=== PATIENT | female | born 1985 | race Two or more races ===

== ENCOUNTER 2016-10-09 23:13 | Inpatient (IN) | payer BC, MEDICAID, MEDICARE ==
[2016-10-10 00:44] LABS: Hematocrit 34 % (35-47); Hemoglobin 10.6 g/dl (12.0-16.0); Mean Corpuscular HGB Conc 32 g/dl (31-36); Mean Corpuscular Hemoglobin 24 pg (27-31); Mean Corpuscular Volume 76 fL (80-97); Mean Platelet Volume 8 um3 (7.4-10.4); Red Blood Count 4.38 10^6/ul (4.0-5.4); Red Cell Distribution Width 17 % (10.5-15); White Blood Count 7.2 10^3/ul (3.5-10.8)
[2016-10-10 00:56] LABS: ALT 15 U/L (7-52); Albumin 3.4 g/dL (3.2-5.2); Alkaline Phosphatase 67 U/L (34-104); BUN/Creatinine Ratio 15.9 (8-20); Blood Urea Nitrogen 10 mg/dL (6-24); CO2 Carbon Dioxide 26 mmol/L (22-32); Calcium 8.7 mg/dL (8.6-10.3); Chloride 106 mmol/L (101-111); EGFR African American 143.7 (>60); EGFR Non-African American 111.7 (>60); Globulin 3.2 g/dL (2-4); Glucose 110 mg/dL (70-100); Sodium 136 mmol/L (133-145); Total Protein 6.6 g/dL (6.4-8.9)
[2016-10-10 00:57] LABS: Acetaminophen < 15 mcg/mL; Alcohol < 10 mg/dL (<10); Salicylate < 2.50 mg/dL (<30)
[2016-10-10 01:41] LABS: AST 18 U/L (13-39); Anion Gap 4 mmol/L (2-11); Potassium 3.6 mmol/L (3.5-5.0)
--- NOTE | 2016-10-10 02:10 | ED ---
lita Mcgee Timothy, scribed for Mack Fernández MD on 10/09/16 at 2353 . Psychiatric Complaint - HPI Summary HPI Summary: Eve Rendon is a 30 yo female presenting to [facility] for a MHUE claiming "her mind is going crazy". Per triage, she denies any SI, but has thought about self- harm. She denies any drug use tonight. Her MHx includes psychiatric d/o. - History Of Current Complaint Chief Complaint: EDMentalHealth Time Seen by Provider: 10/09/16 23:48 Hx Obtained From: Patient Onset/Duration: Gradual Onset, Lasting Days, Still Present Timing: Constant Severity Initially: Moderate Severity Currently: Moderate Character: Depressed Has Suicidal: Denies: Thoughts - Allergies/Home Medications Allergies/Adverse Reactions: Allergies Allergy/AdvReac Type Severity Reaction Status Date / Time Alprazolam [From Xanax] Allergy Rash Verified 10/09/16 23:23 Aspirin [ASA] Allergy Rash Verified 10/09/16 23:23 Chlorpromazine Allergy Unknown Verified 10/09/16 23:23 [From Thorazine] Reaction Details Diazepam [From Valium] Allergy Rash Verified 10/09/16 23:23 Fentanyl Allergy Shortness Verified 10/09/16 23:23 of Breath [place] Allergy Unknown Verified 10/09/16 23:23 Reaction Details Risperidone [From Risperdal] Allergy Swelling Verified 10/09/16 23:23 Home Medications: Home Medications Benztropine TAB* [Cogentin TAB*] 1 mg PO BID 10/10/16 [History Confirmed ] Fluphenazine Decanoate* [Prolixin Decanoate*] 125 mg IM SEE INSTRUCTIONS [History Confirmed 10/10/16] Gabapentin TAB(NF) [Neurontin 600 mg TAB(NF)] 600 mg PO BID 10/10/16 [History Confirmed 10/10/16] Gabapentin TAB(NF) [Neurontin 600 mg TAB(NF)] 900 mg PO BEDTIME 10/10/16 [ History Confirmed 10/10/16] Hydrochlorothiazide TAB* [Hydrodiuril TAB*] 50 mg PO BID 10/10/16 [History Confirmed 10/10/16] Lorazepam [Ativan 2 MG TAB] 2 mg PO QID 10/10/16 [History Confirmed 10/10/16] Oxycodone TAB(NF) [Oxycodone HCl 10 MG] 10 mg PO Q6H PRN 10/10/16 [History Confirmed 10/10/16] Potassium Chloride LIQUID* [Klor-Con LIQUID*] 20 meq PO DAILY 10/10/16 [History Confirmed 10/10/16] Sertraline* [Zoloft*] 100 mg PO BID 10/10/16 [History Confirmed 10/10/16] buPROPion SR TAB* [Wellbutrin SR TAB*] 150 mg PO BID 10/10/16 [History Confirmed 10/10/16] PMH/Surg Hx/FS Hx/Imm Hx Infectious Disease History: Denies: Traveled Outside the [place] in Last 30 Days - Family History Known Family History: Positive: Cardiac Disease, Hypertension, Diabetes - Social History Hx Substance Use: Yes Hx Tobacco Use: Yes Smoking Status (MU): Heavy Every Day Tobacco Smoker Review of Systems Constitutional: Negative Eyes: Negative ENT: Negative Cardiovascular: Negative Respiratory: Negative Gastrointestinal: Negative Genitourinary: Negative Musculoskeletal: Negative Skin: Negative Neurological: Negative Positive: Depressed All Other Systems Reviewed And Are Negative: Yes Physical Exam Triage Information Reviewed: Yes Vital Signs On Initial Exam: Initial Vitals Temp Pulse Resp BP Pulse Ox 97.1 F 100 20 114/85 100 10/09/16 23:17 10/09/16 23:17 10/09/16 23:17 10/09/16 23:17 10/09/16 23:17 Vital Signs Reviewed: Yes Appearance: Positive: Well-Appearing, No Pain Distress, Well-Nourished Skin: Positive: Warm, Skin Color Reflects Adequate Perfusion, Dry Head/Face: Positive: Normal Head/Face Inspection Eyes: Positive: EOMI, KI ENT: Positive: Normal ENT inspection Neck: Positive: Supple, Nontender Respiratory/Lung Sounds: Positive: Clear to Auscultation, Breath Sounds Present Cardiovascular: Positive: RRR Abdomen Description: Positive: Nontender, Soft Bowel Sounds: Positive: Present Musculoskeletal: Positive: Normal, Strength/ROM Intact Neurological: Positive: Normal, Sensory/Motor Intact, Alert, Oriented to Person Place, Time Psychiatric: Positive: Anxious - pressured speech, Pt appears anxious Diagnostics - Vital Signs Vital Signs Temp Pulse Resp BP Pulse Ox 10/09/16 23:17 97.1 F 100 20 114/85 100 - Laboratory Lab Results: Lab Results 10/09/16 10/09/16 Range/Units 23:52 23:52 WBC 7.2 (3.5-10.8) 10^3/ul RBC 4.38 (4.0-5.4) 10^6/ul Hgb 10.6 L (12.0-16.0) g/dl Hct 34 L (35-47) % MCV 76 L (80-97) fL MCH 24 L (27-31) pg MCHC 32 (31-36) g/dl RDW 17 H (10.5-15) % Plt Count 224 (150-450) 10^3/ul MPV 8 (7.4-10.4) um3 Neut % (Auto) 49.3 (38-83) % Lymph % (Auto) 41.0 (25-47) % [place] % (Auto) 6.0 (1-9) % Eos % (Auto) 2.5 (0-6) % Baso % (Auto) 1.2 (0-2) % Absolute Neuts (auto) 3.5 (1.5-7.7) 10^3/ul Absolute Lymphs (auto) 2.9 (1.0-4.8) 10^3/ul Absolute Monos (auto) 0.4 (0-0.8) 10^3/ul Absolute Eos (auto) 0.2 (0-0.6) 10^3/ul Absolute Basos (auto) 0.1 (0-0.2) 10^3/ul Absolute Nucleated RBC 0.01 10^3/ul Nucleated RBC % 0.2 Sodium 136 (133-145) mmol/L Potassium 3.6 (3.5-5.0) mmol/L Chloride 106 (101-111) mmol/L Carbon Dioxide 26 (22-32) mmol/L Anion Gap 4 (2-11) mmol/L BUN 10 (6-24) mg/dL Creatinine 0.63 (0.51-0.95) mg/dL Est GFR ( Amer) 143.7 (>60) Est GFR (Non-Af Amer) 111.7 (>60) BUN/Creatinine Ratio 15.9 (8-20) Glucose 110 H (70-100) mg/dL Calcium 8.7 (8.6-10.3) mg/dL Total Bilirubin 0.30 (0.2-1.0) mg/dL AST 18 (13-39) U/L ALT 15 (7-52) U/L Alkaline Phosphatase 67 (34-104) U/L Total Protein 6.6 (6.4-8.9) g/dL Albumin 3.4 (3.2-5.2) g/dL Globulin 3.2 (2-4) g/dL Albumin/Globulin Ratio 1.1 (1-3) TSH 1.20 (0.34-5.60) mcIU/mL Beta HCG, Quant < 0.60 mIU/mL Salicylates < 2.50 (<30) mg/dL Acetaminophen < 15 mcg/mL Serum Alcohol < 10 (<10) mg/dL Result Diagrams: 10/09/16 23:52 10/09/16 23:52 Lab Statement: Any lab studies that have been ordered have been reviewed, and results considered in the medical decision making process. Course/Dx - Course Assessment/Plan: Eve Rendon is a 30 yo female presenting to [facility] for a MHUE. Her medication list is reviewed this visit. She is medically clear for MHUE at 0130. Per her MHUE recommendation, she will be admitted to [facility]. NO CRITICAL CARE TIME. ADMIT MHU STABLE. - Differential Dx/Clinical Impression Provider Diagnosis: Mental health problem Discharge - Discharge Plan Condition: Stable Disposition: ADMITTED TO [facility] Referrals: Non Staff,Doctor [Primary Care Provider] - The documentation as recorded by the lita brady Timothy accurately reflects the service I personally performed and the decisions made by me, Mack Fernández MD.
[2016-10-10] MEDS ORDERED: Al Hydrox/Mg Hydrox/Simet LIQ* 30 ML UDC PO PRN (04:26)
[2016-10-10] MEDS ORDERED: Mouth Piece, Nicotine* 1 EACH CARTRIDGE INH ONE (05:00)
[2016-10-10] MEDS ORDERED: Sertraline* 100 MG TAB PO SCH (09:00)
[2016-10-10] MEDS: Gabapentin CAP(*) 300 MG PO SCH ×2 (09:32→20:46)
[2016-10-10] MEDS: Vitamin THERAPEUTIC TAB PO SCH (09:32)
[2016-10-10] MEDS: Acetaminophen TAB* 325 MG PO PRN ×2 (09:32→16:13)
[2016-10-10] MEDS: Benztropine TAB* 1 MG PO SCH ×2 (09:33→20:46)
[2016-10-10] MEDS: Hydrochlorothiazide TAB* 50 MG PO SCH ×2 (09:33→20:46)
[2016-10-10] MEDS: buPROPion SR TAB.SR* 150 MG PO SCH ×2 (09:33→20:46)
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
[2016-10-10] MEDS: Sertraline* 100 MG TAB PO SCH (12:40)
[2016-10-10] MEDS: hydrOXYzine HCL TAB* 25 MG PO PRN ×2 (14:49→19:40)
[2016-10-10] MEDS ORDERED: Albuterol HFA INHALER* 8 gm MDI INH PRN (14:50)
[2016-10-10] MEDS: BENZOCAINE 20% TOPICAL PRN (15:15)
[2016-10-11] MEDS: Acetaminophen TAB* 325 MG PO PRN ×4 (02:10→18:16)
[2016-10-11] MEDS: BENZOCAINE 20% TOPICAL PRN ×2 (02:11→06:44)
[2016-10-11] MEDS: Benztropine TAB* 1 MG PO SCH ×2 (08:26→20:25)
[2016-10-11] MEDS: Sertraline* 100 MG TAB PO SCH ×2 (08:26→11:57)
[2016-10-11] MEDS: Gabapentin CAP(*) 300 MG PO SCH ×2 (08:26→20:25)
[2016-10-11] MEDS: buPROPion SR TAB.SR* 150 MG PO SCH ×2 (08:26→20:25)
[2016-10-11] MEDS: Hydrochlorothiazide TAB* 50 MG PO SCH ×2 (08:27→20:26)
[2016-10-11] MEDS: Vitamin THERAPEUTIC TAB PO SCH (08:27)
[2016-10-11] MEDS: hydrOXYzine HCL TAB* 25 MG PO PRN ×3 (08:28→18:16)
--- NOTE | 2016-10-11 11:14 | PN ---
MHU: Group Therapy Note - Service Type Service Type: 11501 Group Psychotherapy - Cognitive Behavioral Group Therapy ( CBT):Patient was attentive and participatory in CBT programming this morning, and remained in good behavioral control. Patient expressed positive insights regarding relevant treatment interventions and goals.
[2016-10-11] MEDS: Nicotine GUM* 2 MG PO PRN ×3 (11:57→18:16)
--- NOTE | 2016-10-11 13:11 | PN ---
Subjective - Subjective Service Type: 36575 Hosp care 25 min moderate complexity Subjective: Jessica reports feeling much better. She said she thinks Cocaine use caused her crisis, and was open to the idea of avoiding it and getting support for that. She affirmed she feels good about being alive, and denied urges to harm herself. She noted feeling "a little shakey" attributing it to nicotine withdrawl (we started replacement treatment). She apologized for what she framed as her manner with me yesterday. She was interested in discussing length of stay and release planning, and also asked for a medication addition. After review of options and prior experiences , she elected to try Pin[place]ney again. I reviewed it's profile, monitoring requirements, and risks, and she capably consented. We met with her , who sees her much improved today. He agreed there was a problem with her Cocaine use and supported her overall treatment here. Objective - Appearance Appearance: Obese Hygiene: Normal Grooming: Well Kept - Behavior Psychomotor Activities: Normal - Attitude and Relatedness Attitude and Relatedness: Appropriate Eye Contact: Good - Speech Quality: Unpressured Latencies: Normal Quantity: Appropriate - Mood Patient's Decription of Mood: "Okay" - Affect Observed Affect: Non-labile Affect Consistent with: Dysphoria - mild - Thought Process Patient's Thought Process: Coherent, Goal Directed Thought Content: No Passive Wish, No Suicidal Planning, No Homicidal Ideation, No Paranoid Ideation - Sensorium Experiencing Hallucinations: No, Sensorium is Clear - Level of Consciousness Level of Consciousness: Alert - Impulse Control Impulse Control: Intact - Insight and Judgement Insight and Judgement: Fair Assessment - Assessment Merits Inpatient Hospitalization: For Stabilization, To Initiate Treatment, For Ongoing Evaluation, Consolidate Improvements, For Discharge Planning Inpatient DSM-IV Dx: Schizoaffective disorder. Cocaine use disorder with induced mood symptoms. Cannabis use disorder. Borderline personality traits Clinical Impression: 30-year-old female with a history of schizoaffective disorder diagnosis, multiple prior psychiatric hospitalizations, suicide attempts, violence, self- injury, eating disorder, pseudoseizures, substance abuse, and concerns for borderline personality traits. She was admitted to the psychiatric unit coming to the hospital seeking help due to concerns over urges to cut herself with suicidal features. She apparently recently made a suicide attempt and was hospitalized in [place]. Biological factors include her report of using cocaine and cannabis currently, and her regimen with unopposed antidepressants without mood stabilizer or antipsychotic. Stabilizing here. Has an evolving clinical picture with mood improvement, better engagement. Course supports her claim that she is in a cocaine related crisis. She had apparent non-epileptic seizure-like activity 10/10, consistent with prior reported events. Medication management will involve continuing the outpatient regimen without Ativan (based on high abuse potential) and starting a retrial of Pinckney ( starting only 600mg/day given her HCTZ use). Plan - Plan Treatment Plan: Name: JESSICA BARRAGAN Birthdate: 1985 [id number] Continued Medication Management: Start Medication Medications: Current Medications Acetaminophen (Tylenol Tab*) 650 mg PO Q4H PRN PRN Reason: PAIN or TEMP > 101 F Last Admin: 10/11/16 06:44 Dose: 650 mg Al Hydrox/Mg Hydrox/Simethicone (Maalox Plus*) 30 ml PO Q4H PRN PRN Reason: INDIGESTION Albuterol (Ventolin Hfa Inhaler*) 2 puff INH Q4H PRN PRN Reason: WHEEZING/SOB Last Admin: 10/10/16 14:57 Dose: 2 puff Benztropine Mesylate (Cogentin Tab*) 1 mg PO BID [facility] Last Admin: 10/11/16 08:26 Dose: 1 mg Bupropion HCl (Wellbutrin Sr Tab*) 150 mg PO BID [facility] Last Admin: 10/11/16 08:26 Dose: 150 mg Gabapentin (Neurontin Cap(*)) 600 mg PO BID [facility] Last Admin: 10/11/16 08:26 Dose: 600 mg Hydrochlorothiazide (Hydrodiuril Tab*) 50 mg PO BID [facility] Last Admin: 10/11/16 08:27 Dose: 50 mg Hydroxyzine HCl (Atarax Tab*) 25 mg PO Q4H PRN PRN Reason: ANXIETY Last Admin: 10/11/16 08:28 Dose: 25 mg Multivitamins (Theragran Tab*) 1 tab PO DAILY [facility] Last Admin: 10/11/16 08:27 Dose: 1 tab Nicotine (Nicotine Inhaler*) 10 mg INH Q2H PRN PRN Reason: CRAVING Nicotine Polacrilex (Nicotine Gum*) 2 mg PO Q2H PRN PRN Reason: CRAVING Last Admin: 10/11/16 11:57 Dose: 2 mg Pto: Benzocaine 20% 1 dose TOPICAL QID PRN PRN Reason: TOOTHPAIN Last Admin: 10/11/16 06:44 Dose: 1 dose Sertraline HCl (Zoloft*) 100 mg PO 0800,1200 [facility] Last Admin: 10/11/16 11:57 Dose: 100 mg - Discharge Plan Discharge Plan: Outpatient Follow Up
[2016-10-11] MEDS ORDERED: Mouth Piece, Nicotine* 1 EACH CARTRIDGE ONE (18:15)
[2016-10-11] MEDS: Nicotine Inhaler* 10 MG AMP INH PRN (18:16)
[2016-10-11] MEDS: Lithium Carbonate TAB* 300 MG PO SCH (20:26)
[2016-10-12] MEDS: hydrOXYzine HCL TAB* 25 MG PO PRN ×4 (01:10→18:33)
[2016-10-12] MEDS: Acetaminophen TAB* 325 MG PO PRN ×4 (01:10→18:34)
[2016-10-12] MEDS: BENZOCAINE 20% TOPICAL PRN (01:37)
[2016-10-12] MEDS: Vitamin THERAPEUTIC TAB PO SCH (08:23)
[2016-10-12] MEDS: Lithium Carbonate TAB* 300 MG PO SCH ×2 (08:24→20:04)
[2016-10-12] MEDS: Gabapentin CAP(*) 300 MG PO SCH ×2 (08:24→20:04)
[2016-10-12] MEDS: Benztropine TAB* 1 MG PO SCH ×2 (08:24→20:04)
[2016-10-12] MEDS: Sertraline* 100 MG TAB PO SCH ×2 (08:24→11:52)
[2016-10-12] MEDS: buPROPion SR TAB.SR* 150 MG PO SCH ×2 (08:24→20:03)
[2016-10-12] MEDS: Hydrochlorothiazide TAB* 50 MG PO SCH ×2 (08:24→20:03)
[2016-10-12] MEDS: Nicotine GUM* 2 MG PO PRN ×2 (08:25→16:00)
[2016-10-12] MEDS: Nicotine PATCH 21 MG/24 HR* PATCH TRANSDERM SCH (08:50)
--- NOTE | 2016-10-12 13:34 | PN ---
Subjective - Subjective Service Type: 80363 Hosp care 15 min low complexity Subjective: Jessica reports progress - denies self harm urges, mood and outlook are "good" and she notes feeling more stable. Still feels "shaky" and thinks its due to stopping smoking, (and possibly Ativan ) - it's easily tolerable. She is eager to plan release for Saturday, agrees with medication and treatment plan, and denies side effect with Marvell. Objective - Appearance Appearance: Obese Hygiene: Normal Grooming: Well Kept - Behavior Psychomotor Activities: Normal - Attitude and Relatedness Attitude and Relatedness: Cooperative Eye Contact: Good - Speech Quality: Unpressured Latencies: Normal Quantity: Appropriate - Mood Patient's Decription of Mood: "Good" - Affect Observed Affect: Tense Affect Consistent with: Euthymia - Thought Process Patient's Thought Process: Coherent, Goal Directed Thought Content: No Passive Wish, No Suicidal Planning, No Homicidal Ideation, No Paranoid Ideation - Sensorium Experiencing Hallucinations: No, Sensorium is Clear - Level of Consciousness Level of Consciousness: Alert - Impulse Control Impulse Control: Intact - Insight and Judgement Insight and Judgement: Fair Assessment - Assessment Merits Inpatient Hospitalization: For Stabilization, To Initiate Treatment, For Ongoing Evaluation, Consolidate Improvements, For Discharge Planning Inpatient DSM-IV Dx: Schizoaffective disorder. Cocaine use disorder with induced mood symptoms. Cannabis use disorder. Borderline personality traits Clinical Impression: 30-year-old female with a history of schizoaffective disorder diagnosis, multiple prior psychiatric hospitalizations, suicide attempts, violence, self- injury, eating disorder, pseudoseizures, substance abuse, and concerns for borderline personality traits. She was admitted to the psychiatric unit coming to the hospital seeking help due to concerns over urges to cut herself with suicidal features. She apparently recently made a suicide attempt and was hospitalized in [place]. Biological factors include her report of using cocaine and cannabis currently, and her regimen with unopposed antidepressants without mood stabilizer or antipsychotic. Stabilizing here. Improving substantially on clinical basis. Has progressive mood improvement and stabilization, better engagement, lower distress. Course supports her claim that she is in a cocaine related crisis. She had apparent non-epileptic seizure-like activity 10/10, consistent with prior reported events. She is safe on checks, adherent with routines, and free of ongoing suicidal ideation. Medication management will involve continuing the outpatient regimen without Ativan (based on high abuse potential) and starting a retrial of Marvell ( started only 600mg/day given her HCTZ use). Plan - Plan Treatment Plan: Name: JESSICA BARRAGAN Birthdate: 1985 [id number] Continued Medication Management: Start Medication Medications: Current Medications Acetaminophen (Tylenol Tab*) 650 mg PO Q4H PRN PRN Reason: PAIN or TEMP > 101 F Last Admin: 10/12/16 12:54 Dose: 650 mg Al Hydrox/Mg Hydrox/Simethicone (Maalox Plus*) 30 ml PO Q4H PRN PRN Reason: INDIGESTION Last Admin: 10/11/16 20:26 Dose: 30 ml Albuterol (Ventolin Hfa Inhaler*) 2 puff INH Q4H PRN PRN Reason: WHEEZING/SOB Last Admin: 10/10/16 14:57 Dose: 2 puff Benztropine Mesylate (Cogentin Tab*) 1 mg PO BID [facility] Last Admin: 10/12/16 08:24 Dose: 1 mg Bupropion HCl (Wellbutrin Sr Tab*) 150 mg PO BID [facility] Last Admin: 10/12/16 08:24 Dose: 150 mg Gabapentin (Neurontin Cap(*)) 600 mg PO BID [facility] Last Admin: 10/12/16 08:24 Dose: 600 mg Hydrochlorothiazide (Hydrodiuril Tab*) 50 mg PO BID [facility] Last Admin: 10/12/16 08:24 Dose: 50 mg Hydroxyzine HCl (Atarax Tab*) 25 mg PO Q4H PRN PRN Reason: ANXIETY Last Admin: 10/12/16 12:54 Dose: 25 mg Marvell Carbonate (Marvell Carbonate Tab*) 300 mg PO BID [facility] Last Admin: 10/12/16 08:24 Dose: 300 mg Multivitamins (Theragran Tab*) 1 tab PO DAILY [facility] Last Admin: 10/12/16 08:23 Dose: 1 tab Nicotine (Nicotine Inhaler*) 10 mg INH Q2H PRN PRN Reason: CRAVING Last Admin: 10/11/16 18:16 Dose: 10 mg Nicotine (Nicotine Patch 21 Mg/24 Hr*) 1 patch TRANSDERM DAILY [facility] Last Admin: 10/12/16 08:50 Dose: 1 patch Nicotine Polacrilex (Nicotine Gum*) 2 mg PO Q2H PRN PRN Reason: CRAVING Last Admin: 10/12/16 08:25 Dose: 2 mg Pto: Benzocaine 20% 1 dose TOPICAL QID PRN PRN Reason: TOOTHPAIN Last Admin: 10/12/16 01:37 Dose: 1 dose Pharmacy Profile Note (Nicotine Patch Removal Note*) 1 note PATCH OFF 2100 [facility] Sertraline HCl (Zoloft*) 100 mg PO 0800,1200 [facility] Last Admin: 10/12/16 11:52 Dose: 100 mg - Discharge Plan Discharge Plan: Outpatient Follow Up
[2016-10-12] MEDS: Nicotine Inhaler* 10 MG AMP INH PRN (16:00)
[2016-10-12] MEDS: Nicotine Patch Removal NOTE PATCH OFF SCH (20:05)
[2016-10-13] MEDS: Acetaminophen TAB* 325 MG PO PRN ×2 (00:29→08:40)
[2016-10-13] MEDS: hydrOXYzine HCL TAB* 25 MG PO PRN ×4 (00:29→21:06)
[2016-10-13] MEDS: Sertraline* 100 MG TAB PO SCH ×2 (08:35→13:38)
[2016-10-13] MEDS: Benztropine TAB* 1 MG PO SCH ×2 (08:36→21:02)
[2016-10-13] MEDS: buPROPion SR TAB.SR* 150 MG PO SCH ×2 (08:36→21:01)
[2016-10-13] MEDS: Gabapentin CAP(*) 300 MG PO SCH ×2 (08:36→21:01)
[2016-10-13] MEDS: Lithium Carbonate TAB* 300 MG PO SCH ×2 (08:37→21:01)
[2016-10-13] MEDS: Vitamin THERAPEUTIC TAB PO SCH (08:38)
[2016-10-13] MEDS: Nicotine PATCH 21 MG/24 HR* PATCH TRANSDERM SCH (08:38)
[2016-10-13] MEDS: Nicotine GUM* 2 MG PO PRN (08:40)
[2016-10-13] MEDS: Hydrochlorothiazide TAB* 50 MG PO SCH ×2 (08:41→21:01)
--- NOTE | 2016-10-13 14:19 | PN ---
Subjective - Subjective Service Type: 61477 Hosp care 15 min low complexity Subjective: I reviewed Dr Aparicio's sign-out and staff notes since Saturday afternoon. We briefly reviewed events leading to hospitalization (which she attributes to cocaine use). Mood is "really good" and rates depression as 1/10 and anxiety as 4/10 (10 being the worst). Some anxiety that she won't be discharged on Saturday. Slept well, but did take Tylenol in the middle of the night due to headache. Daytime energy is stable. Appetite is stable. Notes mild headache but denies other physical complaints. Denies medication side effects (other than headache) . Pleased that her mother came to visit today (it went well). She is future oriented and is excited to see her son after discharge. She denies SI or thoughts of self-harm. Denies thoughts to harm others. Denies hallucinations, paranoia. Objective - Appearance Appearance: Obese, Other - found in milieu, socializing with other pts Dysmorphic Features: No Grooming: Fairly Well Kept - Behavior Psychomotor Activities: Normal Exhibits Abnormal Movement: No - Attitude and Relatedness Attitude and Relatedness: Cooperative Eye Contact: Good - Speech Quality: Unpressured Latencies: Normal Quantity: Terse - simple language - Mood Patient's Decription of Mood: "Good" - Affect Observed Affect: Non-labile Affect Consistent with: Euthymia - Thought Process Patient's Thought Process: Coherent - concrete Thought Content: No Passive Wish, No Suicidal Planning, No Homicidal Ideation, No Paranoid Ideation - Sensorium Experiencing Hallucinations: No, Sensorium is Clear - Level of Consciousness Level of Consciousness: Alert Orientation: Yes Intact, Yes Orientated to Time, Yes Orientated to Place, Yes Orientated to Person - Impulse Control Impulse Control: Intact - Insight and Judgement Insight and Judgement: Fair Assessment - Assessment Merits Inpatient Hospitalization: For Ongoing Evaluation, Consolidate Improvements, For Discharge Planning, Pending Safe DC Plan Inpatient DSM-IV Dx: Schizoaffective disorder. Cocaine use disorder with induced mood symptoms. Cannabis use disorder. Borderline personality traits Clinical Impression: 30yo female with a hx of schizoaffective d/o, eating disorder, pseudoseizures, substance misuse, cluster b traits and past suicide attempts and psychiatric hospitalizations admitted for urges to self-harm. Doing well and tolerating recent med change. Plan - Plan Treatment Plan: Name: JESSICA BARRAGAN Birthdate: 1985 [id number] -to continue current meds Medications: Current Medications Acetaminophen (Tylenol Tab*) 650 mg PO Q4H PRN PRN Reason: PAIN or TEMP > 101 F Last Admin: 10/13/16 08:40 Dose: 650 mg Al Hydrox/Mg Hydrox/Simethicone (Maalox Plus*) 30 ml PO Q4H PRN PRN Reason: INDIGESTION Last Admin: 10/11/16 20:26 Dose: 30 ml Albuterol (Ventolin Hfa Inhaler*) 2 puff INH Q4H PRN PRN Reason: WHEEZING/SOB Last Admin: 10/10/16 14:57 Dose: 2 puff Benztropine Mesylate (Cogentin Tab*) 1 mg PO BID [facility] Last Admin: 10/13/16 08:36 Dose: 1 mg Bupropion HCl (Wellbutrin Sr Tab*) 150 mg PO BID [facility] Last Admin: 10/13/16 08:36 Dose: 150 mg Gabapentin (Neurontin Cap(*)) 600 mg PO BID [facility] Last Admin: 10/13/16 08:36 Dose: 600 mg Hydrochlorothiazide (Hydrodiuril Tab*) 50 mg PO BID [facility] Last Admin: 10/13/16 08:41 Dose: 50 mg Hydroxyzine HCl (Atarax Tab*) 25 mg PO Q4H PRN PRN Reason: ANXIETY Last Admin: 10/13/16 08:40 Dose: 25 mg Russell Carbonate (Russell Carbonate Tab*) 300 mg PO BID [facility] Last Admin: 10/13/16 08:37 Dose: 300 mg Multivitamins (Theragran Tab*) 1 tab PO DAILY [facility] Last Admin: 10/13/16 08:38 Dose: Not Given Nicotine (Nicotine Inhaler*) 10 mg INH Q2H PRN PRN Reason: CRAVING Last Admin: 10/12/16 16:00 Dose: 10 mg Nicotine (Nicotine Patch 21 Mg/24 Hr*) 1 patch TRANSDERM DAILY [facility] Last Admin: 10/13/16 08:38 Dose: 1 patch Nicotine Polacrilex (Nicotine Gum*) 2 mg PO Q2H PRN PRN Reason: CRAVING Last Admin: 10/13/16 08:40 Dose: 2 mg Pto: Benzocaine 20% 1 dose TOPICAL QID PRN PRN Reason: TOOTHPAIN Last Admin: 10/12/16 01:37 Dose: 1 dose Pharmacy Profile Note (Nicotine Patch Removal Note*) 1 note PATCH OFF 2099 [facility] Last Admin: 10/12/16 20:05 Dose: 1 note Sertraline HCl (Zoloft*) 100 mg PO 0800,1200 [facility] Last Admin: 10/13/16 13:38 Dose: 100 mg
[2016-10-13] MEDS: BENZOCAINE 20% TOPICAL PRN (21:06)
[2016-10-13] MEDS: Nicotine Patch Removal NOTE PATCH OFF SCH (21:07)
[2016-10-14] MEDS: Acetaminophen TAB* 325 MG PO PRN ×3 (05:55→20:09)
[2016-10-14] MEDS: Nicotine PATCH 21 MG/24 HR* PATCH TRANSDERM SCH (08:50)
[2016-10-14] MEDS: Gabapentin CAP(*) 300 MG PO SCH ×2 (08:53→20:08)
[2016-10-14] MEDS: Sertraline* 100 MG TAB PO SCH ×2 (08:53→12:31)
[2016-10-14] MEDS: Vitamin THERAPEUTIC TAB PO SCH (08:53)
[2016-10-14] MEDS: Lithium Carbonate TAB* 300 MG PO SCH ×2 (08:53→20:09)
[2016-10-14] MEDS: Benztropine TAB* 1 MG PO SCH ×2 (08:54→20:10)
[2016-10-14] MEDS: buPROPion SR TAB.SR* 150 MG PO SCH ×2 (08:54→20:09)
[2016-10-14] MEDS: Hydrochlorothiazide TAB* 50 MG PO SCH ×2 (08:55→20:08)
[2016-10-14] MEDS: hydrOXYzine HCL TAB* 25 MG PO PRN ×2 (08:56→20:09)
[2016-10-14] MEDS: Nicotine GUM* 2 MG PO PRN (08:57)
[2016-10-14] MEDS: Nicotine Patch Removal NOTE PATCH OFF SCH (20:10)
[2016-10-15] MEDS: hydrOXYzine HCL TAB* 25 MG PO PRN (06:23)
[2016-10-15] MEDS: Acetaminophen TAB* 325 MG PO PRN (06:23)
[2016-10-15 07:17] VITALS: BP 141/98
[2016-10-15] MEDS: Lithium Carbonate TAB* 300 MG PO SCH (08:29)
[2016-10-15] MEDS: Benztropine TAB* 1 MG PO SCH (08:29)
[2016-10-15] MEDS: Gabapentin CAP(*) 300 MG PO SCH (08:29)
[2016-10-15] MEDS: Vitamin THERAPEUTIC TAB PO SCH (08:29)
[2016-10-15] MEDS: Nicotine PATCH 21 MG/24 HR* PATCH TRANSDERM SCH (08:30)
[2016-10-15] MEDS: Sertraline* 100 MG TAB PO SCH ×2 (08:30→12:48)
[2016-10-15] MEDS: Hydrochlorothiazide TAB* 50 MG PO SCH (08:33)
[2016-10-15] MEDS: buPROPion SR TAB.SR* 150 MG PO SCH (08:34)
--- NOTE | 2016-10-15 10:02 | DS ---
Subjective - Subjective Service Types: 07381 [facility] Day Mgmt simple under 30 min Discharge Date: 10/15/16 Subjective: Eve remained interested in discharge today. She denied subjective setbacks, though she acknowledged getting very upset this weekend - she cited a peer cutting herself and bleeding on the floor. She notes feeling calm and in control now, denies unmanageable symptoms, emotional pain, challenging anxiety. She affirms she and others are safe - denies self harm urges, suicidal or homicidal ideation. We reviewed medications and aftercare plan. We specifically reconciled her Rx. for, and use of, Prolixin decanoate. Pharmacy ([facility]) indicated no use since May due to her concern for cost. Eve said she is interested in, and willing, to take it and asks for 25 mg dose of Decanoate (prior dose was apparently 75mg). This I think was reasonable. She affirms she sees no barriers to routine support and care, or emergency help if needed again. We discussed Cocaine - she affirms sobriety is a priority and that she has the resources to attain it - and she agrees to make it a focus of treatment. Objective - Appearance Appearance: Obese Hygiene: Normal Grooming: Well Kept - Behavior Psychomotor Activities: Normal - Attitude and Relatedness Attitude and Relatedness: Cooperative Eye Contact: Good - Speech Quality: Unpressured Latencies: Normal Quantity: Appropriate - Mood Patient's Decription of Mood: "Anxious" - Affect Observed Affect: Non-labile Affect Consistent with: Dysphoria - mild - Thought Process Patient's Thought Process: Coherent, Goal Directed Thought Content: No Passive Wish, No Suicidal Planning, No Homicidal Ideation, No Paranoid Ideation - Sensorium Experiencing Hallucinations: No, Sensorium is Clear - Level of Consciousness Level of Consciousness: Alert - Impulse Control Impulse Control: Intact - Insight and Judgement Insight and Judgement: Fair Treatment Course & Assessment Clinical Course & Impression: 30-year-old female with a history of schizoaffective disorder diagnosis, multiple prior psychiatric hospitalizations, suicide attempts, violence, self- injury, eating disorder, pseudoseizures, substance abuse, and concerns for borderline personality traits. She was admitted to the psychiatric unit coming to the hospital seeking help due to concerns over urges to cut herself with suicidal features. She apparently recently made a suicide attempt and was hospitalized in [place]. Biological factors include her report of using cocaine and cannabis currently, and her regimen with unopposed antidepressants without mood stabilizer (initially my understanding was that she was not on an antipsychotic , but in planning release found that she was at least intended to be getting Prolixin injections, but had none since May). 10/15/16 Clear for release. Eve stabilized here, and she attained substantial improvement on clinical basis. She quickly demonstrated progressive mood improvement - with reduced dysphoria and mood lability, better engagement, and lower distress. She had a setback 10/13 with some agitation and threatening stances - with clear precipitant of a peer cutting herself with a razor and bleeding on the floor. She settled down after that and at this time has very low symptom burden. She had apparent non-epileptic seizure-like activity 10/10, consistent with prior reported events. She was basically safe on checks, adherent with routines, and free of ongoing suicidal ideation or self harm urges. Her course, with rapid progress, supports her claim that she was in a cocaine related crisis. She appears more motivated for sobriety and accepts that her use be a focus of ongoing treatment. Medication management involved continuing the outpatient regimen without Ativan (based on high abuse potential) and starting a retrial of Pisek (started only 600mg/day given her HCTZ use - initial level 10/15 was 0.41). Additionally, we restarted Prolixin Decanoate at a reduced dose of 25mg per injection ([id number]). Given her improvements, she is appropriate again for outpatient care. Based on her history and conditions, Eve is at high chronic risk for suicide and violence. At this time acute risk is assessed as reduced and acceptable for outpatient status based on her benign current thinking and behavior, her lower symptom burden, and the absence of acute impairing factors. Clear for Discharge: Adequate Clinical Respons, Acceptable Safety Profile, Low Utility of Inpt Care Inpatient DSM-IV Dx: Schizoaffective disorder. Cocaine use disorder with induced mood symptoms. Cannabis use disorder. Borderline personality traits Discharge Planning - Discharge Planning Discharge Plan: Outpatient Follow Up Outpatient Program: Private Clinician(s) Recommendations for Continuing Care: Medication Management, Psychotherapy, Substance Abuse Counseling, Routine Metabolic Monitoring, Therapeutic Drug Levels, Primary Care Followup Medications: Current Medications Albuterol (Ventolin Hfa Inhaler*) 2 puff INH Q4H PRN PRN Reason: WHEEZING/SOB Last Admin: 10/10/16 14:57 Dose: 2 puff Benztropine Mesylate (Cogentin Tab*) 1 mg PO BID [facility] Last Admin: 10/15/16 08:29 Dose: 1 mg Bupropion HCl (Wellbutrin Sr Tab*) 150 mg PO BID [facility] Last Admin: 10/15/16 08:34 Dose: 150 mg Gabapentin (Neurontin Cap(*)) 600 mg PO BID [facility] Last Admin: 10/15/16 08:29 Dose: 600 mg Hydrochlorothiazide (Hydrodiuril Tab*) 50 mg PO BID [facility] Last Admin: 10/15/16 08:33 Dose: 50 mg Pisek Carbonate (Pisek Carbonate Tab*) 300 mg PO BID [facility] Last Admin: 10/15/16 08:29 Dose: 300 mg Nicotine (Nicotine Inhaler*) 10 mg INH Q2H PRN PRN Reason: CRAVING Last Admin: 10/12/16 16:00 Dose: 10 mg Sertraline HCl (Zoloft*) 100 mg PO 0800,1200 [facility] Last Admin: 10/15/16 08:30 Dose: 100 mg Prolixin Decanoate 25mg IM [id number] - given 10/15/16 Discharge Planning: Prescriptions provided for discharge [x] Yes Pisek Follow up care details as per social work arrangements. Patient response to discharge plan: [x] eager for discharge [] agreeable with discharge plan [] ambivalent about discharge [] disagrees with discharge today
[2016-10-15 10:06] LABS: BUN/Creatinine Ratio 16.7 (8-20); Calcium 9.8 mg/dL (8.6-10.3); EGFR African American 123.2 (>60); EGFR Non-African American 95.8 (>60); Potassium 3.3 mmol/L (3.5-5.0)
[2016-10-15 10:34] LABS: Lithium 0.41 mmol/L (0.6-1.2)
[2016-10-15] MEDS ORDERED: Benztropine TAB* 1 MG PO SCH (11:00)
[2016-10-15] MEDS ORDERED: Fluphenazine Decanoate* 25 MG/ML 5 ML VIAL IM SCH (13:00)
== END 2016-10-15 12:50 | disposition home or self-care (01) | DRG 885 ==
LOC: ED 23:13 → BSU 10-10 03:49
PROVIDERS: ADMIT Psychiatry & Neurology Psychiatry; ATTEND Psychiatry & Neurology Psychiatry
DX: F25.9 Schizoaffective disorder, unspecified (principal); R45.851 Suicidal ideations; Z68.42 Body mass index [BMI] 45.0-49.9, adult; F14.14 Cocaine abuse with cocaine-induced mood disorder; F12.10 Cannabis abuse, uncomplicated; E66.01 Morbid (severe) obesity due to excess calories; I10 Essential (primary) hypertension; Z88.6 Allergy status to analgesic agent; Z88.8 Allergy status to other drugs, medicaments and biological substances; Z81.8 Family history of other mental and behavioral disorders
CPT/HCPCS: 36415; 80048; 80053; 80178; 80320; 80329; 84443; 84702; 85025; 90853; 99222; 99231; 99232; 99238; A9270-GY; G0480; J2680

== ENCOUNTER 2017-10-07 22:28 | Emergency (ER) | payer MEDICARE ==
[2017-10-07 23:48] LABS: Hematocrit 25 % (35-47); Hemoglobin 7.9 g/dl (12.0-16.0); Mean Corpuscular HGB Conc 32 g/dl (31-36); Mean Corpuscular Hemoglobin 19 pg (27-31); Mean Corpuscular Volume 62 fL (80-97); Mean Platelet Volume 8.3 um3 (7.4-10.4); Platelet Count 276 10^3/ul (150-450); Red Blood Count 4.06 10^6/ul (4.00-5.40); Red Cell Distribution Width 26 % (10.5-15); White Blood Count 6.7 10^3/ul (3.5-10.8)
[2017-10-07 23:57] LABS: EGFR Non-African American 105.2 (>60)
[2017-10-08 00:34] VITALS: BP 0/0
--- NOTE | 2017-10-08 00:34 | ED ---
Stewart Mcgee Tariq, scribed for Moreno Otoole MD on 10/08/17 at 0021 . Complex/Multi-Sys Presentation - HPI Summary HPI Summary: A 31 y/o female presents to ED c/o abdominal and tooth pain. Pt stated that her tooth hurts for the pass couple days. Additionally, she states that she has ulcers which is why her abdomen hurts. She also feels depressed and "really sick in bedside way". She has been feeling anxious for the past 8 months and thinks she has PTSD. Pt denies CP and SOB.Pt asks for MHE. No SIs. - History Of Current Complaint Chief Complaint: EDMentalHealth Time Seen by Provider: 10/07/17 23:22 Hx Obtained From: Patient Onset/Duration: Gradual Onset Timing: Weeks Severity Currently: Mild Aggravating Factor(s): Nothing Alleviating Factor(s): Nothing Associated Signs And Symptoms: Positive: Abdominal Pain, Other - Tooth pain. Negative: Chest Pain - Allergies/Home Medications Allergies/Adverse Reactions: Allergies Allergy/AdvReac Type Severity Reaction Status Date / Time alprazolam [From Xanax] Allergy Rash Verified 10/07/17 23:21 aspirin Allergy Rash Verified 10/07/17 23:21 chlorpromazine Allergy Unknown Verified 10/07/17 23:21 [From Thorazine] Reaction Details diazepam [From Valium] Allergy Rash Verified 10/07/17 23:21 fentanyl Allergy Shortness Verified 10/07/17 23:21 of Breath haloperidol [From Haldol] Allergy Unknown Verified 10/07/17 23:21 Reaction Details risperidone [From Risperdal] Allergy Swelling Verified 10/07/17 23:21 PMH/Surg Hx/FS Hx/Imm Hx Cardiovascular History: Reports: Hx Hypertension Sensory History: Denies: Hx Contacts or Glasses, Hx Hearing Aid Opthamlomology History: Denies: Hx Contacts or Glasses Psychiatric History: Reports: Hx Anxiety, Hx Eating Disorder - Anorexia & Bulimia, Hx Depression, Hx Inpatient Treatment, Hx Community Mental Health Tx, Hx Substance Abuse Infectious Disease History: No Infectious Disease History: Denies: Traveled Outside the [place] in Last 30 Days - Family History Known Family History: Positive: Cardiac Disease, Hypertension, Diabetes - Social History Alcohol Use: Rare Hx Substance Use: Yes Substance Use Type: Reports: Cocaine, Marijuana Hx Tobacco Use: Yes Smoking Status (MU): Heavy Every Day Tobacco Smoker Type: Cigarettes Review of Systems Positive: Other - tooth pain. Negative: Fever Negative: Chest Pain Positive: Abdominal Pain All Other Systems Reviewed And Are Negative: Yes Physical Exam - Summary Physical Exam Summary: Appearance: Well appearing, no pain distress Skin: warm, dry, reflects adequate perfusion Head/face: normal Eyes: EOMI, KI ENT: normal Neck: supple, non-tender Respiratory: CTA, breath sounds present Cardiovascular: RRR, pulses symmetrical Abdomen: non-tender, soft Bowel Sounds: present Musculoskeletal: normal, strength/ROM intact Neuro: normal, sensory motor intact, A&Ox3 As per Dr. Otoole, pt refused Abx Triage Information Reviewed: Yes Vital Signs On Initial Exam: Initial Vitals Temp Pulse Resp BP Pulse Ox 98.6 F 113 20 140/89 99 10/07/17 22:34 10/07/17 22:34 10/07/17 22:34 10/07/17 22:34 10/07/17 22:34 Vital Signs Reviewed: Yes Diagnostics - Vital Signs Vital Signs Temp Pulse Resp BP Pulse Ox 10/07/17 22:34 98.6 F 113 20 140/89 99 - Laboratory Lab Results: Lab Results 10/07/17 10/07/17 Range/Units 23:33 23:33 WBC 6.7 (3.5-10.8) 10^3/ul RBC 4.06 (4.00-5.40) 10^6/ul Hgb 7.9 L (12.0-16.0) g/dl Hct 25 L (35-47) % MCV 62 L (80-97) fL MCH 19 L (27-31) pg MCHC 32 (31-36) g/dl RDW 26 H (10.5-15) % Plt Count 276 (150-450) 10^3/ul MPV 8.3 (7.4-10.4) um3 Neut % (Auto) Pending Lymph % (Auto) Pending Hill % (Auto) Pending Eos % (Auto) Pending Baso % (Auto) Pending Absolute Neuts (auto) Pending Absolute Lymphs (auto) Pending Absolute Monos (auto) Pending Absolute Eos (auto) Pending Absolute Basos (auto) Pending Absolute Nucleated RBC Pending Nucleated RBC % Pending Sodium 137 (135-145) mmol/L Potassium 3.5 (3.5-5.0) mmol/L Chloride 106 (101-111) mmol/L Carbon Dioxide 23 (22-32) mmol/L Anion Gap 8 (2-11) mmol/L BUN 11 (6-24) mg/dL Creatinine 0.66 (0.51-0.95) mg/dL Est GFR ( Amer) 135.2 (>60) Est GFR (Non-Af Amer) 105.2 (>60) BUN/Creatinine Ratio 16.7 (8-20) Glucose 87 (70-100) mg/dL Calcium 9.1 (8.6-10.3) mg/dL Total Bilirubin 0.20 (0.2-1.0) mg/dL AST 13 (13-39) U/L ALT 12 (7-52) U/L Alkaline Phosphatase 92 (34-104) U/L Total Protein 7.1 (6.4-8.9) g/dL Albumin 3.6 (3.2-5.2) g/dL Globulin 3.5 (2-4) g/dL Albumin/Globulin Ratio 1.0 (1-3) TSH Pending Beta HCG, Quant < 0.60 mIU/mL Salicylates < 2.50 (<30) mg/dL Acetaminophen < 15 mcg/mL Serum Alcohol < 10 (<10) mg/dL Result Diagrams: 10/07/17 23:33 10/07/17 23:33 Lab Statement: Any lab studies that have been ordered have been reviewed, and results considered in the medical decision making process. Complex Multi-Symp Course/Dx Course Of Treatment: Patient reports that she has been all over the state seeking out mental health care. She had previously had a good experience here so she decided to drive several hours away to come to this facility. She requested pain medication for dental pain. The dentition is showing no evidence for gingival inflammation, erosions. She also cannot take NSAIDs due to her chronic gastritis and anemia. I offered her a dental block and she refused this. She had stated that she wanted to see mental health however after being told she would not receive opiate pain medication she decided she did not want to be seen any longer. She is not actively suicidal and has care in her home town. She has not seen dental for this pain. She does have evidence of chronic anemia likely due to gastritis and her status post gastric bypass. - Diagnoses Provider Diagnoses: Depression, Chronic abdominal pain, Pain, dental, Anemia, Drug-seeking behavior Discharge - Sign-Out/Discharge Documenting (check all that apply): Discharge/Admit/Transfer - Discharge - Discharge Plan Condition: Stable Disposition: HOME Prescriptions: Penicillin VK 500 MG TAB(NF) [Penicillin VK 500 mg Tab] 500 mg PO QID #40 tab Patient Education Materials: Depression (ED), Toothache (ED) Referrals: No Primary Care Phys,NOPCP [Primary Care Provider] - Additional Instructions: See your doctor and dentist on arrival home in [place], [place]. Tylenol can be taken for dental discomfort. An antibiotic has been prescribed for your teeth. See your mental health provider or family doctor for referral to mental health agency or psychiatrist. - Billing Disposition and Condition Condition: STABLE Disposition: Home The documentation as recorded by the Stewart brady Tariq accurately reflects the service I personally performed and the decisions made by me, Moreno Otoole MD.
[2017-10-08 01:29] LABS: ABS Basophils 0.1 10^3/ul (0-0.2); ABS Eosinophils 0.1 10^3/ul (0-0.6); ABS Lymphocytes 1.7 10^3/ul (1.0-4.8); ABS Monocytes 0.5 10^3/ul (0-0.8); ABS Neutrophils 4.3 10^3/ul (1.5-7.7); ABS Nucleated RBC 0 10^3/ul; Eosinophil % 2.1 % (0-6); Lymphocyte % 24.7 % (25-47); Nucleated Red Blood Cells % 0; Tear Drop Cells 1+
== END 2017-10-08 00:15 | disposition home or self-care (01) ==
LOC: ED 22:28
DX: R10.9 Unspecified abdominal pain (principal); G89.29 Other chronic pain; F32.9 Major depressive disorder, single episode, unspecified; D64.9 Anemia, unspecified; K08.89 Other specified disorders of teeth and supporting structures; F17.210 Nicotine dependence, cigarettes, uncomplicated; Z72.89 Other problems related to lifestyle; Z88.6 Allergy status to analgesic agent
CPT/HCPCS: 36415; 80053; 80320; 80329; 84443; 84702; 85025; 85060; 99282; G0480

== ENCOUNTER 2017-10-30 09:15 | Emergency (ER) | payer MEDICARE ==
[2017-10-30] MEDS ORDERED: Ondansetron ODT TAB* 4 MG PO ONE (10:30)
[2017-10-30] MEDS ORDERED: Diazepam TAB(*) 5 MG PO ONE ×2 (10:30→13:04)
--- NOTE | 2017-10-30 10:38 | ED ---
Psychiatric Complaint - HPI Summary HPI Summary: This patient is a 31 year old F presenting to [facility] accompanied by her with a chief complaint of SI with a plan since last night 10/29/17. Denies sleeping at nights, denies drug, alcohol use. States her plan is to overdose on pills. - History Of Current Complaint Chief Complaint: EDMentalHealth Time Seen by Provider: 10/30/17 09:33 Hx Obtained From: Patient Onset/Duration: Sudden Onset, Lasting Hours Timing: Constant Severity Initially: Moderate Severity Currently: Moderate Character: Depressed, Anxious Aggravating Factor(s): Nothing Alleviating Factor(s): Nothing Associated Signs And Symptoms: Positive: Sleep Disturbance, Appetite Change Related History: Positive For: Prior Psychiatric Issues Has Suicidal: Reports: Thoughts, With A Plan, Has Prior Attempt(s) - Allergies/Home Medications Allergies/Adverse Reactions: Allergies Allergy/AdvReac Type Severity Reaction Status Date / Time alprazolam [From Xanax] Allergy Rash Verified 10/30/17 10:01 aripiprazole [From Abilify] Allergy Anaphylatic Verified 10/30/17 10:02 Shock aspirin Allergy Rash Verified 10/30/17 10:01 chlorpromazine Allergy Unknown Verified 10/30/17 10:01 [From Thorazine] Reaction Details diazepam [From Valium] Allergy Rash Verified 10/30/17 10:01 divalproex sodium Allergy Anaphylatic Verified 10/30/17 10:02 [From Depakote] Shock fentanyl Allergy Shortness Verified 10/30/17 10:01 of Breath haloperidol [From Haldol] Allergy Unknown Verified 10/30/17 10:01 Reaction Details quetiapine [From Seroquel] Allergy Anaphylatic Verified 10/30/17 10:02 Shock risperidone [From Risperdal] Allergy Swelling Verified 10/30/17 10:01 tramadol Allergy Anaphylatic Verified 10/30/17 10:02 Shock Home Medications: Home Medications Acetaminophen TAB* [Tylenol TAB*] 650 mg PO Q4H PRN 10/30/17 [History Confirmed 10/30/17] Gabapentin CAP(*) [Neurontin 300 CAP(*)] 300 mg PO BID 10/30/17 [History Confirmed 10/30/17] Gabapentin CAP(*) [Neurontin 300 CAP(*)] 900 mg PO BEDTIME 10/30/17 [History Confirmed 10/30/17] Hydrochlorothiazide TAB* [Hydrodiuril TAB*] 50 mg PO BID 10/30/17 [History Confirmed 10/30/17] Sertraline* [Zoloft*] 200 mg PO QAM 10/30/17 [History Confirmed 10/30/17] clonazePAM TAB(*) [KlonoPIN TAB(*)] 2 mg PO TID PRN 10/30/17 [History Confirmed 10/30/17] PMH/Surg Hx/FS Hx/Imm Hx Cardiovascular History: Reports: Hx Hypertension Sensory History: Denies: Hx Contacts or Glasses, Hx Hearing Aid Opthamlomology History: Denies: Hx Contacts or Glasses EENT History: Denies: Hx Deafness Psychiatric History: Reports: Hx Anxiety, Hx Eating Disorder - Anorexia & Bulimia, Hx Depression, Hx Inpatient Treatment, Hx Community Mental Health Tx, Hx Substance Abuse Infectious Disease History: No Infectious Disease History: Denies: Traveled Outside the [place] in Last 30 Days - Family History Known Family History: Positive: Cardiac Disease, Hypertension, Diabetes - Social History Alcohol Use: Rare Hx Substance Use: Yes Substance Use Type: Reports: Marijuana Hx Tobacco Use: Yes Smoking Status (MU): Heavy Every Day Tobacco Smoker Type: Cigarettes Review of Systems Positive: Fatigue, Other - anorexia. Negative: Fever, Chills Negative: Erythema Negative: Sore Throat Negative: Chest Pain Negative: Shortness Of Breath, Cough Negative: Abdominal Pain, Vomiting, Nausea Negative: dysuria, hematuria Negative: Myalgia, Edema Negative: Rash Neurological: Other - NEGATIVE: dizziness Positive: Anxious, Depressed, Other - SI with plan All Other Systems Reviewed And Are Negative: Yes Physical Exam - Summary Physical Exam Summary: Constitutional: Well-developed, Well-nourished, Alert. (-) Distressed Skin: Warm, Dry HENT: Normocephalic; Atraumatic Eyes: Conjunctiva normal Neck: Musculoskeletal ROM normal neck. (-) JVD, (-) Stridor, (-) Tracheal deviation Cardio: Rhythm regular, rate normal, Heart sounds normal; Intact distal pulses; The pedal pulses are 2+ and symmetric. Radial pulses are 2+ and symmetric. (-) Murmur Pulmonary/Chest wall: Effort normal. (-) Respiratory distress, (-) Wheezes, (-) Rales Abd: Soft, (-), epigastric tenderness, (-) Distension, (-) Guarding, (-) Rebound Musculoskeletal: (-) Edema Lymph: (-) Cervical adenopathy Neuro: Alert, Oriented x3 Psych: Mood and affect Normal Triage Information Reviewed: Yes Vital Signs On Initial Exam: Initial Vitals Temp Pulse Resp BP Pulse Ox 97.8 F 86 17 114/72 99 10/30/17 09:17 10/30/17 09:17 10/30/17 09:17 10/30/17 09:17 10/30/17 09:17 Vital Signs Reviewed: Yes Diagnostics - Vital Signs Vital Signs Temp Pulse Resp BP Pulse Ox 10/30/17 09:17 97.8 F 86 17 114/72 99 - Laboratory Result Diagrams: 10/30/17 10:51 10/30/17 10:51 Lab Statement: Any lab studies that have been ordered have been reviewed, and results considered in the medical decision making process. Re-Evaluation - Re-Evaluation First Eval Re-Evaluation Time: 11:40 Change: Unchanged Comment: PT endorses oral intake low due to depression, diarrhea. Second Eval Re-Evaluation Time: 12:31 Change: Unchanged Comment: Pt goes between SI, no SI. she "wants to ". Pt told psych party plan sales consultant John that she has no SI, wants a prescription to valium. Will not prescribe it as she has prior history of OD suicide attempt. Course/Dx - Course Course Of Treatment: Pt given valium, zofran, and klor-con liquid. - Differential Dx/Clinical Impression Provider Diagnosis: Anxiety Discharge - Sign-Out/Discharge Documenting (check all that apply): Patient Departure - DISCHARGE - Discharge Plan Condition: Stable Disposition: HOME Referrals: No Primary Care Phys,NOPCP [Primary Care Provider] - Additional Instructions: RETURN TO EMERGENCY DEPARTMENT FOR ANY CHANGING OR WORSENING SYMPTOMS. - Billing Disposition and Condition Condition: STABLE Disposition: Home
[2017-10-30 11:10] LABS: ABS Basophils 0.1 10^3/ul (0-0.2); ABS Eosinophils 0.2 10^3/ul (0-0.6); ABS Lymphocytes 1.6 10^3/ul (1.0-4.8); ABS Monocytes 0.4 10^3/ul (0-0.8); ABS Neutrophils 5.1 10^3/ul (1.5-7.7); ABS Nucleated RBC 0 10^3/ul; Eosinophil % 2.2 % (0-6); Hematocrit 27 % (35-47); Hemoglobin 8.5 g/dl (12.0-16.0); Lymphocyte % 21.5 % (25-47); Mean Corpuscular HGB Conc 31 g/dl (31-36); Mean Corpuscular Hemoglobin 19 pg (27-31); Mean Corpuscular Volume 61 fL (80-97); Mean Platelet Volume 8.4 um3 (7.4-10.4); Nucleated Red Blood Cells % 0; Platelet Count 203 10^3/ul (150-450); Red Cell Distribution Width 21 % (10.5-15); White Blood Count 7.4 10^3/ul (3.5-10.8)
[2017-10-30 11:25] LABS: EGFR Non-African American 85.5 (>60)
[2017-10-30] MEDS ORDERED: Potassium Chloride LIQUID* 20 MEQ PACKET PO ONE (11:37)
[2017-10-30] MEDS ORDERED: diPHENhydraMINE IV* 50 MG/ML 1 ml VIAL (BENADRYL) IM ONE (13:51)
[2017-10-30] MEDS ORDERED: Haloperidol INJ IV/IM* 5 MG/ML AMP IM ONE (13:51)
[2017-10-30 14:11] LABS: Urine Appearance Cloudy; Urine Blood Negative (Negative); Urine Color Yellow; Urine Ketones Negative (Negative); Urine Protein Negative (Negative); Urine Specific Gravity 1.017 (1.010-1.030); Urine Urobilinogen Negative (Negative)
[2017-10-30 14:26] VITALS: BP 0/0
== END 2017-10-30 14:23 | disposition home or self-care (01) ==
LOC: ED 09:15
DX: F32.9 Major depressive disorder, single episode, unspecified (principal); R53.83 Other fatigue; F17.210 Nicotine dependence, cigarettes, uncomplicated
CPT/HCPCS: 36415; 80053; 80307; 80320; 80329; 81003; 84443; 85025; 99285; A9270-GY; G0480; J1200; J1630

== ENCOUNTER 2017-11-13 18:14 | Emergency (ER) | payer MEDICARE ==
--- NOTE | 2017-11-13 18:48 | ED ---
Altered Mental Status - HPI Summary HPI Summary: This is scribe Chuy Langley documenting for attending Everette Willett M.D. Patient is a 31 y/o F w/ c/o hallucinations, visions, flashbacks, and voices onsetting a week ago and have been reported to be constant since. She reports she lost her psychiatrist 10 months ago and has not been able to secure treatment since because she, "has been blocked" by her former psychiatrist. She notes the presence of SI and HI, stating she would "kill everyone with a gun" and then herself. PMHx of PTSD, anxiety, bipolar disorder, and depression is reported by patient. On triage, pain is denied and nothing is noted to aggravate /alleviate Sx. Home medications and allergies noted. - History Of Current Complaint Chief Complaint: EDMentalHealth Stated Complaint: MHE/SUICIDAL Time Seen by Provider: 11/13/17 18:36 Hx Obtained From: Patient Onset/Duration: Still Present Timing: Lasting Weeks - onset reported to be a week ago Severity Currently: None - pain is denied on triage Aggravating Factor(s): Nothing Alleviating Factor(s): Nothing Has Suicidal: Thoughts, With A Plan - patient states she plans to, "kill everyone with a gun" and then herself Has Homicidal: Thoughts, With A Plan - patient states she plans to, "kill everyone with a gun" and then herself - Allergies/Home Medications Allergies/Adverse Reactions: Allergies Allergy/AdvReac Type Severity Reaction Status Date / Time aspirin Allergy Rash Verified 11/13/17 19:50 chlorpromazine Allergy Unknown Verified 11/13/17 19:50 [From Thorazine] Reaction Details divalproex sodium Allergy Anaphylatic Verified 11/13/17 19:50 [From Depakote] Shock fentanyl Allergy Shortness Verified 11/13/17 19:50 of Breath quetiapine [From Seroquel] Allergy Anaphylatic Verified 11/13/17 19:50 Shock risperidone [From Risperdal] Allergy Swelling Verified 11/13/17 19:50 tramadol Allergy Anaphylatic Verified 11/13/17 19:50 Shock PMH/Surg Hx/FS Hx/Imm Hx Cardiovascular History: Reports: Hx Hypertension Sensory History: Denies: Hx Contacts or Glasses, Hx Deafness, Hx Hearing Aid Opthamlomology History: Denies: Hx Contacts or Glasses Psychiatric History: Reports: Hx Anxiety, Hx Eating Disorder - Anorexia & Bulimia, Hx Depression, Hx Inpatient Treatment, Hx Community Mental Health Tx, Hx of Violent Episodes Against Others, Hx Substance Abuse Infectious Disease History: No Infectious Disease History: Denies: Traveled Outside the [place] in Last 30 Days - Family History Known Family History: Positive: Cardiac Disease, Hypertension, Diabetes - Social History Alcohol Use: Rare Hx Substance Use: Yes Substance Use Type: Reports: Marijuana Hx Tobacco Use: Yes Smoking Status (MU): Heavy Every Day Tobacco Smoker Type: Cigarettes Review of Systems Negative: Fever Positive: Other - altered mental status, visual and auditory hallucinations, flashblacks All Other Systems Reviewed And Are Negative: Yes Physical Exam - Summary Physical Exam Summary: VITAL SIGNS: Reviewed. GENERAL: Patient is a well-developed and nourished female who is lying comfortable in the stretcher. Patient is not in any acute respiratory distress. HEAD AND FACE: No signs of trauma. No ecchymosis, hematomas or skull depressions. No sinus tenderness. EYES: PERRLA, EOMI x 2, No injected conjunctiva, no nystagmus. EARS: Hearing grossly intact. Ear canals and tympanic membranes are within normal limits. MOUTH: Oropharynx within normal limits. NECK: Supple, trachea is midline, no adenopathy, no JVD, no carotid bruit, no c- spine tenderness, neck with full ROM. CHEST: Symmetric, no tenderness at palpation LUNGS: Clear to auscultation bilaterally. No wheezing or crackles. CVS: Regular rate and rhythm, S1 and S2 present, no murmurs or gallops appreciated. ABDOMEN: Soft, non-tender. No signs of distention. No rebound no guarding, and no masses palpated. Bowel sounds are normal. EXTREMITIES: FROM in all major joints, no edema, no cyanosis or clubbing. NEURO: Alert and oriented x 3. No acute neurological deficits. Speech is normal and follows commands. SKIN: Dry and warm PSYCH: Patient has HI and SI thoughts and a plan. She is hyper-verbal, tangential, and seems anxious. Triage Information Reviewed: Yes Vital Signs On Initial Exam: Initial Vitals Temp Pulse Resp BP Pulse Ox 98.0 F 90 17 130/100 99 11/13/17 18:23 11/13/17 18:23 11/13/17 18:23 11/13/17 18:23 11/13/17 18:23 Vital Signs Reviewed: Yes Diagnostics - Vital Signs Vital Signs Temp Pulse Resp BP Pulse Ox 11/13/17 18:23 98.0 F 90 17 130/100 99 - Laboratory Result Diagrams: 11/13/17 19:11 11/13/17 19:11 Lab Statement: Any lab studies that have been ordered have been reviewed, and results considered in the medical decision making process. Altered Mental Statu Course/Dx - Course Assessment/Plan: This patient is a 31-year-old female who presents to the emergency room with family members with a chief complaint of having anxiety, visual hallucinations, suicidal or homicidal ideations. Patient has past medical history significant for cocaine does not disorder, schizoaffective disorder, depression PTSD and anxiety as well as bipolar disorder. She reports that she has been without any medications for the last 8 months. Patient reports that her psychiatrist in [place] would not see her any longer. She also reports that she has been banned from the [facility] and she is unable to get care there. This results without any significant abnormality except for the chronic anemia. The patient is medically cleared. The patient is awaiting for mental health ablation. Patient was signed out to Dr. Ireland at shift change. - Diagnoses Provider Diagnoses: Psychosis - Provider Notifications Instructed by Provider To: Other - 1941 -- MHE Tere Perera discussed care of patient with Dr. Willett. Patient is asking for valium. 1957 -- Tere Perera discussed care of patient again. Patient claims she is having a mental breakdown. Patient will be sent to [facility] for MHE. Discharge - Sign-Out/Discharge Documenting (check all that apply): Sign-Out Patient Signing out patient TO: Malcolm Ireland Receiving patient FROM: Everette Willett - Discharge Plan Referrals: No Primary Care Phys,NOPCP [Primary Care Provider] -
[2017-11-13 19:24] LABS: Hematocrit 28 % (35-47); Hemoglobin 8.8 g/dl (12.0-16.0); Mean Corpuscular HGB Conc 31 g/dl (31-36); Mean Corpuscular Hemoglobin 19 pg (27-31); Mean Corpuscular Volume 62 fL (80-97); Mean Platelet Volume 8.2 um3 (7.4-10.4); Platelet Count 332 10^3/ul (150-450); Red Blood Count 4.56 10^6/ul (4.00-5.40); Red Cell Distribution Width 22 % (10.5-15); White Blood Count 8.6 10^3/ul (3.5-10.8)
[2017-11-13 19:43] LABS: EGFR Non-African American 124.5 (>60)
[2017-11-13 19:50] LABS: ABS Basophils 0.1 10^3/ul (0-0.2); ABS Eosinophils 0.1 10^3/ul (0-0.6); ABS Lymphocytes 1.9 10^3/ul (1.0-4.8); ABS Monocytes 0.4 10^3/ul (0-0.8); ABS Neutrophils 6.1 10^3/ul (1.5-7.7); ABS Nucleated RBC 0 10^3/ul
[2017-11-13 19:57] LABS: ABS Basophils 0 10^3/ul (0-0.2); ABS Neutrophils 5.7 10^3/ul (1.5-7.7); Monocytes % 1 % (0-7); Tear Drop Cells 1+
[2017-11-13] MEDS ORDERED: Haloperidol TAB* 5 MG PO ONE (19:59)
[2017-11-13] MEDS ORDERED: diPHENhydraMINE PO* 50 MG PO ONE (19:59)
[2017-11-13 21:29] LABS: Urine Appearance Cloudy; Urine Blood Negative (Negative); Urine Color Yellow; Urine Ketones Negative (Negative); Urine Protein Negative (Negative); Urine Specific Gravity 1.017 (1.010-1.030); Urine Urobilinogen Negative (Negative)
--- NOTE | 2017-11-13 22:17 | ED ---
Progress - Consult/PCP Time Called: 20:30 Course/Dx - Diagnoses Provider Diagnoses: Psychosis - Provider Notifications Instructed by Provider To: Other - 1941 -- MHE Tere Perera discussed care of patient with Dr. Willett. Patient is asking for valium. 1957 -- Tere Perera discussed care of patient again. Patient claims she is having a mental breakdown. Patient will be sent to [facility] for MHE. Discharge - Sign-Out/Discharge Documenting (check all that apply): Sign-Out Patient Signing out patient TO: Mukesh Keita - mhe, dispo - Discharge Plan Referrals: No Primary Care Phys,NOPCP [Primary Care Provider] -
[2017-11-13] MEDS ORDERED: LORazepam TAB(*) 1 MG PO ONE (23:29)
[2017-11-14] MEDS ORDERED: Mouth Piece, Nicotine* 1 EACH CARTRIDGE INH PRN (01:37)
[2017-11-14] MEDS: Nicotine Inhaler* 10 MG AMP INH ONE ×2 (01:40→06:53)
[2017-11-14] MEDS ORDERED: Mouth Piece, Nicotine* 1 EACH CARTRIDGE ONE (01:41)
--- NOTE | 2017-11-14 07:20 | ED ---
Progress - Progress Note Progress Note: Pt signed out from Dr. MCCARTHY pending MHE. This is scribe Ed Aissatou documenting for attending Mukesh Keita MD. - Consult/PCP Time Called: 20:30 Course/Dx - Diagnoses Provider Diagnoses: Psychosis - Provider Notifications Instructed by Provider To: Other - 1941 -- M[facility] Tere Perera discussed care of patient with Dr. Willett. Patient is asking for valium. 1957 -- Tere Perera discussed care of patient again. Patient claims she is having a mental breakdown. Patient will be sent to [facility] for MHE. Discharge - Discharge Plan Referrals: No Primary Care Phys,NOPCP [Primary Care Provider] -
--- NOTE | 2017-11-14 07:56 | PN ---
ED Flex Patient Progress Note Date of Service: 11/13/17 Subjective: This is a 31 year-old F who is pending admission to [facility] / transfer to another psychiatric facility / discharge to home / or being observed secondary to SI, HI, and hallucinations. Pt. examined in room F1 around 0730. She is resting comfortably and offers no complaints. Objective: Vitals: Most recent vital signs documented below. General NAD Laboratory: Current laboratory results documented below. Assessment: Pending MHE Plan: Pending psychiatric or medical consultation to observe / transfer / admit / discharge will follow up daily . Vital Signs Temp Pulse Resp BP Pulse Ox 97.3 F 96 18 103/70 100 11/13/17 21:41 11/13/17 21:41 11/13/17 23:34 11/13/17 21:41 11/13/17 21:41 Lab Results - Entire Visit 11/13/17 11/13/17 11/13/17 20:00 20:00 19:11 WBC RBC Hgb Hct MCV MCH MCHC RDW Plt Count MPV Neut % (Auto) Lymph % (Auto) [place] % (Auto) Eos % (Auto) Baso % (Auto) Absolute Neuts (auto) Absolute Lymphs (auto) Absolute Monos (auto) Absolute Eos (auto) Absolute Basos (auto) Absolute Nucleated RBC Neutrophils % Lymphocytes % Monocytes % Eosinophils % Basophils % Nucleated RBC % Abs Neuts (Manual) Abs Lymphs (Manual) Abs Monocytes (Manual) Absolute Eos (Manual) Abs Basophils (Manual) Normal RBC Morphology Polychromasia Hypochromasia Anisocytosis Microcytosis Tear Drop Cells Elliptocytes Sodium 137 Potassium 3.3 L Chloride 103 Carbon Dioxide 26 Anion Gap 8 BUN 8 Creatinine 0.57 Est GFR ( Amer) 150.7 Est GFR (Non-Af Amer) 124.5 BUN/Creatinine Ratio 14.0 Glucose 150 H Calcium 9.0 Total Bilirubin 0.30 AST 15 ALT 14 Alkaline Phosphatase 74 Total Protein 7.2 Albumin 3.8 Globulin 3.4 Albumin/Globulin Ratio 1.1 TSH 1.33 Urine Color Yellow Urine Appearance Cloudy Urine pH 6.0 Ur Specific [place] 1.017 Urine Protein Negative Urine Ketones Negative Urine Blood Negative Urine Nitrate Negative Urine Bilirubin Negative Urine Urobilinogen Negative Ur Leukocyte Esterase Negative Urine Glucose Negative Salicylates < 2.50 Urine Opiates Screen None detected Acetaminophen < 15 Ur Barbiturates Screen Presumptive positive A Ur Phencyclidine Scrn None detected Ur Amphetamines Screen None detected U Benzodiazepines Scrn Presumptive positive A Urine Cocaine Screen None detected U Cannabinoids Screen Presumptive positive A Serum Alcohol < 10 11/13/17 19:11 WBC 8.6 RBC 4.56 Hgb 8.8 L Hct 28 L MCV 62 L MCH 19 L MCHC 31 RDW 22 H Plt Count 332 MPV 8.2 Neut % (Auto) Not Reportable Lymph % (Auto) Not Reportable [place] % (Auto) Not Reportable Eos % (Auto) Not Reportable Baso % (Auto) 1.4 Absolute Neuts (auto) 6.1 Absolute Lymphs (auto) 1.9 Absolute Monos (auto) 0.4 Absolute Eos (auto) 0.1 Absolute Basos (auto) 0.1 Absolute Nucleated RBC 0 Neutrophils % 66 Lymphocytes % 29 Monocytes % 1 Eosinophils % 4 Basophils % 0 Nucleated RBC % Not Reportable Abs Neuts (Manual) 5.7 Abs Lymphs (Manual) 2.5 Abs Monocytes (Manual) 0.1 Absolute Eos (Manual) 0.3 Abs Basophils (Manual) 0 Normal RBC Morphology Not Reportable Polychromasia 1+ Hypochromasia 2+ Anisocytosis 3+ Microcytosis 2+ Tear Drop Cells 1+ Elliptocytes 2+ Sodium Potassium Chloride Carbon Dioxide Anion Gap BUN Creatinine Est GFR ( Amer) Est GFR (Non-Af Amer) BUN/Creatinine Ratio Glucose Calcium Total Bilirubin AST ALT Alkaline Phosphatase Total Protein Albumin Globulin Albumin/Globulin Ratio TSH Urine Color Urine Appearance Urine pH Ur Specific [place] Urine Protein Urine Ketones Urine Blood Urine Nitrate Urine Bilirubin Urine Urobilinogen Ur Leukocyte Esterase Urine Glucose Salicylates Urine Opiates Screen Acetaminophen Ur Barbiturates Screen Ur Phencyclidine Scrn Ur Amphetamines Screen U Benzodiazepines Scrn Urine Cocaine Screen U Cannabinoids Screen Serum Alcohol
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
[2017-11-14] MEDS ORDERED: Acetaminophen TAB* 325 MG PO PRN (16:28)
[2017-11-14] MEDS: Hydrochlorothiazide TAB* 25 MG PO SCH ×2 (16:42→21:47)
[2017-11-14] MEDS ORDERED: Sertraline* 100 MG TAB PO SCH (17:00)
[2017-11-14] MEDS ORDERED: clonazePAM TAB(*) 1 MG PO SCH ×2 (17:00→21:00)
[2017-11-14] MEDS ORDERED: Gabapentin CAP(*) 300 MG PO SCH (21:00)
[2017-11-14 22:38] VITALS: BP 139/88
[2017-11-15] MEDS ORDERED: Gabapentin CAP(*) 300 MG PO SCH (09:00)
== END 2017-11-14 23:12 ==
LOC: ED 18:14
DX: F29 Unspecified psychosis not due to a substance or known physiological condition (principal); F25.9 Schizoaffective disorder, unspecified; F43.10 Post-traumatic stress disorder, unspecified; F41.9 Anxiety disorder, unspecified; F31.9 Bipolar disorder, unspecified; Z88.6 Allergy status to analgesic agent; Z88.8 Allergy status to other drugs, medicaments and biological substances
CPT/HCPCS: 36415; 80053; 80307; 80320; 80329; 81003; 84443; 85025; 85060; 93005; 99285; A9270-GY; G0480

== ENCOUNTER 2018-11-22 19:56 | Inpatient (IN) | payer MEDICARE, OTHER ==
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
[2018-11-22 20:48] LABS: Urine Appearance Clear; Urine Bacteria Absent (Absent); Urine Bilirubin Negative (Negative); Urine Blood 2+ (Negative); Urine Color Amber; Urine Glucose Negative (Negative); Urine Ketones Trace (Negative); Urine Nitrite Negative (Negative); Urine Protein 1+(30 mg/dL) (Negative); Urine Red Blood Cell 2+(6-10/hpf) (Absent); Urine Specific Gravity 1.024 (1.010-1.030); Urine Squamous Epithelial Cell Present (Absent); Urine Urobilinogen Negative (Negative); Urine White Blood Cell Trace(0-5/hpf) (Absent)
[2018-11-22 20:57] LABS: Hematocrit 31 % (35-47); Hemoglobin 9.7 g/dL (12.0-16.0); Mean Corpuscular HGB Conc 31 g/dL (31-36); Mean Corpuscular Hemoglobin 21 pg (27-31); Mean Corpuscular Volume 68 fL (80-97); Mean Platelet Volume 8.3 fL (7.4-10.4); Platelet Count 264 10^3/uL (150-450); Red Blood Count 4.56 10^6 /uL (3.70-4.87); Red Cell Distribution Width 24 % (10-15); White Blood Count 6.2 10^3/uL (3.5-10.8)
[2018-11-22 20:57] LABS: Urine Benzodiazepine Screen Presumptive Positive (None Detect); Urine Opiates Screen None Detected (None Detect)
[2018-11-22] MEDS ORDERED: clonazePAM TAB(*) 1 MG PO ONE (21:04)
[2018-11-22 21:08] LABS: ALT 15 U/L (7-52); AST 19 U/L (13-39); Albumin 4.3 g/dL (3.2-5.2); Albumin/Globulin Ratio 1.4 (1-3); Alkaline Phosphatase 62 U/L (34-104); Anion Gap 9 mmol/L (2-11); BUN/Creatinine Ratio 15.5 (8-20); Blood Urea Nitrogen 9 mg/dL (6-24); CO2 Carbon Dioxide 27 mmol/L (22-32); Calcium 9.4 mg/dL (8.6-10.3); Chloride 103 mmol/L (101-111); EGFR African American 146.7 (>60); EGFR Non-African American 121.3 (>60); Glucose 96 mg/dL (70-100); Potassium 2.8 mmol/L (3.5-5.0); Sodium 139 mmol/L (135-145); Total Protein 7.3 g/dL (6.4-8.9)
[2018-11-22 21:15] LABS: Acetaminophen < 15 mcg/mL; Alcohol < 10 mg/dL (<10); HCG Pregnancy < 0.60 mIU/mL; Salicylate < 2.50 mg/dL (<30)
[2018-11-22 21:17] LABS: ABS Basophils 0.1 10^3/ul (0-0.2); ABS Eosinophils 0.2 10^3/ul (0-0.6); ABS Monocytes 0.4 10^3/ul (0-0.8); ABS Neutrophils 3.6 10^3/ul (1.5-7.7); Eosinophil % 3.3 %; Lymphocyte % 31.6 %; Microcytosis 2+
[2018-11-22 21:18] LABS: Tear Drop Cells 1+
[2018-11-22 21:29] LABS: TSH (Thyroid Stimulating Horm) 2.04 mcIU/mL (0.34-5.60)
[2018-11-22] MEDS ORDERED: Potassium Chlor TAB* 20 MEQ TAB.ER PO ONE (21:36)
[2018-11-22] MEDS ORDERED: OLANzapine TAB* 10 MG PO ONE (23:31)
[2018-11-23] MEDS: clonazePAM TAB(*) 1 MG PO SCH ×4 (08:44→22:05)
[2018-11-23] MEDS: Hydrochlorothiazide TAB* 25 MG PO SCH (09:35)
[2018-11-23] MEDS: Sertraline* 100 MG TAB PO SCH (09:57)
[2018-11-23] MEDS: Nystatin CREAM* 15 GM TUBE TOPICAL SCH (09:58)
[2018-11-23] MEDS: Multivitamins/Minerals TAB PO SCH (09:58)
[2018-11-23] MEDS: Pantoprazole TAB * 40 MG TAB PO SCH (09:58)
[2018-11-23] MEDS: Triamcinolone 0.5% OINT * 15 GM TUBE TOPICAL SCH (09:58)
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
[2018-11-23] MEDS: Potassium Chlor TAB* 20 MEQ TAB.ER PO SCH ×2 (19:05→22:05)
[2018-11-24] MEDS ORDERED: ARIPiprazole TAB* 15 MG PO SCH (09:00)
[2018-11-24] MEDS ORDERED: Paliperidone ER TAB* 6 MG TAB.ER ONE (12:25)
[2018-11-24] MEDS: clonazePAM TAB(*) 1 MG PO SCH ×2 (12:27→22:14)
[2018-11-24] MEDS: Potassium Chlor TAB* 20 MEQ TAB.ER PO SCH ×2 (12:27→22:14)
[2018-11-24] MEDS: Sertraline* 100 MG TAB PO SCH (12:27)
[2018-11-24] MEDS: Paliperidone ER TAB* 6 MG TAB.ER PO SCH (12:28)
[2018-11-24] MEDS: Pantoprazole TAB * 40 MG TAB PO SCH (12:28)
[2018-11-24] MEDS: Multivitamins/Minerals TAB PO SCH (12:28)
[2018-11-24] MEDS: Hydrochlorothiazide TAB* 25 MG PO SCH (12:30)
[2018-11-24] MEDS: Triamcinolone 0.5% OINT * 15 GM TUBE TOPICAL SCH (12:36)
[2018-11-24] MEDS: Nystatin CREAM* 15 GM TUBE TOPICAL SCH (12:36)
--- NOTE | 2018-11-24 12:40 | PN ---
Subjective - Subjective Date of Service: 11/24/18 Service Type: 43397 Hosp care 25 min moderate complexity Subjective: Patient is lying in bed awake upon approach. She is guarded with evasive eye contact. She states "I'm stuck" in regards to mood and asks for any medication for AH she is experiencing. She is seclusive to room, despite staff attempts to engage her. She laughs incongruently and is tangential during conversation. I inquire about medication that is historically effective and she states "Do I stick to the plan, ever?!" Objective - General Observations Appearance: Malodorous Stature: Overweight Posture: Slumped Eye Contact: Intermittent Behavior/Activity: Peculiar - Interaction Observations Attitude Towards Examiner: Evasive, Mistrustful Stated Mood: Elevated, Irritable Affect: Incongruent Speech Pattern/Tone: Pressured, Loud Volume Thought Process: Filght of Ideas, Racing Perception: WNL Thought Content: Paranoid Thought Process: Lethality: Paranoid Ideation Hallucination Type: Auditory Delusion Type: Persecution - Cognitive Function Orientation: A&O x 4 Level of Consciousness: Alert Cognition: Impaired Attention/Concentration Estimated Intelligence: Normal Insight: Difficulty Acknowledging Presence of Psyciatric Problems Judgment Within Normal Limits: No Ability to Make Reasonable Decisions: Serverely Impaired - Medication Compliance Cooperative with Inpatient Medication Regimen: No - Group Participation Participates in Group Activities: No Assessment - Assessment Merits Inpatient Hospitalization: For Immediate Safety, For Stabilization Inpatient DSM-V Dx: F25.0 Clinical Impression: 32yo female with history of schizoaffective d/o and polysubstance use who presented to ED with c/o AH and suicidal ideation of burning herself in her home. She merits hospitalization for immediate safety and stabilization. Plan - Plan Treatment Plan: Name: JESSICA BARRAGAN Birthdate: 1985 [id number] continue acute intensive psychiatric treatment. change aripiprazole to paliperidone. consider Invega Sustenna per patient consent. add Bactrim for UTI. Continued Medication Management: Start Medication Medications: Current Medications Acetaminophen (Tylenol Tab*) 650 mg PO Q4H PRN PRN Reason: PAIN; OR TEMP >101 Al Hydrox/Mg Hydrox/Simethicone (Maalox Plus*) 30 ml PO Q4H PRN PRN Reason: INDIGESTION Clonazepam (Klonopin Tab(*)) 1 mg PO BID [facility] Last Admin: 11/24/18 12:27 Dose: 1 mg Hydrochlorothiazide (Hydrodiuril Tab*) 50 mg PO DAILY [facility] Last Admin: 11/24/18 12:30 Dose: Not Given Hydroxyzine HCl (Atarax Tab*) 50 mg PO DAILY PRN PRN Reason: ANXIETY Multivitamins/Minerals (Theragran/Minerals Tab*) 1 tab PO DAILY [facility] Last Admin: 11/24/18 12:28 Dose: 1 tab Nystatin (Nystatin Cream*) 1 applic TOPICAL DAILY [facility] Last Admin: 11/24/18 12:36 Dose: Not Given Paliperidone (Invega Er Tab*) 6 mg PO DAILY [facility] Last Admin: 11/24/18 12:28 Dose: 6 mg Pantoprazole Sodium (Protonix Tab*) 40 mg PO DAILY WITH MEAL [facility] Last Admin: 11/24/18 12:28 Dose: 40 mg Potassium Chloride (Klor Con Er Tab*) 20 meq PO BID [facility] Last Admin: 11/24/18 12:27 Dose: 20 meq Sertraline HCl (Zoloft*) 200 mg PO DAILY [facility] Last Admin: 11/24/18 12:27 Dose: 200 mg Triamcinolone Acetonide (Triamcinolone 0.5% Oint *) 1 applic TOPICAL DAILY [facility] Last Admin: 11/24/18 12:36 Dose: Not Given Trimethoprim/Sulfamethoxazole (Bactrim Ds 800/160 Tab*) 1 tab PO BID [facility] - Discharge Plan Discharge Plan: Inpatient Hospitalization
[2018-11-24] MEDS: Sulfamethox/Trimethoprim DS 800/160* TAB PO SCH ×2 (15:44→22:14)
[2018-11-25 07:36] LABS: BUN/Creatinine Ratio 10.2 (8-20); Calcium 8.9 mg/dL (8.6-10.3); EGFR African American 178.2 (>60); EGFR Non-African American 147.3 (>60); Potassium 3.3 mmol/L (3.5-5.0)
[2018-11-25 07:37] LABS: HDL Cholesterol 33.6 mg/dL
[2018-11-25] MEDS: Sertraline* 100 MG TAB PO SCH (10:03)
[2018-11-25] MEDS: Multivitamins/Minerals TAB PO SCH (10:04)
[2018-11-25] MEDS: Potassium Chlor TAB* 20 MEQ TAB.ER PO SCH ×2 (10:04→21:28)
[2018-11-25] MEDS: Pantoprazole TAB * 40 MG TAB PO SCH (10:04)
[2018-11-25] MEDS: Hydrochlorothiazide TAB* 25 MG PO SCH (10:04)
[2018-11-25] MEDS: Sulfamethox/Trimethoprim DS 800/160* TAB PO SCH ×2 (10:05→21:29)
[2018-11-25] MEDS: clonazePAM TAB(*) 1 MG PO SCH ×2 (10:05→21:28)
[2018-11-25] MEDS: Nystatin CREAM* 15 GM TUBE TOPICAL SCH (10:06)
[2018-11-25] MEDS: Paliperidone ER TAB* 6 MG TAB.ER PO SCH (10:06)
[2018-11-25] MEDS: Triamcinolone 0.5% OINT * 15 GM TUBE TOPICAL SCH (10:06)
--- NOTE | 2018-11-25 14:36 | PN ---
Subjective - Subjective Date of Service: 11/25/18 Service Type: [id number] Hosp care 25 min moderate complexity Subjective: Patient is sitting in milieu with a bizarre pose at a table. She is disheveled and wearing a blanket tucked into her pants at times. Patient is more conversational than yesterday, but continues to laugh incongruently and attend to internal stimuli. She reports being at "a crossroads of my life." He states that her patients from [facility] "dropped her." She states that she wants to live on [facility] in an assisted living facility. She reports that her grandmother does not feel safe because "I have too many emotions that she can't handle." Objective - General Observations Appearance: Malodorous Stature: Overweight Posture: Tense, Atypical Eye Contact: Avoidant Behavior/Activity: Peculiar - Interaction Observations Attitude Towards Examiner: Cooperative Stated Mood: Elevated, Expansive Affect: Full Speech Pattern/Tone: Normal Volume, Rambling, Excessive Thought Process: Filght of Ideas Perception: WNL Thought Content: Paranoid Hallucination Type: Auditory, Visual Delusion Type: None - Cognitive Function Orientation: Person, Time, Situation Level of Consciousness: Alert Cognition: Impaired Attention/Concentration Estimated Intelligence: Normal Insight: Difficulty Acknowledging Presence of Psyciatric Problems Judgment Within Normal Limits: No Ability to Make Reasonable Decisions: Serverely Impaired - Medication Compliance Cooperative with Inpatient Medication Regimen: Yes - Group Participation Participates in Group Activities: No Assessment - Assessment Merits Inpatient Hospitalization: For Immediate Safety, For Stabilization Inpatient DSM-V Dx: F25.0 Clinical Impression: 32yo female with history of schizoaffective d/o and polysubstance use who presented to ED with c/o AH and suicidal ideation of burning herself in her home. She merits hospitalization for immediate safety and stabilization. Plan - Plan Treatment Plan: Name: JESSICA BARRAGAN Birthdate: 1985 [id number] continue acute intensive psychiatric treatment. increase paliperidone. consider Invega Sustenna per patient consent. add olanzapine 5mg daily prn agitation. continue other medications, as ordered. Identify current providers and obtain collateral. Continued Medication Management: Start Medication Medications: Current Medications Acetaminophen (Tylenol Tab*) 650 mg PO Q4H PRN PRN Reason: PAIN; OR TEMP >101 Al Hydrox/Mg Hydrox/Simethicone (Maalox Plus*) 30 ml PO Q4H PRN PRN Reason: INDIGESTION Clonazepam (Klonopin Tab(*)) 1 mg PO BID [facility] Last Admin: 11/25/18 10:05 Dose: 1 mg Hydrochlorothiazide (Hydrodiuril Tab*) 50 mg PO DAILY [facility] Last Admin: 11/25/18 10:04 Dose: 50 mg Hydroxyzine HCl (Atarax Tab*) 50 mg PO DAILY PRN PRN Reason: ANXIETY Multivitamins/Minerals (Theragran/Minerals Tab*) 1 tab PO DAILY [facility] Last Admin: 11/25/18 10:04 Dose: 1 tab Nystatin (Nystatin Cream*) 1 applic TOPICAL DAILY [facility] Last Admin: 11/25/18 10:06 Dose: Not Given Olanzapine (Zyprexa * Tab Odt) 5 mg PO DAILY PRN PRN Reason: AGITATION Paliperidone (Invega Er Tab*) 9 mg PO DAILY [facility] Pantoprazole Sodium (Protonix Tab*) 40 mg PO DAILY WITH MEAL [facility] Last Admin: 11/25/18 10:04 Dose: 40 mg Potassium Chloride (Klor Con Er Tab*) 20 meq PO BID [facility] Last Admin: 11/25/18 10:04 Dose: 20 meq Sertraline HCl (Zoloft*) 200 mg PO DAILY [facility] Last Admin: 11/25/18 10:03 Dose: 200 mg Triamcinolone Acetonide (Triamcinolone 0.5% Oint *) 1 applic TOPICAL DAILY [facility] Last Admin: 11/25/18 10:06 Dose: Not Given Trimethoprim/Sulfamethoxazole (Bactrim Ds 800/160 Tab*) 1 tab PO BID [facility] Last Admin: 11/25/18 10:05 Dose: 1 tab - Discharge Plan Discharge Plan: Inpatient Hospitalization
[2018-11-25] MEDS: OLANzapine TAB*ODT* 5 MG PO PRN (16:36)
[2018-11-25] MEDS: hydrOXYzine HCL TAB* 50 MG PO PRN (16:36)
[2018-11-25] MEDS ORDERED: LORazepam TAB(*) 1 MG ONE (16:47)
[2018-11-25] MEDS ORDERED: LORazepam TAB(*) 1 MG PO ONE (18:00)
[2018-11-26] MEDS ORDERED: LORazepam TAB(*) 1 MG PO PRN (09:04)
[2018-11-26] MEDS: clonazePAM TAB(*) 1 MG PO SCH ×3 (10:41→21:33)
[2018-11-26] MEDS: Paliperidone ER TAB* 9 MG TAB.ER PO SCH ×2 (10:43→12:11)
[2018-11-26] MEDS: Nystatin CREAM* 15 GM TUBE TOPICAL SCH (10:50)
[2018-11-26] MEDS: Triamcinolone 0.5% OINT * 15 GM TUBE TOPICAL SCH (10:50)
[2018-11-26] MEDS: Multivitamins/Minerals TAB PO SCH (10:50)
[2018-11-26] MEDS ORDERED: LORazepam INJ* 2 MG/ML 1 ML VIAL IM ONE (11:33)
[2018-11-26] MEDS ORDERED: Lorazepam PYXIS KEY PRN (11:33)
[2018-11-26] MEDS: Sertraline* 100 MG TAB PO SCH (12:11)
[2018-11-26] MEDS: Sulfamethox/Trimethoprim DS 800/160* TAB PO SCH ×2 (12:12→21:33)
[2018-11-26] MEDS: Pantoprazole TAB * 40 MG TAB PO SCH (12:12)
[2018-11-26] MEDS: Hydrochlorothiazide TAB* 25 MG PO SCH (12:12)
[2018-11-26] MEDS: Potassium Chlor TAB* 20 MEQ TAB.ER PO SCH ×2 (12:12→21:33)
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
[2018-11-27] MEDS: clonazePAM TAB(*) 1 MG PO SCH ×2 (08:58→22:21)
[2018-11-27] MEDS: Triamcinolone 0.5% OINT * 15 GM TUBE TOPICAL SCH (09:00)
[2018-11-27] MEDS: Paliperidone ER TAB* 9 MG TAB.ER PO SCH (09:00)
[2018-11-27] MEDS: Nystatin CREAM* 15 GM TUBE TOPICAL SCH (09:01)
[2018-11-27] MEDS: Multivitamins/Minerals TAB PO SCH (09:01)
[2018-11-27] MEDS: OLANzapine TAB*ODT* 5 MG PO PRN (09:10)
[2018-11-27] MEDS: Hydrochlorothiazide TAB* 25 MG PO SCH (09:30)
[2018-11-27] MEDS: Sulfamethox/Trimethoprim DS 800/160* TAB PO SCH ×2 (09:30→22:21)
[2018-11-27] MEDS: Potassium Chlor TAB* 20 MEQ TAB.ER PO SCH ×2 (09:30→22:21)
[2018-11-27] MEDS: Pantoprazole TAB * 40 MG TAB PO SCH (09:30)
[2018-11-27] MEDS: Sertraline* 100 MG TAB PO SCH (09:30)
--- NOTE | 2018-11-27 13:13 | PN ---
Subjective - Subjective Date of Service: 11/27/18 Service Type: [id number] Hosp care 25 min moderate complexity Subjective: Patient lying on floor of her bathroom, responding to verbal stimuli and making delusional statements. She states "I'm smoking crack and killing babies. " She makes self-deprecatory statements and refers to sports writer as her mother. She is tearful at times, otherwise has a blunted affect. Staff has prompted ADLs, which she does while wearing clothing. Patient is compliant with medications with much prompting. Objective - General Observations Appearance: Disheveled, Unkempt Stature: Overweight Posture: Tense Eye Contact: Avoidant Behavior/Activity: Peculiar - Interaction Observations Attitude Towards Examiner: Anxious, Confused, Mistrustful Stated Mood: Expansive Affect: Restricted Speech Pattern/Tone: Rambling, Quiet Volume Thought Process: Disorganized, Filght of Ideas Perception: Derealization Thought Content: Paranoid, Self-Deprecatory Thought Process: Lethality: Paranoid Ideation Hallucination Type: Auditory, Visual Delusion Type: Denies - Cognitive Function Orientation: A&O x 4 Level of Consciousness: Alert Cognition: Impaired Attention/Concentration Estimated Intelligence: Normal Insight: Difficulty Acknowledging Presence of Psyciatric Problems Judgment Within Normal Limits: No Ability to Make Reasonable Decisions: Serverely Impaired - Medication Compliance Cooperative with Inpatient Medication Regimen: Partial - Group Participation Participates in Group Activities: No Assessment - Assessment Merits Inpatient Hospitalization: For Immediate Safety, For Stabilization Inpatient DSM-V Dx: F25.0 Clinical Impression: 32yo female with history of schizoaffective d/o and polysubstance use who presented to ED with c/o AH and suicidal ideation of burning herself in her home. She continues to present as grossly disorganized and unable to care for herself. She merits hospitalization for immediate safety and stabilization. Plan - Plan Treatment Plan: Name: JESSICA BARRAGAN Birthdate: 1985 [id number] continue acute intensive psychiatric treatment. continue paliperidone. consider Invega Sustenna per patient consent. continue other medications, as ordered. obtain CT brain when pt able to tolerate Medications: Current Medications Acetaminophen (Tylenol Tab*) 650 mg PO Q4H PRN PRN Reason: PAIN; OR TEMP >101 Al Hydrox/Mg Hydrox/Simethicone (Maalox Plus*) 30 ml PO Q4H PRN PRN Reason: INDIGESTION Clonazepam (Klonopin Tab(*)) 1 mg PO BID [facility] Last Admin: 11/27/18 08:58 Dose: 1 mg Hydrochlorothiazide (Hydrodiuril Tab*) 50 mg PO DAILY [facility] Last Admin: 11/26/18 12:12 Dose: 50 mg Hydroxyzine HCl (Atarax Tab*) 50 mg PO DAILY PRN PRN Reason: ANXIETY Last Admin: 11/25/18 16:36 Dose: 50 mg Lorazepam (Ativan Tab(*)) 2 mg PO Q6H PRN PRN Reason: agitation/anxiety Miscellaneous (Ativan Pyxis Altamirano) 1 ea N/A .ATIVAN IV ALTAMIRANO PRN PRN Reason: PYXIS ALTAMIRANO Multivitamins/Minerals (Theragran/Minerals Tab*) 1 tab PO DAILY [facility] Last Admin: 11/27/18 09:01 Dose: Not Given Nystatin (Nystatin Cream*) 1 applic TOPICAL DAILY [facility] Last Admin: 11/27/18 09:01 Dose: Not Given Olanzapine (Zyprexa * Tab Odt) 5 mg PO DAILY PRN PRN Reason: AGITATION Last Admin: 11/27/18 09:10 Dose: 5 mg Paliperidone (Invega Er Tab*) 9 mg PO DAILY [facility] Last Admin: 11/27/18 09:00 Dose: 9 mg Pantoprazole Sodium (Protonix Tab*) 40 mg PO DAILY WITH MEAL [facility] Last Admin: 11/26/18 12:12 Dose: 40 mg Potassium Chloride (Klor Con Er Tab*) 20 meq PO BID [facility] Last Admin: 11/26/18 21:33 Dose: 20 meq Sertraline HCl (Zoloft*) 200 mg PO DAILY [facility] Last Admin: 11/26/18 12:11 Dose: 200 mg Triamcinolone Acetonide (Triamcinolone 0.5% Oint *) 1 applic TOPICAL DAILY [facility] Last Admin: 11/27/18 09:00 Dose: Not Given Trimethoprim/Sulfamethoxazole (Bactrim Ds 800/160 Tab*) 1 tab PO BID [facility] Last Admin: 11/26/18 21:33 Dose: 1 tab - Discharge Plan Discharge Plan: Inpatient Hospitalization
[2018-11-28] MEDS: Paliperidone ER TAB* 9 MG TAB.ER PO SCH (10:50)
[2018-11-28] MEDS: clonazePAM TAB(*) 1 MG PO SCH ×2 (10:50→22:18)
[2018-11-28] MEDS: Pantoprazole TAB * 40 MG TAB PO SCH (10:51)
[2018-11-28] MEDS: Sulfamethox/Trimethoprim DS 800/160* TAB PO SCH ×2 (10:51→22:17)
[2018-11-28] MEDS: Sertraline* 100 MG TAB PO SCH (10:51)
[2018-11-28] MEDS: Hydrochlorothiazide TAB* 25 MG PO SCH (11:02)
[2018-11-28] MEDS: Potassium Chlor TAB* 20 MEQ TAB.ER PO SCH ×2 (11:02→22:17)
[2018-11-28] MEDS: Multivitamins/Minerals TAB PO SCH (11:04)
[2018-11-28] MEDS: Nystatin CREAM* 15 GM TUBE TOPICAL SCH (11:05)
[2018-11-28] MEDS: Triamcinolone 0.5% OINT * 15 GM TUBE TOPICAL SCH (11:05)
[2018-11-29] MEDS: clonazePAM TAB(*) 1 MG PO SCH ×2 (09:42→20:27)
[2018-11-29] MEDS: Potassium Chlor TAB* 20 MEQ TAB.ER PO SCH ×2 (09:43→20:27)
[2018-11-29] MEDS: Multivitamins/Minerals TAB PO SCH (09:43)
[2018-11-29] MEDS: Pantoprazole TAB * 40 MG TAB PO SCH (09:43)
[2018-11-29] MEDS: Sulfamethox/Trimethoprim DS 800/160* TAB PO SCH ×2 (09:43→20:27)
[2018-11-29] MEDS: Paliperidone ER TAB* 9 MG TAB.ER PO SCH (09:43)
[2018-11-29] MEDS: Sertraline* 100 MG TAB PO SCH (09:44)
[2018-11-29] MEDS: Hydrochlorothiazide TAB* 25 MG PO SCH (09:44)
[2018-11-29] MEDS: Nystatin CREAM* 15 GM TUBE TOPICAL SCH (09:50)
[2018-11-29] MEDS: Triamcinolone 0.5% OINT * 15 GM TUBE TOPICAL SCH (09:51)
[2018-11-30] MEDS: Hydrochlorothiazide TAB* 25 MG PO SCH (10:12)
[2018-11-30] MEDS: clonazePAM TAB(*) 1 MG PO SCH (10:12)
[2018-11-30] MEDS: Multivitamins/Minerals TAB PO SCH (10:12)
[2018-11-30] MEDS: Paliperidone ER TAB* 9 MG TAB.ER PO SCH (10:13)
[2018-11-30] MEDS: Pantoprazole TAB * 40 MG TAB PO SCH (10:13)
[2018-11-30] MEDS: Sertraline* 100 MG TAB PO SCH (10:13)
[2018-11-30] MEDS: Potassium Chlor TAB* 20 MEQ TAB.ER PO SCH ×2 (10:13→20:44)
[2018-11-30] MEDS: Sulfamethox/Trimethoprim DS 800/160* TAB PO SCH ×2 (10:13→20:44)
[2018-11-30] MEDS: Nystatin CREAM* 15 GM TUBE TOPICAL SCH (10:18)
[2018-11-30] MEDS: Triamcinolone 0.5% OINT * 15 GM TUBE TOPICAL SCH (10:18)
[2018-11-30] MEDS: LORazepam TAB(*) 1 MG PO PRN (20:44)
[2018-12-01] MEDS: OLANzapine TAB*ODT* 5 MG PO PRN (02:23)
[2018-12-01] MEDS: LORazepam TAB(*) 1 MG PO PRN ×3 (04:00→16:21)
[2018-12-01] MEDS ORDERED: clonazePAM TAB(*) 1 MG PO SCH (10:00)
[2018-12-01] MEDS: Paliperidone ER TAB* 9 MG TAB.ER PO SCH (10:02)
[2018-12-01] MEDS: Sertraline* 100 MG TAB PO SCH (10:02)
[2018-12-01] MEDS: Pantoprazole TAB * 40 MG TAB PO SCH (10:03)
[2018-12-01] MEDS: Multivitamins/Minerals TAB PO SCH (10:04)
[2018-12-01] MEDS: Hydrochlorothiazide TAB* 25 MG PO SCH (10:04)
[2018-12-01] MEDS: Potassium Chlor TAB* 20 MEQ TAB.ER PO SCH ×2 (10:05→20:28)
[2018-12-01] MEDS: Sulfamethox/Trimethoprim DS 800/160* TAB PO SCH (10:05)
[2018-12-01] MEDS: Triamcinolone 0.5% OINT * 15 GM TUBE TOPICAL SCH (10:30)
[2018-12-01] MEDS: Nystatin CREAM* 15 GM TUBE TOPICAL SCH (10:30)
[2018-12-01] MEDS ORDERED: Paliperidone SUSTENNA* 234 MG/1.5 ML IM ONE (12:52)
[2018-12-01 14:54] LABS: Hematocrit 32 % (35-47); Hemoglobin 9.9 g/dL (12.0-16.0); Mean Corpuscular HGB Conc 31 g/dL (31-36); Mean Corpuscular Hemoglobin 21 pg (27-31); Mean Corpuscular Volume 69 fL (80-97); Mean Platelet Volume 8.6 fL (7.4-10.4); Platelet Count 226 10^3/uL (150-450); Red Blood Count 4.66 10^6 /uL (3.70-4.87); Red Cell Distribution Width 24 % (10-15); White Blood Count 4.2 10^3/uL (3.5-10.8)
[2018-12-01 14:57] LABS: BUN/Creatinine Ratio 9.4 (8-20); Calcium 9.8 mg/dL (8.6-10.3); EGFR African American 94.4 (>60); Potassium 3.4 mmol/L (3.5-5.0)
--- NOTE | 2018-12-01 15:05 | PN ---
Subjective - Subjective Date of Service: 12/01/18 Service Type: 85036 Hosp care 25 min moderate complexity Subjective: Patient presents as guarded but more interactive than previous encounters. She states she could do her own discharge planning as she has a Bachelor's in Social work. Patient denies knowledge of applicable outpatient referrals and is conflicted about living with her grandmother in [place]. She agrees to long-acting injectable of paliperidone. She reports better efficacy with lorazepam, compared to clonazepam. Repeat CBC equivalent to prior values. K+ increased slightly to 3.4. Objective - General Observations Appearance: Well Groomed Stature: Overweight Posture: Slumped Eye Contact: Intense, Intermittent - Interaction Observations Attitude Towards Examiner: Cooperative, Anxious, Mistrustful Stated Mood: Anxious Affect: Blunted Speech Pattern/Tone: Delayed, Quiet Volume Thought Process: Circumstantial, Impoverished Perception: WNL Thought Content: Paranoid Thought Process: Lethality: Paranoid Ideation Hallucination Type: Denies Delusion Type: Denies - Cognitive Function Orientation: A&O x 4 Level of Consciousness: Alert Cognition: Impaired Attention/Concentration, Impaired Ability to Abstract Estimated Intelligence: Normal Insight: Difficulty Acknowledging Presence of Psyciatric Problems Judgment Within Normal Limits: No Ability to Make Reasonable Decisions: Moderately Impaired - Medication Compliance Cooperative with Inpatient Medication Regimen: Yes - Group Participation Participates in Group Activities: Partial Assessment - Assessment Merits Inpatient Hospitalization: For Immediate Safety, For Stabilization, For Discharge Planning, Pending Safe DC Plan Inpatient DSM-V Dx: F25.0 Clinical Impression: 32yo female with history of schizoaffective d/o and polysubstance use who presented to ED with c/o AH and suicidal ideation of burning herself in her home. She continues to present as disorganized and unable to care for herself. She merits hospitalization for immediate safety and stabilization. Plan - Plan Treatment Plan: Name: JESSICA BARRAGAN Birthdate: 1985 [id number] continue acute intensive psychiatric treatment. may decrease to q30min. give first dose of Invega Sustenna IM, DC oral paliperidone. DC clonazepam, continue prn lorazepam. obtain CT brain when pt able to tolerate discharge planning to include family and outpatient referrals. Continued Medication Management: Start Medication Medications: Current Medications Acetaminophen (Tylenol Tab*) 650 mg PO Q4H PRN PRN Reason: PAIN; OR TEMP >101 Al Hydrox/Mg Hydrox/Simethicone (Maalox Plus*) 30 ml PO Q4H PRN PRN Reason: INDIGESTION Hydrochlorothiazide (Hydrodiuril Tab*) 50 mg PO DAILY [facility] Last Admin: 12/01/18 10:04 Dose: 50 mg Hydroxyzine HCl (Atarax Tab*) 50 mg PO DAILY PRN PRN Reason: ANXIETY Last Admin: 11/25/18 16:36 Dose: 50 mg Lorazepam (Ativan Tab(*)) 1 mg PO Q6H PRN PRN Reason: agitation/anxiety Miscellaneous (Ativan Pyxis Altamirano) 1 ea N/A .ATIVAN IV ALTAMIRANO PRN PRN Reason: PYXIS ALTAMIRANO Multivitamins/Minerals (Theragran/Minerals Tab*) 1 tab PO DAILY [facility] Last Admin: 12/01/18 10:04 Dose: 1 tab Nystatin (Nystatin Cream*) 1 applic TOPICAL DAILY [facility] Last Admin: 12/01/18 10:30 Dose: Not Given Olanzapine (Zyprexa * Tab Odt) 5 mg PO DAILY PRN PRN Reason: AGITATION Last Admin: 12/01/18 02:23 Dose: 5 mg Pantoprazole Sodium (Protonix Tab*) 40 mg PO DAILY WITH MEAL [facility] Last Admin: 12/01/18 10:03 Dose: 40 mg Potassium Chloride (Klor Con Er Tab*) 20 meq PO BID [facility] Last Admin: 12/01/18 10:05 Dose: 20 meq Sertraline HCl (Zoloft*) 200 mg PO DAILY [facility] Last Admin: 12/01/18 10:02 Dose: 200 mg Triamcinolone Acetonide (Triamcinolone 0.5% Oint *) 1 applic TOPICAL DAILY [facility] Last Admin: 12/01/18 10:30 Dose: Not Given - Discharge Plan Discharge Plan: Inpatient Hospitalization
[2018-12-01] MEDS: hydrOXYzine HCL TAB* 50 MG PO PRN (22:00)
[2018-12-02] MEDS: LORazepam TAB(*) 1 MG PO PRN (00:23)
[2018-12-02] MEDS: Multivitamins/Minerals TAB PO SCH (10:04)
[2018-12-02] MEDS: Pantoprazole TAB * 40 MG TAB PO SCH (10:04)
[2018-12-02] MEDS: Hydrochlorothiazide TAB* 25 MG PO SCH (10:04)
[2018-12-02] MEDS: Potassium Chlor TAB* 20 MEQ TAB.ER PO SCH ×2 (10:04→22:19)
[2018-12-02] MEDS: Sertraline* 100 MG TAB PO SCH (10:04)
[2018-12-02] MEDS: Triamcinolone 0.5% OINT * 15 GM TUBE TOPICAL SCH (10:08)
[2018-12-02] MEDS: Nystatin CREAM* 15 GM TUBE TOPICAL SCH (10:08)
[2018-12-02] MEDS: clonazePAM TAB(*) 1 MG PO SCH ×2 (13:57→22:19)
[2018-12-03] MEDS: clonazePAM TAB(*) 1 MG PO SCH ×2 (08:58→20:40)
[2018-12-03] MEDS: Potassium Chlor TAB* 20 MEQ TAB.ER PO SCH ×2 (08:59→20:40)
[2018-12-03] MEDS: Pantoprazole TAB * 40 MG TAB PO SCH (08:59)
[2018-12-03] MEDS: Multivitamins/Minerals TAB PO SCH (08:59)
[2018-12-03] MEDS: Hydrochlorothiazide TAB* 25 MG PO SCH (08:59)
[2018-12-03] MEDS: Sertraline* 100 MG TAB PO SCH (08:59)
--- NOTE | 2018-12-03 10:28 | PN ---
Subjective - Subjective Date of Service: 12/03/18 Service Type: 27810 Hosp care 25 min moderate complexity Subjective: Patient standing in bathroom with bizarre hand gestures upon approach. She presents as guarded and hypervigilant during conversation. Topic of conversation is tangential and disorganized. She denies AH or VH but appears to respond to internal stimuli. She makes statements about her family that are likely delusion. For example, she asked her mother if she is sleeping with her [the patient's] , if her father is and that her grandmother is . Director Of Payroll spoke with patient's PCP, Dr Buckner, who treats her through [facility] [phone]. He reports they have had difficulty referring her to outpatient psychiatric services . He states she has demonstrated decreased stability around the time of from her ; therefore he was seing her weekly. She never presented as frankly psychotic or delusional in his office. He states that she did well on carbamazapine. He reports she often requests higher doses of HCTZ due to edema but that 25mg daily would be sufficient, especially in light of recent hypokalemia. She also has poorly controlled iron deficiency anemia. He states appreciation for collaboration and sends best wishes to Jessica. Objective - General Observations Appearance: Disheveled Appears Stated Age: Yes Stature: Overweight Posture: Slumped Eye Contact: Intermittent Behavior/Activity: Peculiar - Interaction Observations Attitude Towards Examiner: Cooperative, Mistrustful Stated Mood: Anxious Affect: Blunted Speech Pattern/Tone: Delayed, Quiet Volume Thought Process: Disorganized, Filght of Ideas Perception: WNL Thought Content: Paranoid Thought Process: Lethality: Paranoid Ideation Hallucination Type: Denies Delusion Type: Persecution - Cognitive Function Orientation: A&O x 4 Level of Consciousness: Alert Cognition: Impaired Attention/Concentration Estimated Intelligence: Normal Insight: Difficulty Acknowledging Presence of Psyciatric Problems Judgment Within Normal Limits: No Ability to Make Reasonable Decisions: Serverely Impaired - Medication Compliance Cooperative with Inpatient Medication Regimen: Yes - Group Participation Participates in Group Activities: Partial Assessment - Assessment Merits Inpatient Hospitalization: For Immediate Safety, For Stabilization Inpatient DSM-V Dx: F25.0 Clinical Impression: 32yo female with history of schizoaffective d/o and polysubstance use who presented to ED with c/o AH and suicidal ideation of burning herself in her home. She continues to present as grossly disorganized and unable to care for herself. She merits hospitalization for immediate safety and stabilization. Plan - Plan Treatment Plan: Name: JESSICA BARRAGAN Birthdate: 1985 [id number] continue acute intensive psychiatric treatment. may decrease to q30min. given first dose of Invega Sustenna IM on 12/01/18. reinstate scheduled clonazepam, continue prn lorazepam. start titration of carbamazapine. decrease HCTZ to 25mg daily. obtain CT brain when pt able to tolerate discharge planning to include family and outpatient referrals. Continued Medication Management: Start Medication Medications: Current Medications Acetaminophen (Tylenol Tab*) 650 mg PO Q4H PRN PRN Reason: PAIN; OR TEMP >101 Al Hydrox/Mg Hydrox/Simethicone (Maalox Plus*) 30 ml PO Q4H PRN PRN Reason: INDIGESTION Clonazepam (Klonopin Tab(*)) 1 mg PO BID [facility] Last Admin: 12/03/18 08:58 Dose: 1 mg Hydrochlorothiazide (Hydrodiuril Tab*) 50 mg PO DAILY [facility] Last Admin: 12/03/18 08:59 Dose: 50 mg Hydroxyzine HCl (Atarax Tab*) 50 mg PO DAILY PRN PRN Reason: ANXIETY Last Admin: 12/01/18 22:00 Dose: 50 mg Lorazepam (Ativan Tab(*)) 1 mg PO Q6H PRN PRN Reason: agitation/anxiety Last Admin: 12/02/18 00:23 Dose: 1 mg Miscellaneous (Ativan Pyxis Altamirano) 1 ea N/A .ATIVAN IV ALTAMIRANO PRN PRN Reason: PYXIS ALTAMIRANO Multivitamins/Minerals (Theragran/Minerals Tab*) 1 tab PO DAILY [facility] Last Admin: 12/03/18 08:59 Dose: 1 tab Nystatin (Nystatin Cream*) 1 applic TOPICAL DAILY [facility] Last Admin: 12/02/18 10:08 Dose: 1 applic Olanzapine (Zyprexa * Tab Odt) 5 mg PO DAILY PRN PRN Reason: AGITATION Last Admin: 12/01/18 02:23 Dose: 5 mg Pantoprazole Sodium (Protonix Tab*) 40 mg PO DAILY WITH MEAL [facility] Last Admin: 12/03/18 08:59 Dose: 40 mg Potassium Chloride (Klor Con Er Tab*) 20 meq PO BID [facility] Last Admin: 12/03/18 08:59 Dose: 20 meq Sertraline HCl (Zoloft*) 200 mg PO DAILY [facility] Last Admin: 12/03/18 08:59 Dose: 200 mg Triamcinolone Acetonide (Triamcinolone 0.5% Oint *) 1 applic TOPICAL DAILY [facility] Last Admin: 12/02/18 10:08 Dose: 1 applic - Discharge Plan Discharge Plan: Inpatient Hospitalization
[2018-12-03] MEDS: Triamcinolone 0.5% OINT * 15 GM TUBE TOPICAL SCH (13:16)
[2018-12-03] MEDS: Nystatin CREAM* 15 GM TUBE TOPICAL SCH (13:35)
[2018-12-03] MEDS: carBAMazepine TAB(*) 200 MG PO SCH ×2 (14:01→20:41)
[2018-12-04] MEDS: clonazePAM TAB(*) 1 MG PO SCH ×2 (10:03→21:32)
[2018-12-04] MEDS: Sertraline* 100 MG TAB PO SCH (10:04)
[2018-12-04] MEDS: Potassium Chlor TAB* 20 MEQ TAB.ER PO SCH ×2 (10:04→21:30)
[2018-12-04] MEDS: Multivitamins/Minerals TAB PO SCH (10:04)
[2018-12-04] MEDS: carBAMazepine TAB(*) 200 MG PO SCH ×2 (10:04→21:33)
[2018-12-04] MEDS: Hydrochlorothiazide TAB* 25 MG PO SCH (10:04)
[2018-12-04] MEDS: Pantoprazole TAB * 40 MG TAB PO SCH (10:04)
[2018-12-04] MEDS: Triamcinolone 0.5% OINT * 15 GM TUBE TOPICAL SCH (10:06)
[2018-12-04] MEDS: Nystatin CREAM* 15 GM TUBE TOPICAL SCH (10:07)
[2018-12-05] MEDS: Sertraline* 100 MG TAB PO SCH (09:59)
[2018-12-05] MEDS: Potassium Chlor TAB* 20 MEQ TAB.ER PO SCH ×2 (09:59→20:42)
[2018-12-05] MEDS: Multivitamins/Minerals TAB PO SCH (10:00)
[2018-12-05] MEDS: Pantoprazole TAB * 40 MG TAB PO SCH (10:00)
[2018-12-05] MEDS: carBAMazepine TAB(*) 200 MG PO SCH ×2 (10:01→20:43)
--- NOTE | 2018-12-05 11:43 | PN ---
Subjective - Subjective Date of Service: 12/05/18 Service Type: 24169 Hosp care 25 min moderate complexity Subjective: Patient is completing paperwork with hypergraphia and unrelated information. She demonstrates brief periods of lucidity, followed by flight of ideas. She agrees to obtain second dose of Invega sustenna. She presents as guarded and asks many questions of screen writer about my attire and profession. She states "I'm not trying to be disrespectful but I don't trust Nurse Practitioners." She continues to participate in spontaneous conversation. Patient denies AH and states she has "reoccurring thoughts of people I don't like. At least my memories are back. I don't have to hide those." She talks about Lia and Elmer but does not answer my questions about them. She asks if she has to be to James. She continues to speak with loose associations and eventually asks me to leave her room. Objective - General Observations Appearance: Disheveled Appears Stated Age: Yes Stature: Overweight Posture: Slumped Eye Contact: Intense, Intermittent Behavior/Activity: Peculiar - Interaction Observations Attitude Towards Examiner: Anxious, Evasive Stated Mood: Irritable Affect: Restricted Speech Pattern/Tone: Delayed, Quiet Volume Thought Process: Disorganized, Tangential Perception: WNL Thought Content: Paranoid Thought Process: Lethality: Paranoid Ideation Delusion Type: Persecution - Cognitive Function Orientation: Person, Place, Situation Level of Consciousness: Alert Cognition: Impaired Attention/Concentration Estimated Intelligence: Normal Insight: Difficulty Acknowledging Presence of Psyciatric Problems Judgment Within Normal Limits: No Ability to Make Reasonable Decisions: Moderately Impaired - Medication Compliance Cooperative with Inpatient Medication Regimen: Yes - Group Participation Participates in Group Activities: Partial Assessment - Assessment Merits Inpatient Hospitalization: For Immediate Safety, For Stabilization, For Discharge Planning Inpatient DSM-V Dx: F25.0 Clinical Impression: 32yo female with history of schizoaffective d/o and polysubstance use who presented to ED with c/o AH and suicidal ideation of burning herself in her home. She continues to present as disorganized and unable to care for herself. She is medication compliant and starting to show some improvement. She merits hospitalization for immediate safety and stabilization. Plan - Plan Treatment Plan: Name: JESSICA BARRAGAN Birthdate: 1985 [id number] continue acute intensive psychiatric treatment. may decrease to q30min. may allow staff pass and computer use per RN discretion. given first dose of Invega Sustenna (234mg) IM on 12/01/18. Give second booster of Invega Sustenna (156mg) today. Increase carbamazapine to 300mg BID; decrease sertraline to 100mg daily. obtain CT brain when pt able to tolerate discharge planning to include family and outpatient referrals. Continued Medication Management: Start Medication Medications: Current Medications Acetaminophen (Tylenol Tab*) 650 mg PO Q4H PRN PRN Reason: PAIN; OR TEMP >101 Al Hydrox/Mg Hydrox/Simethicone (Maalox Plus*) 30 ml PO Q4H PRN PRN Reason: INDIGESTION Carbamazepine (Tegretol Tab(*)) 300 mg PO BID [facility] Clonazepam (Klonopin Tab(*)) 1 mg PO BID [facility] Last Admin: 12/04/18 21:32 Dose: 1 mg Hydrochlorothiazide (Hydrodiuril Tab*) 25 mg PO DAILY [facility] Last Admin: 12/04/18 10:04 Dose: 25 mg Hydroxyzine HCl (Atarax Tab*) 50 mg PO Q6H PRN PRN Reason: ANXIETY Lorazepam (Ativan Tab(*)) 1 mg PO Q6H PRN PRN Reason: agitation/anxiety Last Admin: 12/02/18 00:23 Dose: 1 mg Melatonin (Melatonin) 3 mg PO BEDTIME [facility] Miscellaneous (Ativan Pyxis Altamirano) 1 ea N/A .ATIVAN IV ALTAMIRANO PRN PRN Reason: PYXIS ALTAMIRANO Multivitamins/Minerals (Theragran/Minerals Tab*) 1 tab PO DAILY [facility] Last Admin: 12/05/18 10:00 Dose: 1 tab Nystatin (Nystatin Cream*) 1 applic TOPICAL DAILY [facility] Last Admin: 12/04/18 10:07 Dose: Not Given Olanzapine (Zyprexa * Tab Odt) 5 mg PO DAILY PRN PRN Reason: AGITATION Last Admin: 12/01/18 02:23 Dose: 5 mg Paliperidone Palmitate (Invega Sustenna*) 156 mg IM ONCE ONE Stop: 12/05/18 12:01 Pantoprazole Sodium (Protonix Tab*) 40 mg PO DAILY WITH MEAL [facility] Last Admin: 12/05/18 10:00 Dose: 40 mg Potassium Chloride (Klor Con Er Tab*) 20 meq PO BID [facility] Last Admin: 12/05/18 09:59 Dose: 20 meq Sertraline HCl (Zoloft*) 100 mg PO DAILY [facility] Triamcinolone Acetonide (Triamcinolone 0.5% Oint *) 1 applic TOPICAL DAILY [facility] Last Admin: 12/04/18 10:06 Dose: Not Given - Discharge Plan Discharge Plan: Inpatient Hospitalization
[2018-12-05] MEDS: clonazePAM TAB(*) 1 MG PO SCH ×2 (11:50→20:43)
[2018-12-05] MEDS: Hydrochlorothiazide TAB* 25 MG PO SCH (11:51)
[2018-12-05] MEDS: Triamcinolone 0.5% OINT * 15 GM TUBE TOPICAL SCH (11:55)
[2018-12-05] MEDS: Nystatin CREAM* 15 GM TUBE TOPICAL SCH (11:55)
[2018-12-05] MEDS ORDERED: Paliperidone SUSTENNA* 156 MG/1 ML IM ONE (12:00)
[2018-12-05] MEDS: Melatonin 3 MG TAB PO SCH (20:44)
[2018-12-06] MEDS: clonazePAM TAB(*) 1 MG PO SCH ×2 (08:30→21:49)
[2018-12-06] MEDS: Hydrochlorothiazide TAB* 25 MG PO SCH (08:30)
[2018-12-06] MEDS: Multivitamins/Minerals TAB PO SCH (08:30)
[2018-12-06] MEDS: Pantoprazole TAB * 40 MG TAB PO SCH (08:30)
[2018-12-06] MEDS: Potassium Chlor TAB* 20 MEQ TAB.ER PO SCH ×2 (08:30→21:48)
[2018-12-06] MEDS: carBAMazepine TAB(*) 200 MG PO SCH ×2 (08:30→21:48)
[2018-12-06] MEDS: Sertraline* 100 MG TAB PO SCH (08:31)
[2018-12-06] MEDS: Nystatin CREAM* 15 GM TUBE TOPICAL SCH (08:48)
[2018-12-06] MEDS: Triamcinolone 0.5% OINT * 15 GM TUBE TOPICAL SCH (08:48)
[2018-12-06] MEDS: LORazepam TAB(*) 1 MG PO PRN (15:11)
[2018-12-06] MEDS: Melatonin 3 MG TAB PO SCH (21:48)
[2018-12-07] MEDS: carBAMazepine TAB(*) 200 MG PO SCH ×2 (09:06→20:37)
[2018-12-07] MEDS: clonazePAM TAB(*) 1 MG PO SCH ×2 (09:06→20:38)
[2018-12-07] MEDS: Pantoprazole TAB * 40 MG TAB PO SCH (09:06)
[2018-12-07] MEDS: Multivitamins/Minerals TAB PO SCH (09:06)
[2018-12-07] MEDS: Sertraline* 100 MG TAB PO SCH (09:07)
[2018-12-07] MEDS: Potassium Chlor TAB* 20 MEQ TAB.ER PO SCH ×2 (09:07→20:38)
[2018-12-07] MEDS: Hydrochlorothiazide TAB* 25 MG PO SCH (09:07)
[2018-12-07] MEDS: Nystatin CREAM* 15 GM TUBE TOPICAL SCH (09:10)
[2018-12-07] MEDS: Triamcinolone 0.5% OINT * 15 GM TUBE TOPICAL SCH (09:10)
[2018-12-07] MEDS: LORazepam TAB(*) 1 MG PO PRN (12:27)
[2018-12-07] MEDS: hydrOXYzine HCL TAB* 50 MG PO PRN (15:17)
[2018-12-07] MEDS: Melatonin 3 MG TAB PO SCH (20:38)
[2018-12-08] MEDS: clonazePAM TAB(*) 1 MG PO SCH ×2 (07:35→20:55)
[2018-12-08] MEDS: Hydrochlorothiazide TAB* 25 MG PO SCH (07:35)
[2018-12-08] MEDS: Sertraline* 100 MG TAB PO SCH (07:36)
[2018-12-08] MEDS: Multivitamins/Minerals TAB PO SCH (07:36)
[2018-12-08] MEDS: Pantoprazole TAB * 40 MG TAB PO SCH (07:36)
[2018-12-08] MEDS: Nystatin CREAM* 15 GM TUBE TOPICAL SCH (07:37)
[2018-12-08] MEDS: Triamcinolone 0.5% OINT * 15 GM TUBE TOPICAL SCH (07:37)
[2018-12-08] MEDS: Potassium Chlor TAB* 20 MEQ TAB.ER PO SCH ×2 (07:37→20:55)
[2018-12-08] MEDS: carBAMazepine TAB(*) 200 MG PO SCH ×2 (07:38→20:56)
[2018-12-08] MEDS: LORazepam TAB(*) 1 MG PO PRN (15:00)
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
[2018-12-08] MEDS: Docusate CAP* 100 MG PO SCH (20:55)
[2018-12-08] MEDS: Melatonin 3 MG TAB PO SCH (20:55)
[2018-12-09] MEDS: Sertraline* 100 MG TAB PO SCH (08:21)
[2018-12-09] MEDS: clonazePAM TAB(*) 1 MG PO SCH ×2 (08:21→21:27)
[2018-12-09] MEDS: Hydrochlorothiazide TAB* 25 MG PO SCH (08:22)
[2018-12-09] MEDS: Ferrous Sulfate TAB* 325 MG PO SCH (08:22)
[2018-12-09] MEDS: Pantoprazole TAB * 40 MG TAB PO SCH (08:22)
[2018-12-09] MEDS: Multivitamins/Minerals TAB PO SCH (08:22)
[2018-12-09] MEDS: Potassium Chlor TAB* 20 MEQ TAB.ER PO SCH ×2 (08:22→21:29)
[2018-12-09] MEDS: Docusate CAP* 100 MG PO SCH ×2 (08:23→21:28)
[2018-12-09] MEDS: carBAMazepine TAB(*) 200 MG PO SCH ×2 (08:23→21:27)
[2018-12-09] MEDS: Nystatin CREAM* 15 GM TUBE TOPICAL SCH (08:26)
[2018-12-09] MEDS: Triamcinolone 0.5% OINT * 15 GM TUBE TOPICAL SCH (08:26)
[2018-12-09] MEDS: Nicotine* 2MG (FRUIT FLAVOR) GUM PO PRN ×2 (11:36→13:39)
[2018-12-09] MEDS: Nicotine PATCH 7 MG/24 HR* PATCH TRANSDERM SCH (11:36)
--- NOTE | 2018-12-09 11:42 | PN ---
BSU: Group Therapy Note - Service Type Service Type: [id number] Group Psychotherapy - CBT group note: Eve initially presented as irritable in group this morning, but began to spontaneously engage in conversation, elaborating on her life experiences in at times an insightful fashion, while being rather meandering on other occasions. Some of the content she introduced was inappropriate for group discussion, but she responded to redirection and was willing to engage in a dynamic conversation with staff and peers.
[2018-12-09] MEDS: LORazepam TAB(*) 1 MG PO PRN (15:38)
[2018-12-09] MEDS: Melatonin 3 MG TAB PO SCH (21:29)
[2018-12-09] MEDS: Nicotine Patch Removal NOTE FOLLOW UP SCH (21:30)
[2018-12-10] MEDS: Potassium Chlor TAB* 20 MEQ TAB.ER PO SCH ×2 (08:56→20:26)
[2018-12-10] MEDS: Docusate CAP* 100 MG PO SCH ×2 (08:56→20:26)
[2018-12-10] MEDS: Multivitamins/Minerals TAB PO SCH (08:56)
[2018-12-10] MEDS: Sertraline* 100 MG TAB PO SCH (08:56)
[2018-12-10] MEDS: Ferrous Sulfate TAB* 325 MG PO SCH (08:56)
[2018-12-10] MEDS: Pantoprazole TAB * 40 MG TAB PO SCH (08:57)
[2018-12-10] MEDS: Hydrochlorothiazide TAB* 25 MG PO SCH (08:57)
[2018-12-10] MEDS: carBAMazepine TAB(*) 200 MG PO SCH ×2 (08:57→20:26)
[2018-12-10] MEDS: clonazePAM TAB(*) 1 MG PO SCH ×2 (08:57→20:26)
[2018-12-10] MEDS: Nystatin CREAM* 15 GM TUBE TOPICAL SCH (09:00)
[2018-12-10] MEDS: Triamcinolone 0.5% OINT * 15 GM TUBE TOPICAL SCH (09:00)
[2018-12-10] MEDS: Nicotine PATCH 7 MG/24 HR* PATCH TRANSDERM SCH (09:00)
[2018-12-10] MEDS ORDERED: fluPHENAZine HCL TAB* 1 MG PO PRN (10:28)
[2018-12-10] MEDS: Nicotine* 2MG (FRUIT FLAVOR) GUM PO PRN ×3 (10:32→18:40)
--- NOTE | 2018-12-10 11:08 | PN ---
Subjective - Subjective Date of Service: 12/10/18 Service Type: 43309 Hosp care 15 min low complexity Subjective: Patient is pleasant and talkative upon approach. She appears to attend to internal stimuli. As conversation continues, she makes bizarre statements about family members. She is tangential from there. According to staff, patient has been participating moreso in programming. She is easily agitated and does not attend to topics. Objective - General Observations Appearance: Disheveled Stature: Overweight Posture: Slumped, Tense Eye Contact: Intermittent Behavior/Activity: Peculiar, Agitated - Interaction Observations Attitude Towards Examiner: Anxious, Mistrustful Stated Mood: Expansive Affect: Labile Speech Pattern/Tone: Delayed, Quiet Volume Thought Process: Tangential Perception: WNL Thought Content: Depressive, Paranoid, Self-Deprecatory Thought Process: Lethality: Paranoid Ideation Hallucination Type: Auditory Delusion Type: Persecution - Cognitive Function Orientation: A&O x 4 Level of Consciousness: Alert Cognition: Impaired Attention/Concentration Estimated Intelligence: Normal Insight: Difficulty Acknowledging Presence of Psyciatric Problems Judgment Within Normal Limits: No Ability to Make Reasonable Decisions: Serverely Impaired - Medication Compliance Cooperative with Inpatient Medication Regimen: Yes - Group Participation Participates in Group Activities: Partial Assessment - Assessment Merits Inpatient Hospitalization: For Immediate Safety, For Stabilization Inpatient DSM-V Dx: F25.0 Clinical Impression: 32yo female with history of schizoaffective d/o who presented to ED with c/o AH and suicidal ideation of burning herself in her home. She continues to present as disorganized and unable to care for herself. She is medication compliant and starting to show some improvement but remains psychotically related. She merits hospitalization for immediate safety and stabilization. Plan - Plan Treatment Plan: Name: JESSICA BARRAGAN Birthdate: 1985 [id number] continue acute intensive psychiatric treatment. may decrease to q30min. may allow staff pass and computer use per RN discretion. given first dose of Invega Sustenna (234mg) IM on 12/01/18. Given second booster of Invega Sustenna on 12/05/18. DC olanzapine; add fluphenazine 5mg BID prn agitation/anxiety. continue other medications, as ordered. obtain CT brain when pt able to tolerate refer to [facility] Medications: Current Medications Acetaminophen (Tylenol Tab*) 650 mg PO Q4H PRN PRN Reason: PAIN; OR TEMP >101 Al Hydrox/Mg Hydrox/Simethicone (Maalox Plus*) 30 ml PO Q4H PRN PRN Reason: INDIGESTION Carbamazepine (Tegretol Tab(*)) 300 mg PO BID [facility] Last Admin: 12/10/18 08:57 Dose: 300 mg Clonazepam (Klonopin Tab(*)) 1 mg PO BID [facility] Last Admin: 12/10/18 08:57 Dose: 1 mg Docusate Sodium (Colace Cap*) 100 mg PO BID [facility] Last Admin: 12/10/18 08:56 Dose: 100 mg Ferrous Sulfate (Ferrous Sulfate Tab*) 325 mg PO DAILY [facility] Last Admin: 12/10/18 08:56 Dose: 325 mg Fluphenazine HCl (Prolixin Tab*) 5 mg PO BID PRN PRN Reason: AGITATION/ANXIETY Hydrochlorothiazide (Hydrodiuril Tab*) 25 mg PO DAILY [facility] Last Admin: 12/10/18 08:57 Dose: 25 mg Hydroxyzine HCl (Atarax Tab*) 50 mg PO Q6H PRN PRN Reason: ANXIETY Last Admin: 12/07/18 15:17 Dose: 50 mg Lorazepam (Ativan Tab(*)) 1 mg PO Q6H PRN PRN Reason: agitation/anxiety Last Admin: 12/09/18 15:38 Dose: 1 mg Melatonin (Melatonin) 3 mg PO BEDTIME [facility] Last Admin: 12/09/18 21:29 Dose: 3 mg Miscellaneous (Ativan Pyxis Altamirano) 1 ea N/A .ATIVAN IV ALTAMIRANO PRN PRN Reason: PYXIS ALTAMIRANO Multivitamins/Minerals (Theragran/Minerals Tab*) 1 tab PO DAILY [facility] Last Admin: 12/10/18 08:56 Dose: 1 tab Nicotine (Nicotine Patch 7 Mg/24 Hr*) 1 patch TRANSDERM DAILY [facility] Last Admin: 12/10/18 09:00 Dose: Not Given Nicotine Polacrilex (Nicotine Gum*) 2 mg PO Q2H PRN PRN Reason: CRAVING Last Admin: 12/10/18 10:32 Dose: 2 mg Nystatin (Nystatin Cream*) 1 applic TOPICAL DAILY [facility] Last Admin: 12/10/18 09:00 Dose: Not Given Pantoprazole Sodium (Protonix Tab*) 40 mg PO DAILY WITH MEAL [facility] Last Admin: 12/10/18 08:57 Dose: 40 mg Pharmacy Profile Note (Nicotine Patch Removal Note*) 1 note FOLLOW UP 2100 [facility] Last Admin: 12/09/18 21:30 Dose: Not Given Potassium Chloride (Klor Con Er Tab*) 20 meq PO BID [facility] Last Admin: 12/10/18 08:56 Dose: 20 meq Sertraline HCl (Zoloft*) 100 mg PO DAILY [facility] Last Admin: 12/10/18 08:56 Dose: 100 mg Triamcinolone Acetonide (Triamcinolone 0.5% Oint *) 1 applic TOPICAL DAILY [facility] Last Admin: 12/10/18 09:00 Dose: Not Given - Discharge Plan Discharge Plan: Consider Longer Term Tx
[2018-12-10] MEDS: LORazepam TAB(*) 1 MG PO PRN (14:04)
--- NOTE | 2018-12-10 16:22 | PN ---
BSU: Group Therapy Note - Service Type Service Type: [id number] Group Psychotherapy - Medication Education Group: Patient attended group and presented with flat affect that did not vary with discussion. Although responsive to direct prompts to respond to questions, patient did not engage in spontaneous conversation.
[2018-12-10] MEDS: fluPHENAZine HCL TAB* 5 MG PO PRN (18:38)
[2018-12-10] MEDS: Melatonin 3 MG TAB PO SCH (20:26)
[2018-12-10] MEDS: Nicotine Patch Removal NOTE FOLLOW UP SCH (20:32)
[2018-12-11] MEDS: clonazePAM TAB(*) 1 MG PO SCH ×2 (07:43→22:45)
[2018-12-11] MEDS: Potassium Chlor TAB* 20 MEQ TAB.ER PO SCH ×2 (07:43→22:46)
[2018-12-11] MEDS: Ferrous Sulfate TAB* 325 MG PO SCH (07:44)
[2018-12-11] MEDS: Multivitamins/Minerals TAB PO SCH (07:44)
[2018-12-11] MEDS: Sertraline* 100 MG TAB PO SCH (07:45)
[2018-12-11] MEDS: Hydrochlorothiazide TAB* 25 MG PO SCH (07:45)
[2018-12-11] MEDS: carBAMazepine TAB(*) 200 MG PO SCH ×2 (07:45→22:45)
[2018-12-11] MEDS: Docusate CAP* 100 MG PO SCH ×2 (07:46→22:46)
[2018-12-11] MEDS: Pantoprazole TAB * 40 MG TAB PO SCH (07:47)
[2018-12-11] MEDS: Triamcinolone 0.5% OINT * 15 GM TUBE TOPICAL SCH (07:50)
[2018-12-11] MEDS: Nicotine PATCH 7 MG/24 HR* PATCH TRANSDERM SCH (07:50)
[2018-12-11] MEDS: Nystatin CREAM* 15 GM TUBE TOPICAL SCH (07:50)
[2018-12-11 08:38] LABS: ABS Eosinophils 0.2 10^3/ul (0-0.6); ABS Lymphocytes 1.6 10^3/ul (1.0-4.8); ABS Monocytes 0.3 10^3/ul (0-0.8); ABS Neutrophils 2.4 10^3/ul (1.5-7.7); BUN/Creatinine Ratio 13.6 (8-20); Calcium 9.5 mg/dL (8.6-10.3); EGFR African American 143.9 (>60); EGFR Non-African American 118.9 (>60); Eosinophil % 3.4 %; Hematocrit 31 % (35-47); Hemoglobin 9.4 g/dL (12.0-16.0); Lymphocyte % 35.5 %; Mean Corpuscular HGB Conc 31 g/dL (31-36); Mean Corpuscular Hemoglobin 22 pg (27-31); Mean Corpuscular Volume 70 fL (80-97); Mean Platelet Volume 7.9 fL (7.4-10.4); Platelet Count 227 10^3/uL (150-450); Potassium 3.8 mmol/L (3.5-5.0); Red Blood Count 4.39 10^6 /uL (3.70-4.87); Red Cell Distribution Width 23 % (10-15); White Blood Count 4.5 10^3/uL (3.5-10.8)
[2018-12-11] MEDS: Nicotine* 2MG (FRUIT FLAVOR) GUM PO PRN (10:59)
[2018-12-11] MEDS: fluPHENAZine HCL TAB* 5 MG PO PRN ×2 (11:42→16:45)
[2018-12-11] MEDS: LORazepam TAB(*) 1 MG PO PRN (16:45)
[2018-12-11] MEDS: Melatonin 3 MG TAB PO SCH (22:46)
[2018-12-11] MEDS: Nicotine Patch Removal NOTE FOLLOW UP SCH (23:29)
[2018-12-12] MEDS: LORazepam TAB(*) 1 MG PO PRN ×2 (06:32→13:48)
[2018-12-12] MEDS: Docusate CAP* 100 MG PO SCH ×2 (09:15→20:22)
[2018-12-12] MEDS: Sertraline* 100 MG TAB PO SCH (09:15)
[2018-12-12] MEDS: Multivitamins/Minerals TAB PO SCH (09:15)
[2018-12-12] MEDS: Potassium Chlor TAB* 20 MEQ TAB.ER PO SCH ×2 (09:15→20:23)
[2018-12-12] MEDS: Pantoprazole TAB * 40 MG TAB PO SCH (09:15)
[2018-12-12] MEDS: Ferrous Sulfate TAB* 325 MG PO SCH (09:15)
[2018-12-12] MEDS: Hydrochlorothiazide TAB* 25 MG PO SCH (09:15)
[2018-12-12] MEDS: Triamcinolone 0.5% OINT * 15 GM TUBE TOPICAL SCH (09:18)
[2018-12-12] MEDS: Nystatin CREAM* 15 GM TUBE TOPICAL SCH (09:18)
[2018-12-12] MEDS: Nicotine PATCH 7 MG/24 HR* PATCH TRANSDERM SCH (09:18)
[2018-12-12] MEDS: clonazePAM TAB(*) 1 MG PO SCH ×2 (10:13→20:22)
[2018-12-12] MEDS: carBAMazepine TAB(*) 200 MG PO SCH ×2 (10:14→20:21)
[2018-12-12] MEDS: Al Hydrox/Mg Hydrox/Simet LIQ* 30 ML UDC PO PRN (12:50)
[2018-12-12] MEDS: hydrOXYzine HCL TAB* 50 MG PO PRN (13:48)
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
[2018-12-12] MEDS: Melatonin 3 MG TAB PO SCH (20:22)
[2018-12-12] MEDS: Nicotine Patch Removal NOTE FOLLOW UP SCH (22:22)
[2018-12-13] MEDS: clonazePAM TAB(*) 1 MG PO SCH ×2 (09:14→20:32)
[2018-12-13] MEDS: Hydrochlorothiazide TAB* 25 MG PO SCH (09:14)
[2018-12-13] MEDS: Pantoprazole TAB * 40 MG TAB PO SCH (09:14)
[2018-12-13] MEDS: Potassium Chlor TAB* 20 MEQ TAB.ER PO SCH ×2 (09:14→20:33)
[2018-12-13] MEDS: Sertraline* 100 MG TAB PO SCH (09:15)
[2018-12-13] MEDS: Multivitamins/Minerals TAB PO SCH (09:15)
[2018-12-13] MEDS: Docusate CAP* 100 MG PO SCH ×2 (09:15→20:33)
[2018-12-13] MEDS: Ferrous Sulfate TAB* 325 MG PO SCH (09:15)
[2018-12-13] MEDS: carBAMazepine TAB(*) 200 MG PO SCH ×2 (09:16→20:34)
[2018-12-13] MEDS: Triamcinolone 0.5% OINT * 15 GM TUBE TOPICAL SCH (09:18)
[2018-12-13] MEDS: Nystatin CREAM* 15 GM TUBE TOPICAL SCH (09:18)
[2018-12-13] MEDS: Nicotine PATCH 7 MG/24 HR* PATCH TRANSDERM SCH (09:18)
[2018-12-13] MEDS: LORazepam TAB(*) 1 MG PO PRN (17:14)
[2018-12-13] MEDS: Melatonin 3 MG TAB PO SCH (20:33)
[2018-12-13] MEDS: Nicotine Patch Removal NOTE FOLLOW UP SCH (20:37)
[2018-12-14] MEDS: Acetaminophen TAB* 325 MG PO PRN (00:36)
[2018-12-14] MEDS: hydrOXYzine HCL TAB* 50 MG PO PRN (00:50)
[2018-12-14] MEDS: LORazepam TAB(*) 1 MG PO PRN ×2 (06:40→15:18)
[2018-12-14] MEDS: Pantoprazole TAB * 40 MG TAB PO SCH (07:54)
[2018-12-14] MEDS: Nicotine PATCH 7 MG/24 HR* PATCH TRANSDERM SCH (07:54)
[2018-12-14] MEDS: Ferrous Sulfate TAB* 325 MG PO SCH (07:54)
[2018-12-14] MEDS: Docusate CAP* 100 MG PO SCH ×2 (07:54→22:08)
[2018-12-14] MEDS: Hydrochlorothiazide TAB* 25 MG PO SCH (07:54)
[2018-12-14] MEDS: Sertraline* 100 MG TAB PO SCH (07:54)
[2018-12-14] MEDS: Potassium Chlor TAB* 20 MEQ TAB.ER PO SCH ×2 (07:54→22:08)
[2018-12-14] MEDS: Multivitamins/Minerals TAB PO SCH (07:54)
[2018-12-14] MEDS: carBAMazepine TAB(*) 200 MG PO SCH ×3 (07:55→22:08)
[2018-12-14] MEDS: Triamcinolone 0.5% OINT * 15 GM TUBE TOPICAL SCH (07:57)
[2018-12-14] MEDS: Nystatin CREAM* 15 GM TUBE TOPICAL SCH (07:57)
[2018-12-14] MEDS: clonazePAM TAB(*) 1 MG PO SCH ×2 (09:22→22:07)
[2018-12-14] MEDS: Melatonin 3 MG TAB PO SCH (22:08)
[2018-12-14] MEDS: Nicotine Patch Removal NOTE FOLLOW UP SCH (23:31)
[2018-12-15] MEDS: Acetaminophen TAB* 325 MG PO PRN ×2 (05:18→19:02)
[2018-12-15] MEDS: clonazePAM TAB(*) 1 MG PO SCH ×2 (08:24→22:28)
[2018-12-15] MEDS: Multivitamins/Minerals TAB PO SCH (08:24)
[2018-12-15] MEDS: Hydrochlorothiazide TAB* 25 MG PO SCH (08:24)
[2018-12-15] MEDS: carBAMazepine TAB(*) 200 MG PO SCH ×2 (08:25→22:25)
[2018-12-15] MEDS: Ferrous Sulfate TAB* 325 MG PO SCH (08:27)
[2018-12-15] MEDS: Potassium Chlor TAB* 20 MEQ TAB.ER PO SCH ×2 (08:27→22:29)
[2018-12-15] MEDS: Pantoprazole TAB * 40 MG TAB PO SCH (08:27)
[2018-12-15] MEDS: Docusate CAP* 100 MG PO SCH ×2 (08:27→22:28)
[2018-12-15] MEDS: Sertraline* 100 MG TAB PO SCH (08:28)
[2018-12-15] MEDS: Triamcinolone 0.5% OINT * 15 GM TUBE TOPICAL SCH (08:29)
[2018-12-15] MEDS: Nystatin CREAM* 15 GM TUBE TOPICAL SCH (08:29)
[2018-12-15] MEDS: Nicotine PATCH 7 MG/24 HR* PATCH TRANSDERM SCH (08:29)
--- NOTE | 2018-12-15 11:38 | PN ---
BSU: Group Therapy Note - Service Type Service Type: [id number] Group Psychotherapy - CBT Group Note: Eve was attentive and participatory in group this morning, remaining in good behavioral control. Difficulties with disorganized thinking become apparent with extended conversation. Eve discussed what she describes as life long difficulties with eating disordered symptoms and negative body image.
--- NOTE | 2018-12-15 14:47 | PN ---
Subjective - Subjective Date of Service: 12/15/18 Service Type: 66075 Hosp care 35 min high complexity Subjective: patient is showing some improvement but continues to have periods of disorganized and bizarre behavior. Her topic of conversation with justowriter operator is circumstantial about discharge and she often inquires about my demographics. She reports feeling like she is different from her appearance and that her skin color does not match who she is. She states the way she talks is not typical for her and that her voice is more than usual. Lumber Salvager spoke with patient's mother, Annabel, to give update on treatment planning. She reports she is impressed with Jessica's progress thus far. Annabel states Jessica was more conversational this weekend, as well as less confused and paranoid. She states concern that Jessica is not at baseline and agrees with plan to refer to [facility]. Received and reviewed records from [facility] admission 11/20-11/22/18. Records to be scanned into patient chart. Objective - General Observations Appearance: Well Groomed Stature: Overweight Posture: WNL Eye Contact: Intermittent Behavior/Activity: Peculiar - Interaction Observations Attitude Towards Examiner: Cooperative Stated Mood: Anxious, Silly Speech Pattern/Tone: Clear, Appropriate, Normal Volume Thought Process: Loose Associations, Tangential Perception: WNL Thought Content: Paranoid Thought Process: Lethality: Paranoid Ideation Hallucination Type: None Delusion Type: None - Cognitive Function Orientation: A&O x 4 Level of Consciousness: Alert Cognition: Impaired Attention/Concentration Estimated Intelligence: Normal Insight: Difficulty Acknowledging Presence of Psyciatric Problems Judgment Within Normal Limits: No Ability to Make Reasonable Decisions: Serverely Impaired - Medication Compliance Cooperative with Inpatient Medication Regimen: Yes - Group Participation Participates in Group Activities: Partial Assessment - Assessment Merits Inpatient Hospitalization: For Immediate Safety, For Stabilization Inpatient DSM-V Dx: F25.0 Clinical Impression: 32yo female with history of schizoaffective d/o who presented to ED with c/o AH and suicidal ideation of burning herself in her home. She continues to present as disorganized and unable to care for herself. She is medication compliant and starting to show some improvement but remains psychotically related. She merits hospitalization for immediate safety and stabilization. Plan - Plan Treatment Plan: Name: JESSICA BARRAGAN Birthdate: 1985 [id number] continue acute intensive psychiatric treatment. may decrease to q30min. may allow staff pass and computer use per RN discretion. given first dose of Invega Sustenna (234mg) IM on 12/01/18. Given second booster of Invega Sustenna on 12/05/18. continue other medications, as ordered. obtain CT brain when pt able to tolerate refer to [facility] Medications: Current Medications Acetaminophen (Tylenol Tab*) 650 mg PO Q4H PRN PRN Reason: PAIN; OR TEMP >101 Last Admin: 12/15/18 05:18 Dose: 650 mg Al Hydrox/Mg Hydrox/Simethicone (Maalox Plus*) 30 ml PO Q4H PRN PRN Reason: INDIGESTION Last Admin: 12/12/18 12:50 Dose: 30 ml Carbamazepine (Tegretol Tab(*)) 300 mg PO BID [facility] Last Admin: 12/15/18 08:25 Dose: 300 mg Clonazepam (Klonopin Tab(*)) 1 mg PO BID [facility] Last Admin: 12/15/18 08:24 Dose: 1 mg Docusate Sodium (Colace Cap*) 100 mg PO BID [facility] Last Admin: 12/15/18 08:27 Dose: 100 mg Ferrous Sulfate (Ferrous Sulfate Tab*) 325 mg PO DAILY [facility] Last Admin: 12/15/18 08:27 Dose: 325 mg Fluphenazine HCl (Prolixin Tab*) 5 mg PO BID PRN PRN Reason: AGITATION/ANXIETY Last Admin: 12/11/18 16:45 Dose: 5 mg Hydrochlorothiazide (Hydrodiuril Tab*) 25 mg PO DAILY [facility] Last Admin: 12/15/18 08:24 Dose: 25 mg Hydroxyzine HCl (Atarax Tab*) 50 mg PO Q6H PRN PRN Reason: ANXIETY Last Admin: 12/14/18 00:50 Dose: 50 mg Lorazepam (Ativan Tab(*)) 1 mg PO Q6H PRN PRN Reason: agitation/anxiety Last Admin: 12/14/18 15:18 Dose: 1 mg Melatonin (Melatonin) 3 mg PO BEDTIME [facility] Last Admin: 12/14/18 22:08 Dose: 3 mg Miscellaneous (Ativan Pyxis Altamirano) 1 ea N/A .ATIVAN IV ALTAMIRANO PRN PRN Reason: PYXIS ALTAMIRANO Multivitamins/Minerals (Theragran/Minerals Tab*) 1 tab PO DAILY [facility] Last Admin: 12/15/18 08:24 Dose: 1 tab Nicotine (Nicotine Patch 7 Mg/24 Hr*) 1 patch TRANSDERM DAILY [facility] Last Admin: 12/15/18 08:29 Dose: Not Given Nicotine Polacrilex (Nicotine Gum*) 2 mg PO Q2H PRN PRN Reason: CRAVING Last Admin: 12/11/18 10:59 Dose: 2 mg Nystatin (Nystatin Cream*) 1 applic TOPICAL DAILY [facility] Last Admin: 12/15/18 08:29 Dose: Not Given Pantoprazole Sodium (Protonix Tab*) 40 mg PO DAILY WITH MEAL [facility] Last Admin: 12/15/18 08:27 Dose: 40 mg Pharmacy Profile Note (Nicotine Patch Removal Note*) 1 note FOLLOW UP 2100 [facility] Last Admin: 12/14/18 23:31 Dose: Not Given Potassium Chloride (Klor Con Er Tab*) 20 meq PO BID [facility] Last Admin: 12/15/18 08:27 Dose: 20 meq Sertraline HCl (Zoloft*) 100 mg PO DAILY [facility] Last Admin: 12/15/18 08:28 Dose: 100 mg Triamcinolone Acetonide (Triamcinolone 0.5% Oint *) 1 applic TOPICAL DAILY [facility] Last Admin: 12/15/18 08:29 Dose: Not Given - Discharge Plan Discharge Plan: Consider Longer Term Tx
[2018-12-15] MEDS: LORazepam TAB(*) 1 MG PO PRN (19:28)
[2018-12-15] MEDS: Melatonin 3 MG TAB PO SCH (22:29)
[2018-12-15] MEDS: Nicotine Patch Removal NOTE FOLLOW UP SCH (22:36)
[2018-12-16] MEDS: Hydrochlorothiazide TAB* 25 MG PO SCH (08:44)
[2018-12-16] MEDS: carBAMazepine TAB(*) 200 MG PO SCH ×2 (08:45→21:27)
[2018-12-16] MEDS: Multivitamins/Minerals TAB PO SCH (08:45)
[2018-12-16] MEDS: clonazePAM TAB(*) 1 MG PO SCH ×2 (08:45→21:33)
[2018-12-16] MEDS: Potassium Chlor TAB* 20 MEQ TAB.ER PO SCH ×2 (08:46→21:27)
[2018-12-16] MEDS: Ferrous Sulfate TAB* 325 MG PO SCH (08:46)
[2018-12-16] MEDS: Nicotine PATCH 7 MG/24 HR* PATCH TRANSDERM SCH (08:47)
[2018-12-16] MEDS: Docusate CAP* 100 MG PO SCH ×2 (08:47→21:27)
[2018-12-16] MEDS: Pantoprazole TAB * 40 MG TAB PO SCH (08:47)
[2018-12-16] MEDS: Sertraline* 100 MG TAB PO SCH (08:47)
[2018-12-16] MEDS: Triamcinolone 0.5% OINT * 15 GM TUBE TOPICAL SCH (08:48)
[2018-12-16] MEDS: Nystatin CREAM* 15 GM TUBE TOPICAL SCH (08:49)
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
[2018-12-16] MEDS: Nicotine* 2MG (FRUIT FLAVOR) GUM PO PRN (17:54)
[2018-12-16] MEDS: Melatonin 3 MG TAB PO SCH (21:27)
[2018-12-16] MEDS: Nicotine Patch Removal NOTE FOLLOW UP SCH (21:31)
[2018-12-17] MEDS: Acetaminophen TAB* 325 MG PO PRN ×2 (05:22→18:18)
[2018-12-17] MEDS: Nicotine* 2MG (FRUIT FLAVOR) GUM PO PRN ×3 (07:49→18:19)
[2018-12-17] MEDS: clonazePAM TAB(*) 1 MG PO SCH ×2 (08:46→21:09)
[2018-12-17] MEDS: Ferrous Sulfate TAB* 325 MG PO SCH (08:47)
[2018-12-17] MEDS: Potassium Chlor TAB* 20 MEQ TAB.ER PO SCH ×2 (08:47→21:09)
[2018-12-17] MEDS: Hydrochlorothiazide TAB* 25 MG PO SCH (08:47)
[2018-12-17] MEDS: Sertraline* 100 MG TAB PO SCH (08:47)
[2018-12-17] MEDS: carBAMazepine TAB(*) 200 MG PO SCH ×2 (08:48→21:10)
[2018-12-17] MEDS: Docusate CAP* 100 MG PO SCH ×2 (08:48→21:09)
[2018-12-17] MEDS: Pantoprazole TAB * 40 MG TAB PO SCH (08:48)
[2018-12-17] MEDS: Multivitamins/Minerals TAB PO SCH (08:49)
[2018-12-17] MEDS: Nicotine PATCH 7 MG/24 HR* PATCH TRANSDERM SCH (08:49)
[2018-12-17] MEDS: Triamcinolone 0.5% OINT * 15 GM TUBE TOPICAL SCH (09:31)
[2018-12-17] MEDS: Nystatin CREAM* 15 GM TUBE TOPICAL SCH (09:31)
--- NOTE | 2018-12-17 11:28 | PN ---
BSU: Group Therapy Note - Service Type Service Type: [id number] Group Psychotherapy - CBT Group Note: Eve expressed apprenhension about possible transfer to a [facility], elaborating on how she does not want to miss her son's birthday. She was somewhat perseverative in conversation in regards to wether to tell her son who his father is or not, and was difficult to redirect or in accepting peer or staff support or suggestions.
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
--- NOTE | 2018-12-17 16:17 | PN ---
BSU: Group Therapy Note - Service Type Service Type: [id number] Group Psychotherapy - Medication Education Group: Patient was attentive and participatory in group, and remained in good behavioral control. Patient expressed positive insights regarding relevant treatment interventions. Patient stated understanding of material discussed and had appropriate questions.
[2018-12-17] MEDS: Melatonin 3 MG TAB PO SCH (21:09)
[2018-12-17] MEDS: Nicotine Patch Removal NOTE FOLLOW UP SCH (21:14)
[2018-12-18] MEDS: Acetaminophen TAB* 325 MG PO PRN (06:20)
[2018-12-18] MEDS: Potassium Chlor TAB* 20 MEQ TAB.ER PO SCH ×2 (09:16→21:00)
[2018-12-18] MEDS: Ferrous Sulfate TAB* 325 MG PO SCH (09:17)
[2018-12-18] MEDS: Hydrochlorothiazide TAB* 25 MG PO SCH (09:17)
[2018-12-18] MEDS: Pantoprazole TAB * 40 MG TAB PO SCH (09:18)
[2018-12-18] MEDS: Docusate CAP* 100 MG PO SCH ×2 (09:18→21:00)
[2018-12-18] MEDS: Multivitamins/Minerals TAB PO SCH (09:18)
[2018-12-18] MEDS: clonazePAM TAB(*) 1 MG PO SCH ×2 (09:19→20:59)
[2018-12-18] MEDS: Sertraline* 100 MG TAB PO SCH (09:20)
[2018-12-18] MEDS: carBAMazepine TAB(*) 200 MG PO SCH ×2 (09:20→21:00)
--- NOTE | 2018-12-18 11:37 | PN ---
BSU: Group Therapy Note - Service Type Service Type: [id number] Group Psychotherapy - CBT Group Note: Eve attended programming this morning, and perseverated about peer hygiene, imploring people to shower repeatedlly. She apparently is offended by a person who was not in attendence secondary to poor hygiene. She remained in good behavioral control.
[2018-12-18] MEDS: Nicotine PATCH 7 MG/24 HR* PATCH TRANSDERM SCH (11:44)
[2018-12-18] MEDS: Triamcinolone 0.5% OINT * 15 GM TUBE TOPICAL SCH (11:44)
[2018-12-18] MEDS: Nystatin CREAM* 15 GM TUBE TOPICAL SCH (11:44)
[2018-12-18] MEDS: LORazepam TAB(*) 1 MG PO PRN (14:44)
[2018-12-18] MEDS: Al Hydrox/Mg Hydrox/Simet LIQ* 30 ML UDC PO PRN (17:30)
[2018-12-18] MEDS: Melatonin 3 MG TAB PO SCH (21:00)
[2018-12-18] MEDS: Nicotine Patch Removal NOTE FOLLOW UP SCH (21:02)
[2018-12-19] MEDS: hydrOXYzine HCL TAB* 50 MG PO PRN ×2 (05:10→23:22)
[2018-12-19 08:10] LABS: ABS Eosinophils 0.1 10^3/ul (0-0.6); ABS Lymphocytes 1.2 10^3/ul (1.0-4.8); ABS Monocytes 0.6 10^3/ul (0-0.8); ABS Neutrophils 2.3 10^3/ul (1.5-7.7); Eosinophil % 3.3 %; Hematocrit 30 % (35-47); Hemoglobin 9.5 g/dL (12.0-16.0); Lymphocyte % 28.4 %; Mean Corpuscular HGB Conc 32 g/dL (31-36); Mean Corpuscular Hemoglobin 23 pg (27-31); Mean Corpuscular Volume 71 fL (80-97); Mean Platelet Volume 7.9 fL (7.4-10.4); Platelet Count 245 10^3/uL (150-450); Red Blood Count 4.19 10^6 /uL (3.70-4.87); Red Cell Distribution Width 24 % (10-15); White Blood Count 4.3 10^3/uL (3.5-10.8)
[2018-12-19 08:28] LABS: Calcium 9.4 mg/dL (8.6-10.3); EGFR African American 141.1 (>60); EGFR Non-African American 116.6 (>60); Potassium 4.3 mmol/L (3.5-5.0)
[2018-12-19 08:53] LABS: Carbamazepine 3.5 mcg/mL (4.0-12.0)
[2018-12-19] MEDS: clonazePAM TAB(*) 1 MG PO SCH ×2 (10:59→21:31)
[2018-12-19] MEDS: Hydrochlorothiazide TAB* 25 MG PO SCH (10:59)
[2018-12-19] MEDS: Ferrous Sulfate TAB* 325 MG PO SCH (11:01)
[2018-12-19] MEDS: Sertraline* 100 MG TAB PO SCH (11:01)
[2018-12-19] MEDS: Multivitamins/Minerals TAB PO SCH (11:01)
[2018-12-19] MEDS: Docusate CAP* 100 MG PO SCH ×2 (11:01→21:32)
[2018-12-19] MEDS: Pantoprazole TAB * 40 MG TAB PO SCH (11:01)
[2018-12-19] MEDS: Triamcinolone 0.5% OINT * 15 GM TUBE TOPICAL SCH (11:02)
[2018-12-19] MEDS: Nicotine PATCH 7 MG/24 HR* PATCH TRANSDERM SCH ×2 (11:03→11:04)
[2018-12-19] MEDS: Potassium Chlor TAB* 20 MEQ TAB.ER PO SCH ×2 (11:03→21:31)
[2018-12-19] MEDS: Nystatin CREAM* 15 GM TUBE TOPICAL SCH (11:03)
[2018-12-19] MEDS: carBAMazepine TAB(*) 200 MG PO SCH ×3 (11:16→21:32)
--- NOTE | 2018-12-19 11:36 | PN ---
BSU: Group Therapy Note - Service Type Service Type: [id number] Group Psychotherapy - CBT Group Note: Eve was attentive and participatory, engaging in discussion in a spontaneous fashion. She describes being hopeful of being discharged for her birthday this coming saturday.
--- NOTE | 2018-12-19 13:52 | PN ---
Subjective - Subjective Date of Service: 12/19/18 Service Type: [id number] Hosp care 15 min low complexity Subjective: Jessica inquires about her attitude towards me. She states she is trying very hard to be respectful. She goes on to describe how I remind her of her mother. Hydraulic Plumber Helper assures her that she has not been inappropriate. Patient states "It's counter transference, Tricia! I'm not stupid" and abruptly leaves conversation. Assessment - Assessment Merits Inpatient Hospitalization: For Immediate Safety, For Stabilization, For Ongoing Evaluation, Consolidate Improvements Inpatient DSM-V Dx: F25.0 Clinical Impression: 32yo female with history of schizoaffective d/o who presented to ED with c/o AH and suicidal ideation of burning herself in her home. She continues to present as disorganized and unable to care for herself. She is medication compliant and starting to show some improvement but remains psychotically related. She merits hospitalization for immediate safety and stabilization. Plan - Plan Treatment Plan: Name: JESSICA BARRAGAN Birthdate: 1985 [id number] continue acute intensive psychiatric treatment. may decrease to q30min. may allow staff pass and computer use per RN discretion. given first dose of Invega Sustenna (234mg) IM on 12/01/18. Given second booster of Invega Sustenna on 12/05/18. Carbamazapine level of 3.5, increase carbamazapine to 400mg BID. continue other medications, as ordered. referred to [facility], awaiting correspondence Medications: Current Medications Acetaminophen (Tylenol Tab*) 650 mg PO Q4H PRN PRN Reason: PAIN; OR TEMP >101 Last Admin: 12/18/18 06:20 Dose: 650 mg Al Hydrox/Mg Hydrox/Simethicone (Maalox Plus*) 30 ml PO Q4H PRN PRN Reason: INDIGESTION Last Admin: 12/18/18 17:30 Dose: 30 ml Carbamazepine (Tegretol Tab(*)) 400 mg PO BID [facility] Last Admin: 12/19/18 11:17 Dose: 400 mg Clonazepam (Klonopin Tab(*)) 1 mg PO BID [facility] Last Admin: 12/19/18 10:59 Dose: 1 mg Docusate Sodium (Colace Cap*) 100 mg PO BID [facility] Last Admin: 12/19/18 11:01 Dose: 100 mg Ferrous Sulfate (Ferrous Sulfate Tab*) 325 mg PO DAILY [facility] Last Admin: 12/19/18 11:01 Dose: 325 mg Fluphenazine HCl (Prolixin Tab*) 5 mg PO BID PRN PRN Reason: AGITATION/ANXIETY Last Admin: 12/11/18 16:45 Dose: 5 mg Hydrochlorothiazide (Hydrodiuril Tab*) 25 mg PO DAILY [facility] Last Admin: 12/19/18 10:59 Dose: 25 mg Hydroxyzine HCl (Atarax Tab*) 50 mg PO Q6H PRN PRN Reason: ANXIETY Last Admin: 12/19/18 05:10 Dose: 50 mg Lorazepam (Ativan Tab(*)) 1 mg PO Q6H PRN PRN Reason: agitation/anxiety Last Admin: 12/18/18 14:44 Dose: 1 mg Melatonin (Melatonin) 3 mg PO BEDTIME [facility] Last Admin: 12/18/18 21:00 Dose: 3 mg Miscellaneous (Ativan Pyxis Altamirano) 1 ea N/A .ATIVAN IV ALTAMIRANO PRN PRN Reason: PYXIS ALTAMIRANO Multivitamins/Minerals (Theragran/Minerals Tab*) 1 tab PO DAILY [facility] Last Admin: 12/19/18 11:01 Dose: 1 tab Nicotine (Nicotine Patch 7 Mg/24 Hr*) 1 patch TRANSDERM DAILY [facility] Last Admin: 12/19/18 11:04 Dose: Not Given Nicotine Polacrilex (Nicotine Gum*) 2 mg PO Q2H PRN PRN Reason: CRAVING Last Admin: 12/17/18 18:19 Dose: 2 mg Nystatin (Nystatin Cream*) 1 applic TOPICAL DAILY [facility] Last Admin: 12/19/18 11:03 Dose: Not Given Pantoprazole Sodium (Protonix Tab*) 40 mg PO DAILY WITH MEAL [facility] Last Admin: 12/19/18 11:01 Dose: 40 mg Pharmacy Profile Note (Nicotine Patch Removal Note*) 1 note FOLLOW UP 2100 [facility] Last Admin: 12/18/18 21:02 Dose: Not Given Potassium Chloride (Klor Con Er Tab*) 20 meq PO BID [facility] Last Admin: 12/19/18 11:03 Dose: 20 meq Sertraline HCl (Zoloft*) 100 mg PO DAILY [facility] Last Admin: 12/19/18 11:01 Dose: 100 mg Triamcinolone Acetonide (Triamcinolone 0.5% Oint *) 1 applic TOPICAL DAILY [facility] Last Admin: 12/19/18 11:02 Dose: Not Given - Discharge Plan Discharge Plan: Consider Longer Term Tx
[2018-12-19] MEDS: Nicotine* 2MG (FRUIT FLAVOR) GUM PO PRN (19:17)
[2018-12-19] MEDS ORDERED: carBAMazepine TAB(*) 200 MG PO SCH (21:00)
[2018-12-19] MEDS: Melatonin 3 MG TAB PO SCH (21:31)
[2018-12-19] MEDS: ValACYclovir (*) 1 GM TAB PO SCH (21:36)
[2018-12-19] MEDS: Nicotine Patch Removal NOTE FOLLOW UP SCH (21:37)
[2018-12-20] MEDS: Acetaminophen TAB* 325 MG PO PRN ×2 (00:07→05:06)
[2018-12-20] MEDS: hydrOXYzine HCL TAB* 50 MG PO PRN ×2 (05:07→23:53)
[2018-12-20] MEDS: Potassium Chlor TAB* 20 MEQ TAB.ER PO SCH ×2 (09:38→21:14)
[2018-12-20] MEDS: Hydrochlorothiazide TAB* 25 MG PO SCH (09:38)
[2018-12-20] MEDS: clonazePAM TAB(*) 1 MG PO SCH ×2 (09:39→21:14)
[2018-12-20] MEDS: Docusate CAP* 100 MG PO SCH ×2 (09:39→21:14)
[2018-12-20] MEDS: Pantoprazole TAB * 40 MG TAB PO SCH (09:39)
[2018-12-20] MEDS: Ferrous Sulfate TAB* 325 MG PO SCH (09:40)
[2018-12-20] MEDS: Multivitamins/Minerals TAB PO SCH (09:40)
[2018-12-20] MEDS: Sertraline* 100 MG TAB PO SCH (09:41)
[2018-12-20] MEDS: Nystatin CREAM* 15 GM TUBE TOPICAL SCH (10:23)
[2018-12-20] MEDS: Triamcinolone 0.5% OINT * 15 GM TUBE TOPICAL SCH (10:23)
[2018-12-20] MEDS: Nicotine PATCH 7 MG/24 HR* PATCH TRANSDERM SCH (10:23)
[2018-12-20] MEDS: carBAMazepine TAB(*) 200 MG PO SCH ×2 (10:24→21:14)
[2018-12-20] MEDS: ValACYclovir (*) 1 GM TAB PO SCH ×2 (10:42→21:14)
[2018-12-20] MEDS: Melatonin 3 MG TAB PO SCH (21:14)
[2018-12-20] MEDS: Nicotine Patch Removal NOTE FOLLOW UP SCH (21:15)
[2018-12-20] MEDS: Al Hydrox/Mg Hydrox/Simet LIQ* 30 ML UDC PO PRN (23:54)
[2018-12-21] MEDS: Pantoprazole TAB * 40 MG TAB PO SCH (07:51)
[2018-12-21] MEDS: Nystatin CREAM* 15 GM TUBE TOPICAL SCH (07:53)
[2018-12-21] MEDS: Triamcinolone 0.5% OINT * 15 GM TUBE TOPICAL SCH (07:55)
[2018-12-21] MEDS: Multivitamins/Minerals TAB PO SCH (08:53)
[2018-12-21] MEDS: Docusate CAP* 100 MG PO SCH ×2 (08:53→21:22)
[2018-12-21] MEDS: clonazePAM TAB(*) 1 MG PO SCH ×2 (08:53→21:21)
[2018-12-21] MEDS: Ferrous Sulfate TAB* 325 MG PO SCH (08:53)
[2018-12-21] MEDS: Hydrochlorothiazide TAB* 25 MG PO SCH (08:53)
[2018-12-21] MEDS: Potassium Chlor TAB* 20 MEQ TAB.ER PO SCH ×2 (08:53→21:22)
[2018-12-21] MEDS: Sertraline* 100 MG TAB PO SCH (08:54)
[2018-12-21] MEDS: carBAMazepine TAB(*) 200 MG PO SCH ×2 (08:55→21:22)
[2018-12-21] MEDS: ValACYclovir (*) 1 GM TAB PO SCH ×2 (08:56→21:22)
[2018-12-21] MEDS: Nicotine PATCH 7 MG/24 HR* PATCH TRANSDERM SCH (08:56)
[2018-12-21] MEDS: hydrOXYzine HCL TAB* 50 MG PO PRN ×2 (14:15→23:29)
[2018-12-21] MEDS: Al Hydrox/Mg Hydrox/Simet LIQ* 30 ML UDC PO PRN (17:46)
[2018-12-21] MEDS: Melatonin 3 MG TAB PO SCH (21:22)
[2018-12-21] MEDS: Nicotine Patch Removal NOTE FOLLOW UP SCH (21:25)
[2018-12-22] MEDS: Acetaminophen TAB* 325 MG PO PRN ×3 (05:35→23:31)
[2018-12-22] MEDS: hydrOXYzine HCL TAB* 50 MG PO PRN ×2 (05:35→23:46)
[2018-12-22] MEDS: clonazePAM TAB(*) 1 MG PO SCH ×2 (08:40→21:01)
[2018-12-22] MEDS: Ferrous Sulfate TAB* 325 MG PO SCH (08:40)
[2018-12-22] MEDS: Hydrochlorothiazide TAB* 25 MG PO SCH (08:40)
[2018-12-22] MEDS: Multivitamins/Minerals TAB PO SCH (08:41)
[2018-12-22] MEDS: Docusate CAP* 100 MG PO SCH ×2 (08:41→21:01)
[2018-12-22] MEDS: Pantoprazole TAB * 40 MG TAB PO SCH (08:42)
[2018-12-22] MEDS: Potassium Chlor TAB* 20 MEQ TAB.ER PO SCH ×2 (08:42→21:01)
[2018-12-22] MEDS: Sertraline* 100 MG TAB PO SCH (08:42)
[2018-12-22] MEDS: Nicotine PATCH 7 MG/24 HR* PATCH TRANSDERM SCH (08:42)
[2018-12-22] MEDS: ValACYclovir (*) 1 GM TAB PO SCH ×2 (08:43→21:00)
[2018-12-22] MEDS: carBAMazepine TAB(*) 200 MG PO SCH ×2 (08:44→21:01)
[2018-12-22] MEDS: Nystatin CREAM* 15 GM TUBE TOPICAL SCH (08:45)
[2018-12-22] MEDS: Triamcinolone 0.5% OINT * 15 GM TUBE TOPICAL SCH (08:45)
--- NOTE | 2018-12-22 18:15 | PN ---
Subjective - Subjective Date of Service: 12/22/18 Service Type: [id number] Hosp care 15 min low complexity Subjective: Jessica is found standing by self with her back on the wall. Extremely guarded and suspicious. Doesn't answer questions due to suspiciousness and she does it is inappropriate. " don't like you because you smell like my grand pa " she says and then stops her conversation. Objective - General Observations Appearance: Disheveled, Malodorous, Unkempt Appears Stated Age: Yes Stature: WNL Posture: WNL Eye Contact: Intense Behavior/Activity: Slowed, Stereotyped - Interaction Observations Attitude Towards Examiner: Uncooperative, Evasive, Mistrustful Stated Mood: Dysphoric Affect: Blunted Speech Pattern/Tone: Unclear, Inappropriate, Delayed Thought Process: Coherent, Impoverished, Blocking Thought Content: Preoccupation/Ruminations, Paranoid Thought Process: Lethality: Paranoid Ideation Hallucination Type: Denies Delusion Type: Denies - Cognitive Function Orientation: A&O x 4 Level of Consciousness: Awake, Alert, Appropriate Cognition: Impaired Cognition Estimated Intelligence: Borderline Range Insight: Difficulty Acknowledging Presence of Psyciatric Problems Ability to Make Reasonable Decisions: Serverely Impaired - Medication Compliance Cooperative with Inpatient Medication Regimen: Yes - Group Participation Participates in Group Activities: No Assessment - Assessment Merits Inpatient Hospitalization: For Immediate Safety, For Stabilization, Pending Safe DC Plan Inpatient DSM-V Dx: F25.0 Clinical Impression: 32yo female with history of schizoaffective d/o who presented to ED with c/o AH and suicidal ideation of burning herself in her home. She continues to present as disorganized and unable to care for herself. She is medication compliant and starting to show some improvement but remains psychotically related. She merits hospitalization for immediate safety and stabilization. Plan - Plan Treatment Plan: Name: JESSICA BARRAGAN Birthdate: 1985 [id number] continue acute intensive psychiatric treatment. may decrease to q30min. may allow staff pass and computer use per RN discretion. given first dose of Invega Sustenna (234mg) IM on 12/01/18. Given second booster of Invega Sustenna on 12/05/18. Carbamazapine level of 3.5, increase carbamazapine to 400mg BID. continue other medications, as ordered. referred to [facility], awaiting correspondence Continued Medication Management: Continue Outpt Medication Medications: Current Medications Acetaminophen (Tylenol Tab*) 650 mg PO Q4H PRN PRN Reason: PAIN; OR TEMP >101 Last Admin: 12/22/18 17:46 Dose: 650 mg Al Hydrox/Mg Hydrox/Simethicone (Maalox Plus*) 30 ml PO Q4H PRN PRN Reason: INDIGESTION Last Admin: 12/21/18 17:46 Dose: 30 ml Carbamazepine (Tegretol Tab(*)) 400 mg PO BID [facility] Last Admin: 12/22/18 08:44 Dose: 400 mg Clonazepam (Klonopin Tab(*)) 1 mg PO BID [facility] Last Admin: 12/22/18 08:40 Dose: 1 mg Docusate Sodium (Colace Cap*) 100 mg PO BID [facility] Last Admin: 12/22/18 08:41 Dose: 100 mg Ferrous Sulfate (Ferrous Sulfate Tab*) 325 mg PO DAILY [facility] Last Admin: 12/22/18 08:40 Dose: 325 mg Fluphenazine HCl (Prolixin Tab*) 5 mg PO BID PRN PRN Reason: AGITATION/ANXIETY Last Admin: 12/11/18 16:45 Dose: 5 mg Hydrochlorothiazide (Hydrodiuril Tab*) 25 mg PO DAILY [facility] Last Admin: 12/22/18 08:40 Dose: 25 mg Hydroxyzine HCl (Atarax Tab*) 50 mg PO Q6H PRN PRN Reason: ANXIETY Last Admin: 12/22/18 05:35 Dose: 50 mg Lorazepam (Ativan Tab(*)) 1 mg PO Q6H PRN PRN Reason: agitation/anxiety Last Admin: 12/18/18 14:44 Dose: 1 mg Melatonin (Melatonin) 3 mg PO BEDTIME [facility] Last Admin: 12/21/18 21:22 Dose: 3 mg Miscellaneous (Ativan Pyxis Altamirano) 1 ea N/A .ATIVAN IV ALTAMIRANO PRN PRN Reason: PYXIS ALTAMIRANO Multivitamins/Minerals (Theragran/Minerals Tab*) 1 tab PO DAILY [facility] Last Admin: 12/22/18 08:41 Dose: 1 tab Nicotine (Nicotine Patch 7 Mg/24 Hr*) 1 patch TRANSDERM DAILY [facility] Last Admin: 12/22/18 08:42 Dose: Not Given Nicotine Polacrilex (Nicotine Gum*) 2 mg PO Q2H PRN PRN Reason: CRAVING Last Admin: 12/19/18 19:17 Dose: 2 mg Nystatin (Nystatin Cream*) 1 applic TOPICAL DAILY [facility] Last Admin: 12/22/18 08:45 Dose: 1 applic Pantoprazole Sodium (Protonix Tab*) 40 mg PO DAILY WITH MEAL [facility] Last Admin: 12/22/18 08:42 Dose: 40 mg Pharmacy Profile Note (Nicotine Patch Removal Note*) 1 note FOLLOW UP 2100 [facility] Last Admin: 12/21/18 21:25 Dose: Not Given Potassium Chloride (Klor Con Er Tab*) 20 meq PO BID [facility] Last Admin: 12/22/18 08:42 Dose: 20 meq Sertraline HCl (Zoloft*) 100 mg PO DAILY [facility] Last Admin: 12/22/18 08:42 Dose: 100 mg Triamcinolone Acetonide (Triamcinolone 0.5% Oint *) 1 applic TOPICAL DAILY [facility] Last Admin: 12/22/18 08:45 Dose: 1 applic Valacyclovir HCl (Valtrex 1 Gm(*)) 1 gm PO BID [facility]; Protocol Last Admin: 12/22/18 08:43 Dose: 1 gm - Discharge Plan Discharge Plan: Consider Longer Term Tx
[2018-12-22] MEDS: Melatonin 3 MG TAB PO SCH (21:01)
[2018-12-22] MEDS: Nicotine Patch Removal NOTE FOLLOW UP SCH (21:38)
[2018-12-22] MEDS: fluPHENAZine HCL TAB* 5 MG PO PRN (23:46)
[2018-12-23] MEDS: Potassium Chlor TAB* 20 MEQ TAB.ER PO SCH ×2 (08:35→20:05)
[2018-12-23] MEDS: Hydrochlorothiazide TAB* 25 MG PO SCH (08:35)
[2018-12-23] MEDS: Ferrous Sulfate TAB* 325 MG PO SCH (08:35)
[2018-12-23] MEDS: Multivitamins/Minerals TAB PO SCH (08:35)
[2018-12-23] MEDS: clonazePAM TAB(*) 1 MG PO SCH ×2 (08:35→20:05)
[2018-12-23] MEDS: Pantoprazole TAB * 40 MG TAB PO SCH (08:35)
[2018-12-23] MEDS: Sertraline* 100 MG TAB PO SCH (08:35)
[2018-12-23] MEDS: Docusate CAP* 100 MG PO SCH ×2 (08:35→20:04)
[2018-12-23] MEDS: Nicotine PATCH 7 MG/24 HR* PATCH TRANSDERM SCH (08:37)
[2018-12-23] MEDS: carBAMazepine TAB(*) 200 MG PO SCH ×2 (08:37→20:04)
[2018-12-23] MEDS: ValACYclovir (*) 1 GM TAB PO SCH ×2 (08:37→20:05)
[2018-12-23] MEDS: Nystatin CREAM* 15 GM TUBE TOPICAL SCH (08:38)
[2018-12-23] MEDS: Triamcinolone 0.5% OINT * 15 GM TUBE TOPICAL SCH ×2 (08:38→10:16)
[2018-12-23] MEDS: Acetaminophen TAB* 325 MG PO PRN (08:39)
--- NOTE | 2018-12-23 11:47 | PN ---
BSU: Group Therapy Note - Service Type Service Type: [id number] Group Psychotherapy - CBT Group Note: Eve was attentive and participatory in this morning's group, expressing frustration with her continued hospitalization, but denies still being mad at her provider, describing her initial reaction as negative transference. She engaged in conversation in an organized fashion, and described being psychotic when she was first admitted.
[2018-12-23] MEDS: hydrOXYzine HCL TAB* 50 MG PO PRN (13:54)
[2018-12-23] MEDS: Melatonin 3 MG TAB PO SCH (20:04)
[2018-12-23] MEDS: Nicotine Patch Removal NOTE FOLLOW UP SCH (20:04)
[2018-12-24] MEDS: hydrOXYzine HCL TAB* 50 MG PO PRN (02:20)
[2018-12-24] MEDS: Hydrochlorothiazide TAB* 25 MG PO SCH (08:19)
[2018-12-24] MEDS: Ferrous Sulfate TAB* 325 MG PO SCH (08:19)
[2018-12-24] MEDS: clonazePAM TAB(*) 1 MG PO SCH ×2 (08:19→20:07)
[2018-12-24] MEDS: carBAMazepine TAB(*) 200 MG PO SCH ×2 (08:20→20:05)
[2018-12-24] MEDS: Docusate CAP* 100 MG PO SCH ×2 (08:20→20:05)
[2018-12-24] MEDS: Potassium Chlor TAB* 20 MEQ TAB.ER PO SCH ×2 (08:20→20:05)
[2018-12-24] MEDS: Pantoprazole TAB * 40 MG TAB PO SCH (08:20)
[2018-12-24] MEDS: ValACYclovir (*) 1 GM TAB PO SCH ×2 (08:20→20:05)
[2018-12-24] MEDS: Multivitamins/Minerals TAB PO SCH (08:21)
[2018-12-24] MEDS: Sertraline* 100 MG TAB PO SCH (08:21)
[2018-12-24] MEDS: Nystatin CREAM* 15 GM TUBE TOPICAL SCH (14:27)
[2018-12-24] MEDS: Nicotine PATCH 7 MG/24 HR* PATCH TRANSDERM SCH (14:27)
[2018-12-24] MEDS: Triamcinolone 0.5% OINT * 15 GM TUBE TOPICAL SCH (14:28)
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
[2018-12-24] MEDS: Melatonin 3 MG TAB PO SCH (20:05)
[2018-12-24] MEDS: Nicotine Patch Removal NOTE FOLLOW UP SCH (20:11)
[2018-12-25] MEDS: Acetaminophen TAB* 325 MG PO PRN (06:38)
[2018-12-25] MEDS: ValACYclovir (*) 1 GM TAB PO SCH ×2 (08:27→20:20)
[2018-12-25] MEDS: Potassium Chlor TAB* 20 MEQ TAB.ER PO SCH ×2 (08:27→20:20)
[2018-12-25] MEDS: Ferrous Sulfate TAB* 325 MG PO SCH (08:27)
[2018-12-25] MEDS: Docusate CAP* 100 MG PO SCH ×2 (08:27→20:20)
[2018-12-25] MEDS: Hydrochlorothiazide TAB* 25 MG PO SCH (08:27)
[2018-12-25] MEDS: Sertraline* 100 MG TAB PO SCH (08:27)
[2018-12-25] MEDS: Pantoprazole TAB * 40 MG TAB PO SCH (08:27)
[2018-12-25] MEDS: Multivitamins/Minerals TAB PO SCH (08:27)
[2018-12-25] MEDS: carBAMazepine TAB(*) 200 MG PO SCH ×2 (08:28→20:21)
[2018-12-25] MEDS: Nystatin CREAM* 15 GM TUBE TOPICAL SCH (08:30)
[2018-12-25] MEDS: Triamcinolone 0.5% OINT * 15 GM TUBE TOPICAL SCH (08:30)
[2018-12-25] MEDS: Nicotine PATCH 7 MG/24 HR* PATCH TRANSDERM SCH (08:31)
[2018-12-25] MEDS: clonazePAM TAB(*) 1 MG PO SCH ×2 (08:31→20:21)
[2018-12-25] MEDS: Benztropine TAB* 1 MG PO SCH ×2 (14:07→20:19)
[2018-12-25] MEDS: Melatonin 3 MG TAB PO SCH (20:21)
[2018-12-25] MEDS: Nicotine Patch Removal NOTE FOLLOW UP SCH (20:22)
[2018-12-26] MEDS: Docusate CAP* 100 MG PO SCH ×2 (08:34→21:10)
[2018-12-26] MEDS: clonazePAM TAB(*) 1 MG PO SCH ×2 (08:34→21:11)
[2018-12-26] MEDS: Potassium Chlor TAB* 20 MEQ TAB.ER PO SCH ×2 (08:35→21:10)
[2018-12-26] MEDS: Pantoprazole TAB * 40 MG TAB PO SCH (08:35)
[2018-12-26] MEDS: Benztropine TAB* 1 MG PO SCH ×2 (08:35→21:11)
[2018-12-26] MEDS: Sertraline* 100 MG TAB PO SCH (08:35)
[2018-12-26] MEDS: Ferrous Sulfate TAB* 325 MG PO SCH (08:35)
[2018-12-26] MEDS: Nicotine PATCH 7 MG/24 HR* PATCH TRANSDERM SCH (08:36)
[2018-12-26] MEDS: Hydrochlorothiazide TAB* 25 MG PO SCH (08:36)
[2018-12-26] MEDS: Multivitamins/Minerals TAB PO SCH (08:36)
[2018-12-26] MEDS: ValACYclovir (*) 1 GM TAB PO SCH ×2 (08:37→21:11)
[2018-12-26] MEDS: Nystatin CREAM* 15 GM TUBE TOPICAL SCH (08:37)
[2018-12-26] MEDS: Triamcinolone 0.5% OINT * 15 GM TUBE TOPICAL SCH (08:37)
[2018-12-26 09:09] LABS: BUN/Creatinine Ratio 18.9 (8-20); Calcium 9.2 mg/dL (8.6-10.3); EGFR African American 161.8 (>60); EGFR Non-African American 133.7 (>60); Potassium 3.5 mmol/L (3.5-5.0)
[2018-12-26 09:21] LABS: Carbamazepine 3.6 mcg/mL (4.0-12.0)
[2018-12-26] MEDS: carBAMazepine TAB(*) 200 MG PO SCH ×2 (09:50→21:12)
[2018-12-26] MEDS ORDERED: PPD test dose* 5 TU/0.1 ML TEST (*USE PPD ORDER SET*) INTRADERM ONE (12:00)
[2018-12-26] MEDS: Melatonin 3 MG TAB PO SCH (21:13)
[2018-12-26] MEDS: Nicotine Patch Removal NOTE FOLLOW UP SCH (21:14)
[2018-12-26] MEDS: LORazepam TAB(*) 1 MG PO PRN (23:29)
[2018-12-26] MEDS: Acetaminophen TAB* 325 MG PO PRN (23:29)
[2018-12-27] MEDS: Ferrous Sulfate TAB* 325 MG PO SCH (08:12)
[2018-12-27] MEDS: Multivitamins/Minerals TAB PO SCH (08:12)
[2018-12-27] MEDS: Benztropine TAB* 1 MG PO SCH ×2 (08:12→21:16)
[2018-12-27] MEDS: Hydrochlorothiazide TAB* 25 MG PO SCH (08:12)
[2018-12-27] MEDS: Docusate CAP* 100 MG PO SCH ×2 (08:12→21:16)
[2018-12-27] MEDS: Potassium Chlor TAB* 20 MEQ TAB.ER PO SCH ×2 (08:13→21:16)
[2018-12-27] MEDS: Sertraline* 100 MG TAB PO SCH (08:13)
[2018-12-27] MEDS: Pantoprazole TAB * 40 MG TAB PO SCH (08:13)
[2018-12-27] MEDS: carBAMazepine TAB(*) 200 MG PO SCH ×2 (08:15→21:16)
[2018-12-27] MEDS: ValACYclovir (*) 1 GM TAB PO SCH ×2 (08:15→21:16)
[2018-12-27] MEDS: clonazePAM TAB(*) 1 MG PO SCH ×2 (08:16→21:16)
[2018-12-27] MEDS: Triamcinolone 0.5% OINT * 15 GM TUBE TOPICAL SCH (09:25)
[2018-12-27] MEDS: Nicotine PATCH 7 MG/24 HR* PATCH TRANSDERM SCH (09:25)
[2018-12-27] MEDS: Nystatin CREAM* 15 GM TUBE TOPICAL SCH (09:25)
[2018-12-27] MEDS: LORazepam TAB(*) 1 MG PO PRN (14:17)
[2018-12-27] MEDS: Acetaminophen TAB* 325 MG PO PRN (14:47)
[2018-12-27] MEDS: Nicotine Patch Removal NOTE FOLLOW UP SCH (19:43)
[2018-12-27] MEDS: Melatonin 3 MG TAB PO SCH (21:16)
[2018-12-28] MEDS: LORazepam TAB(*) 1 MG PO PRN ×2 (04:26→13:55)
[2018-12-28] MEDS: Nystatin CREAM* 15 GM TUBE TOPICAL SCH ×2 (06:29→09:07)
[2018-12-28] MEDS: Benztropine TAB* 1 MG PO SCH ×2 (08:28→21:03)
[2018-12-28] MEDS: Hydrochlorothiazide TAB* 25 MG PO SCH (08:28)
[2018-12-28] MEDS: clonazePAM TAB(*) 1 MG PO SCH ×2 (08:29→21:02)
[2018-12-28] MEDS: Docusate CAP* 100 MG PO SCH ×2 (08:29→21:03)
[2018-12-28] MEDS: Potassium Chlor TAB* 20 MEQ TAB.ER PO SCH ×2 (08:30→21:02)
[2018-12-28] MEDS: Pantoprazole TAB * 40 MG TAB PO SCH (08:30)
[2018-12-28] MEDS: ValACYclovir (*) 1 GM TAB PO SCH ×2 (08:30→21:14)
[2018-12-28] MEDS: Multivitamins/Minerals TAB PO SCH (08:31)
[2018-12-28] MEDS: Sertraline* 100 MG TAB PO SCH (08:31)
[2018-12-28] MEDS: Ferrous Sulfate TAB* 325 MG PO SCH (08:31)
[2018-12-28] MEDS: carBAMazepine TAB(*) 200 MG PO SCH ×2 (08:31→21:14)
[2018-12-28] MEDS: Nicotine PATCH 7 MG/24 HR* PATCH TRANSDERM SCH (08:33)
[2018-12-28] MEDS: Triamcinolone 0.5% OINT * 15 GM TUBE TOPICAL SCH (09:07)
[2018-12-28] MEDS ORDERED: PPD Reading NOTE* (*USE PPD ORDER SET*) ONE (12:00)
[2018-12-28] MEDS: Acetaminophen TAB* 325 MG PO PRN (21:01)
[2018-12-28] MEDS: Melatonin 3 MG TAB PO SCH (21:03)
[2018-12-28] MEDS: Nicotine Patch Removal NOTE FOLLOW UP SCH (21:12)
[2018-12-29] MEDS: Acetaminophen TAB* 325 MG PO PRN ×2 (01:31→18:58)
[2018-12-29] MEDS: LORazepam TAB(*) 1 MG PO PRN ×2 (02:01→13:35)
[2018-12-29] MEDS: Benztropine TAB* 1 MG PO SCH ×2 (08:57→20:02)
[2018-12-29] MEDS: Docusate CAP* 100 MG PO SCH ×2 (08:58→20:02)
[2018-12-29] MEDS: carBAMazepine TAB(*) 200 MG PO SCH ×2 (08:58→20:01)
[2018-12-29] MEDS: clonazePAM TAB(*) 1 MG PO SCH ×2 (08:58→20:03)
[2018-12-29] MEDS: Hydrochlorothiazide TAB* 25 MG PO SCH (08:58)
[2018-12-29] MEDS: Pantoprazole TAB * 40 MG TAB PO SCH (08:58)
[2018-12-29] MEDS: Potassium Chlor TAB* 20 MEQ TAB.ER PO SCH ×2 (08:59→20:02)
[2018-12-29] MEDS: Multivitamins/Minerals TAB PO SCH (08:59)
[2018-12-29] MEDS: Ferrous Sulfate TAB* 325 MG PO SCH (08:59)
[2018-12-29] MEDS ORDERED: Influenza VAC *QUAD* 2019-20* 0.5 ML SYRINGE IM ONE (09:00)
[2018-12-29] MEDS: Triamcinolone 0.5% OINT * 15 GM TUBE TOPICAL SCH (09:00)
[2018-12-29] MEDS: ValACYclovir (*) 1 GM TAB PO SCH ×2 (09:00→20:02)
[2018-12-29] MEDS: Sertraline* 100 MG TAB PO SCH (09:00)
[2018-12-29] MEDS: Nystatin CREAM* 15 GM TUBE TOPICAL SCH (09:00)
[2018-12-29] MEDS: Nicotine PATCH 7 MG/24 HR* PATCH TRANSDERM SCH (09:01)
--- NOTE | 2018-12-29 11:42 | PN ---
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 She requests to change provider as she does not want to go to a state hospital. Patient reminded of benefits of transfer and that the entire treatment team is continuing to move forward with the referral. Psychology Professor spoke with patient's mother for update. Annabel states that Jessica and her son visiting yesterday was beneficial for both of them. She reports that albeit a difficult option, longer stabilization is needed. Objective - General Observations Appearance: Well Groomed Stature: Overweight Posture: WNL Eye Contact: Intermittent Behavior/Activity: WNL, Agitated - Interaction Observations Attitude Towards Examiner: Defensive, Mistrustful Stated Mood: Irritable Affect: Restricted Speech Pattern/Tone: Pressured, Loud Volume Thought Process: Filght of Ideas, Circumstantial, Racing Perception: WNL Thought Content: Depressive, Paranoid, Grandiose Thought Process: Lethality: Paranoid Ideation Hallucination Type: None Delusion Type: None - Cognitive Function Orientation: A&O x 4 Level of Consciousness: Alert Cognition: WNL Estimated Intelligence: Normal Insight: Difficulty Acknowledging Presence of Psyciatric Problems Judgment Within Normal Limits: No Ability to Make Reasonable Decisions: Serverely Impaired - Medication Compliance Cooperative with Inpatient Medication Regimen: Yes - Group Participation Participates in Group Activities: Yes Assessment - Assessment Inpatient DSM-V Dx: F25.0 Clinical Impression: 32yo female with history of schizoaffective d/o who presented to ED with c/o AH and suicidal ideation of burning herself in her home. She continues to present as disorganized and unable to care for herself. She is medication compliant and starting to show some improvement but remains psychotically related. She merits hospitalization for immediate safety and stabilization. Plan - Plan Treatment Plan: Name: JESSICA BARRAGAN Birthdate: 1985 [id number] continue acute intensive psychiatric treatment. may decrease to q30min. may allow staff pass and computer use per RN discretion. given first dose of Invega Sustenna (234mg) IM on 12/01/18. Given second booster of Invega Sustenna on 12/05/18. Carbamazapine level of 3.5, increase carbamazapine to 400mg BID. continue other medications, as ordered. referred to [facility], awaiting correspondence Medications: Current Medications Acetaminophen (Tylenol Tab*) 650 mg PO Q4H PRN PRN Reason: PAIN; OR TEMP >101 Last Admin: 12/29/18 01:31 Dose: 650 mg Al Hydrox/Mg Hydrox/Simethicone (Maalox Plus*) 30 ml PO Q4H PRN PRN Reason: INDIGESTION Last Admin: 12/21/18 17:46 Dose: 30 ml Benztropine Mesylate (Cogentin Tab*) 1 mg PO BID [facility] Last Admin: 12/29/18 08:57 Dose: 1 mg Carbamazepine (Tegretol Tab(*)) 400 mg PO BID [facility] Last Admin: 12/29/18 08:58 Dose: 400 mg Clonazepam (Klonopin Tab(*)) 1 mg PO BID [facility] Last Admin: 12/29/18 08:58 Dose: 1 mg Docusate Sodium (Colace Cap*) 100 mg PO BID [facility] Last Admin: 12/29/18 08:58 Dose: 100 mg Ferrous Sulfate (Ferrous Sulfate Tab*) 325 mg PO DAILY [facility] Last Admin: 12/29/18 08:59 Dose: 325 mg Fluphenazine HCl (Prolixin Tab*) 5 mg PO BID PRN PRN Reason: AGITATION/ANXIETY Last Admin: 12/22/18 23:46 Dose: 5 mg Hydrochlorothiazide (Hydrodiuril Tab*) 25 mg PO DAILY [facility] Last Admin: 12/29/18 08:58 Dose: 25 mg Lorazepam (Ativan Tab(*)) 1 mg PO Q6H PRN PRN Reason: agitation/anxiety Last Admin: 12/29/18 02:01 Dose: 1 mg Melatonin (Melatonin) 3 mg PO BEDTIME [facility] Last Admin: 12/28/18 21:03 Dose: 3 mg Miscellaneous (Ativan Pyxis Altamirano) 1 ea N/A .ATIVAN IV ALTAMIRANO PRN PRN Reason: PYXIS ALTAMIRANO Multivitamins/Minerals (Theragran/Minerals Tab*) 1 tab PO DAILY [facility] Last Admin: 12/29/18 08:59 Dose: 1 tab Nicotine (Nicotine Patch 7 Mg/24 Hr*) 1 patch TRANSDERM DAILY [facility] Last Admin: 12/29/18 09:01 Dose: Not Given Nicotine Polacrilex (Nicotine Gum*) 2 mg PO Q2H PRN PRN Reason: CRAVING Last Admin: 12/19/18 19:17 Dose: 2 mg Nystatin (Nystatin Cream*) 1 applic TOPICAL DAILY [facility] Last Admin: 12/29/18 09:00 Dose: Not Given Pantoprazole Sodium (Protonix Tab*) 40 mg PO DAILY WITH MEAL [facility] Last Admin: 12/29/18 08:58 Dose: 40 mg Pharmacy Profile Note (Nicotine Patch Removal Note*) 1 note FOLLOW UP 2100 [facility] Last Admin: 12/28/18 21:12 Dose: Not Given Potassium Chloride (Klor Con Er Tab*) 20 meq PO BID [facility] Last Admin: 12/29/18 08:59 Dose: 20 meq Sertraline HCl (Zoloft*) 100 mg PO DAILY [facility] Last Admin: 12/29/18 09:00 Dose: 100 mg Triamcinolone Acetonide (Triamcinolone 0.5% Oint *) 1 applic TOPICAL DAILY [facility] Last Admin: 12/29/18 09:00 Dose: Not Given Valacyclovir HCl (Valtrex 1 Gm(*)) 1 gm PO BID [facility]; Protocol Last Admin: 12/29/18 09:00 Dose: 1 gm - Discharge Plan Discharge Plan: Consider Longer Term Tx
[2018-12-29] MEDS: Melatonin 3 MG TAB PO SCH (20:02)
[2018-12-29] MEDS: Nicotine Patch Removal NOTE FOLLOW UP SCH (20:03)
[2018-12-30] MEDS: LORazepam TAB(*) 1 MG PO PRN ×2 (03:29→13:13)
[2018-12-30] MEDS: ValACYclovir (*) 1 GM TAB PO SCH ×2 (08:28→20:08)
[2018-12-30] MEDS: Potassium Chlor TAB* 20 MEQ TAB.ER PO SCH ×2 (08:28→20:09)
[2018-12-30] MEDS: Acetaminophen TAB* 325 MG PO PRN ×2 (08:29→13:13)
[2018-12-30] MEDS: Docusate CAP* 100 MG PO SCH ×2 (08:29→20:09)
[2018-12-30] MEDS: Hydrochlorothiazide TAB* 25 MG PO SCH (08:29)
[2018-12-30] MEDS: Benztropine TAB* 1 MG PO SCH ×2 (08:30→20:10)
[2018-12-30] MEDS: Multivitamins/Minerals TAB PO SCH (08:30)
[2018-12-30] MEDS: carBAMazepine TAB(*) 200 MG PO SCH ×2 (08:31→20:10)
[2018-12-30] MEDS: Pantoprazole TAB * 40 MG TAB PO SCH (08:31)
[2018-12-30] MEDS: Ferrous Sulfate TAB* 325 MG PO SCH (08:31)
[2018-12-30] MEDS: Sertraline* 100 MG TAB PO SCH (08:32)
[2018-12-30] MEDS: clonazePAM TAB(*) 1 MG PO SCH ×2 (08:32→20:09)
[2018-12-30] MEDS: Nicotine PATCH 7 MG/24 HR* PATCH TRANSDERM SCH (08:33)
[2018-12-30] MEDS: Nystatin CREAM* 15 GM TUBE TOPICAL SCH (08:33)
[2018-12-30] MEDS: Triamcinolone 0.5% OINT * 15 GM TUBE TOPICAL SCH (08:48)
--- NOTE | 2018-12-30 11:33 | PN ---
BSU: Group Therapy Note - Service Type Service Type: [id number] Group Psychotherapy - Cognitive Behavioral Group Therapy ( CBT):Patient was attentive and participatory in CBT programming this morning, and remained in good behavioral control. Patient expressed positive insights regarding relevant treatment interventions and goals. Eve was very active in group this morning, expressing appreciation for the drawing instructor's influence and presence, as well as being able to relate to a peer. She was able to relate in an organized and empathic fashion with staff and peers.
[2018-12-30] MEDS: Melatonin 3 MG TAB PO SCH (20:09)
[2018-12-30] MEDS: Nicotine Patch Removal NOTE FOLLOW UP SCH (20:41)
[2018-12-31] MEDS: LORazepam TAB(*) 1 MG PO PRN ×2 (01:28→14:36)
[2018-12-31] MEDS: Acetaminophen TAB* 325 MG PO PRN ×2 (01:29→14:37)
[2018-12-31] MEDS: Pantoprazole TAB * 40 MG TAB PO SCH (10:11)
[2018-12-31] MEDS: Benztropine TAB* 1 MG PO SCH ×2 (10:11→21:07)
[2018-12-31] MEDS: carBAMazepine TAB(*) 200 MG PO SCH ×2 (10:13→21:07)
[2018-12-31] MEDS: clonazePAM TAB(*) 1 MG PO SCH ×2 (10:14→21:07)
[2018-12-31] MEDS: Docusate CAP* 100 MG PO SCH ×2 (10:14→21:07)
[2018-12-31] MEDS: Ferrous Sulfate TAB* 325 MG PO SCH (10:15)
[2018-12-31] MEDS: Hydrochlorothiazide TAB* 25 MG PO SCH (10:15)
[2018-12-31] MEDS: Nicotine PATCH 7 MG/24 HR* PATCH TRANSDERM SCH (10:16)
[2018-12-31] MEDS: Multivitamins/Minerals TAB PO SCH (10:16)
[2018-12-31] MEDS: Potassium Chlor TAB* 20 MEQ TAB.ER PO SCH ×2 (10:17→21:07)
[2018-12-31] MEDS: Sertraline* 100 MG TAB PO SCH (10:17)
[2018-12-31] MEDS: Nystatin CREAM* 15 GM TUBE TOPICAL SCH (10:18)
[2018-12-31] MEDS: ValACYclovir (*) 1 GM TAB PO SCH ×2 (10:20→21:07)
[2018-12-31] MEDS: Triamcinolone 0.5% OINT * 15 GM TUBE TOPICAL SCH (10:21)
--- NOTE | 2018-12-31 12:47 | PN ---
BSU: Group Therapy Note - Service Type Service Type: [id number] Group Psychotherapy - Cognitive Behavioral Group Therapy ( CBT):Patient was attentive and participatory in CBT programming this morning, and remained in good behavioral control. Patient expressed positive insights regarding relevant treatment interventions and goals.
--- NOTE | 2018-12-31 16:24 | PN ---
Subjective - Subjective Date of Service: 12/31/18 Service Type: [id number] Hosp care 15 min low complexity Subjective: Patient is pleasant and talkative. She asks questions regarding state referral and is receptive to answers. She reports feeling better and states in a jovial manner, "I don't hate you today!" Per staff, she has been calm and in behavioral control. Objective - General Observations Appearance: Well Groomed Stature: Overweight Posture: WNL Eye Contact: Average Behavior/Activity: WNL - Interaction Observations Attitude Towards Examiner: Cooperative Stated Mood: Euthymic Affect: Full Speech Pattern/Tone: Clear, Appropriate, Normal Volume Thought Process: Coherent, Goal Directed Perception: WNL Thought Content: Grandiose Hallucination Type: None Delusion Type: Grandeur - Cognitive Function Orientation: A&O x 4 Level of Consciousness: Alert Cognition: Impaired Attention/Concentration Estimated Intelligence: Normal Insight: Difficulty Acknowledging Presence of Psyciatric Problems Judgment Within Normal Limits: No Ability to Make Reasonable Decisions: Moderately Impaired - Medication Compliance Cooperative with Inpatient Medication Regimen: Yes - Group Participation Participates in Group Activities: Yes Assessment - Assessment Merits Inpatient Hospitalization: For Immediate Safety, For Stabilization Inpatient DSM-V Dx: F25.0 Clinical Impression: 32yo female with history of schizoaffective d/o who presented to ED with c/o AH and suicidal ideation of burning herself in her home. She continues to present as disorganized and unable to care for herself. She is medication compliant and starting to show some improvement but remains psychotically related. She merits hospitalization for immediate safety and stabilization. Plan - Plan Treatment Plan: Name: JESSICA BARRAGAN Birthdate: 1985 [id number] continue acute intensive psychiatric treatment. may decrease to q30min. may allow staff pass and computer use per RN discretion. given first dose of Invega Sustenna (234mg) IM on 12/01/18. Given second booster of Invega Sustenna on 12/05/18. Carbamazapine level of 3.5, increase carbamazapine to 400mg BID. continue other medications, as ordered. referred to [facility], awaiting correspondence Medications: Current Medications Acetaminophen (Tylenol Tab*) 650 mg PO Q4H PRN PRN Reason: PAIN; OR TEMP >101 Last Admin: 12/31/18 14:37 Dose: 650 mg Al Hydrox/Mg Hydrox/Simethicone (Maalox Plus*) 30 ml PO Q4H PRN PRN Reason: INDIGESTION Last Admin: 12/21/18 17:46 Dose: 30 ml Benztropine Mesylate (Cogentin Tab*) 1 mg PO BID [facility] Last Admin: 12/31/18 10:11 Dose: 1 mg Carbamazepine (Tegretol Tab(*)) 400 mg PO BID [facility] Last Admin: 12/31/18 10:13 Dose: 400 mg Clonazepam (Klonopin Tab(*)) 1 mg PO BID [facility] Last Admin: 12/31/18 10:14 Dose: 1 mg Docusate Sodium (Colace Cap*) 100 mg PO BID [facility] Last Admin: 12/31/18 10:14 Dose: 100 mg Ferrous Sulfate (Ferrous Sulfate Tab*) 325 mg PO DAILY [facility] Last Admin: 12/31/18 10:15 Dose: 325 mg Fluphenazine HCl (Prolixin Tab*) 5 mg PO BID PRN PRN Reason: AGITATION/ANXIETY Last Admin: 12/22/18 23:46 Dose: 5 mg Hydrochlorothiazide (Hydrodiuril Tab*) 25 mg PO DAILY [facility] Last Admin: 12/31/18 10:15 Dose: 25 mg Lorazepam (Ativan Tab(*)) 1 mg PO Q6H PRN PRN Reason: agitation/anxiety Last Admin: 12/31/18 14:36 Dose: 1 mg Melatonin (Melatonin) 3 mg PO BEDTIME [facility] Last Admin: 12/30/18 20:09 Dose: 3 mg Miscellaneous (Ativan Pyxis Altamirano) 1 ea N/A .ATIVAN IV ALTAMIRANO PRN PRN Reason: PYXIS ALTAMIRANO Multivitamins/Minerals (Theragran/Minerals Tab*) 1 tab PO DAILY [facility] Last Admin: 12/31/18 10:16 Dose: 1 tab Nicotine (Nicotine Patch 7 Mg/24 Hr*) 1 patch TRANSDERM DAILY [facility] Last Admin: 12/31/18 10:16 Dose: Not Given Nicotine Polacrilex (Nicotine Gum*) 2 mg PO Q2H PRN PRN Reason: CRAVING Last Admin: 12/19/18 19:17 Dose: 2 mg Nystatin (Nystatin Cream*) 1 applic TOPICAL DAILY [facility] Last Admin: 12/31/18 10:18 Dose: 1 applic Pantoprazole Sodium (Protonix Tab*) 40 mg PO DAILY WITH MEAL [facility] Last Admin: 12/31/18 10:11 Dose: 40 mg Pharmacy Profile Note (Nicotine Patch Removal Note*) 1 note FOLLOW UP 2100 [facility] Last Admin: 12/30/18 20:41 Dose: Not Given Potassium Chloride (Klor Con Er Tab*) 20 meq PO BID [facility] Last Admin: 12/31/18 10:17 Dose: 20 meq Sertraline HCl (Zoloft*) 100 mg PO DAILY [facility] Last Admin: 12/31/18 10:17 Dose: 100 mg Triamcinolone Acetonide (Triamcinolone 0.5% Oint *) 1 applic TOPICAL DAILY [facility] Last Admin: 12/31/18 10:21 Dose: Not Given Valacyclovir HCl (Valtrex 1 Gm(*)) 1 gm PO BID [facility]; Protocol Last Admin: 12/31/18 10:20 Dose: 1 gm - Discharge Plan Discharge Plan: Consider Longer Term Tx
--- NOTE | 2018-12-31 16:33 | PN ---
BSU: Group Therapy Note - Service Type Service Type: [id number] Group Psychotherapy - Medication Education Group: Patient was attentive and participatory in group, and remained in good behavioral control. Patient expressed positive insights regarding relevant treatment interventions. Patient stated understanding of material discussed and had appropriate questions.
[2018-12-31] MEDS: Nicotine Patch Removal NOTE FOLLOW UP SCH (19:21)
[2018-12-31] MEDS: Melatonin 3 MG TAB PO SCH (21:07)
[2019-01-01] MEDS: LORazepam TAB(*) 1 MG PO PRN ×2 (00:14→13:49)
[2019-01-01] MEDS: Acetaminophen TAB* 325 MG PO PRN ×4 (00:14→21:59)
[2019-01-01] MEDS: Benztropine TAB* 1 MG PO SCH ×2 (09:59→20:46)
[2019-01-01] MEDS: Multivitamins/Minerals TAB PO SCH (09:59)
[2019-01-01] MEDS: Hydrochlorothiazide TAB* 25 MG PO SCH (09:59)
[2019-01-01] MEDS: Ferrous Sulfate TAB* 325 MG PO SCH (10:00)
[2019-01-01] MEDS: clonazePAM TAB(*) 1 MG PO SCH ×2 (10:00→20:46)
[2019-01-01] MEDS: Potassium Chlor TAB* 20 MEQ TAB.ER PO SCH ×2 (10:00→20:47)
[2019-01-01] MEDS: Docusate CAP* 100 MG PO SCH ×2 (10:00→20:46)
[2019-01-01] MEDS: Pantoprazole TAB * 40 MG TAB PO SCH (10:00)
[2019-01-01] MEDS: Sertraline* 100 MG TAB PO SCH (10:00)
[2019-01-01] MEDS: Nicotine PATCH 7 MG/24 HR* PATCH TRANSDERM SCH (10:02)
[2019-01-01] MEDS: ValACYclovir (*) 1 GM TAB PO SCH ×2 (10:02→20:49)
[2019-01-01] MEDS: carBAMazepine TAB(*) 200 MG PO SCH ×2 (10:02→20:51)
[2019-01-01] MEDS: Triamcinolone 0.5% OINT * 15 GM TUBE TOPICAL SCH (10:03)
[2019-01-01] MEDS: Nystatin CREAM* 15 GM TUBE TOPICAL SCH (10:03)
--- NOTE | 2019-01-01 11:31 | PN ---
BSU: Group Therapy Note - Service Type Service Type: [id number] Group Psychotherapy - Cognitive Behavioral Group Therapy ( CBT):Patient was attentive and participatory in CBT programming this morning, and remained in good behavioral control. Patient expressed positive insights regarding relevant treatment interventions and goals.
[2019-01-01] MEDS: Magic M W2 Ben/Maal/Nyst/Lido* 240 ML MOUTHWASH (alt formulation) SWISH SPIT PRN ×3 (12:25→21:17)
[2019-01-01] MEDS: Melatonin 3 MG TAB PO SCH (20:48)
[2019-01-01] MEDS: Nicotine Patch Removal NOTE FOLLOW UP SCH (20:48)
[2019-01-02] MEDS: Acetaminophen TAB* 325 MG PO PRN ×2 (01:49→21:59)
[2019-01-02] MEDS: LORazepam TAB(*) 1 MG PO PRN ×2 (01:51→13:05)
[2019-01-02] MEDS: Magic M W2 Ben/Maal/Nyst/Lido* 240 ML MOUTHWASH (alt formulation) SWISH SPIT PRN ×4 (01:52→21:57)
[2019-01-02] MEDS: Nystatin CREAM* 15 GM TUBE TOPICAL SCH (07:40)
[2019-01-02] MEDS: Triamcinolone 0.5% OINT * 15 GM TUBE TOPICAL SCH (07:40)
[2019-01-02] MEDS: ValACYclovir (*) 1 GM TAB PO SCH ×2 (08:26→21:29)
[2019-01-02] MEDS: Multivitamins/Minerals TAB PO SCH (08:27)
[2019-01-02] MEDS: Potassium Chlor TAB* 20 MEQ TAB.ER PO SCH ×2 (08:27→21:28)
[2019-01-02] MEDS: Ferrous Sulfate TAB* 325 MG PO SCH (08:27)
[2019-01-02] MEDS: Sertraline* 100 MG TAB PO SCH (08:28)
[2019-01-02] MEDS: Benztropine TAB* 1 MG PO SCH ×2 (08:28→21:29)
[2019-01-02] MEDS: Pantoprazole TAB * 40 MG TAB PO SCH (08:28)
[2019-01-02] MEDS: Docusate CAP* 100 MG PO SCH ×2 (08:29→21:30)
[2019-01-02] MEDS: carBAMazepine TAB(*) 200 MG PO SCH ×2 (08:29→21:30)
[2019-01-02] MEDS: Hydrochlorothiazide TAB* 25 MG PO SCH (08:29)
[2019-01-02] MEDS: Nicotine PATCH 7 MG/24 HR* PATCH TRANSDERM SCH (08:30)
[2019-01-02] MEDS: clonazePAM TAB(*) 1 MG PO SCH ×2 (08:39→21:29)
--- NOTE | 2019-01-02 11:41 | PN ---
BSU: Group Therapy Note - Service Type Service Type: [id number] Group Psychotherapy - Cognitive Behavioral Group Therapy ( CBT):Patient was attentive and participatory in CBT programming this morning, and remained in good behavioral control. Patient expressed positive insights regarding relevant treatment interventions and goals.
[2019-01-02] MEDS ORDERED: Paliperidone SUSTENNA* 156 MG/1 ML IM ONE (13:00)
--- NOTE | 2019-01-02 13:11 | PN ---
Subjective - Subjective Date of Service: 01/05/19 Service Type: [id number] Hosp care 15 min low complexity Subjective: Patient reported anxiety in regards to being due for long acting injectable. Propulsion Systems Engineer phoned pharmacy to verify Invega Sustenna 156mg availability. 1645: Propulsion Systems Engineer spoke with director of inpatient services at [facility], Aly Youngjohny. He states [facility] is specific about rationale for releasing state referrals and that an extended wait list is not an appropriate rationale. Propulsion Systems Engineer reported that patient is opposed to [facility] due to previous employment. Aly reported this is an acceptable rationale and will check with HR about patient's history, then communicate with insurance underwriter on Saturday. Objective - General Observations Appearance: Well Groomed Appears Stated Age: Yes Stature: Overweight Posture: WNL Eye Contact: Average Behavior/Activity: WNL - Interaction Observations Attitude Towards Examiner: Cooperative Stated Mood: Euthymic Affect: Full Speech Pattern/Tone: Clear, Appropriate, Normal Volume Thought Process: Circumstantial Perception: Reexperiencing Thought Content: Paranoid, Grandiose Thought Process: Lethality: Paranoid Ideation Hallucination Type: Denies Delusion Type: Denies - Cognitive Function Orientation: A&O x 4 Level of Consciousness: Alert Cognition: Impaired Attention/Concentration Estimated Intelligence: Normal Insight: Difficulty Acknowledging Presence of Psyciatric Problems Judgment Within Normal Limits: No Ability to Make Reasonable Decisions: Mildly Impaired - Medication Compliance Cooperative with Inpatient Medication Regimen: Yes - Group Participation Participates in Group Activities: Yes Assessment - Assessment Merits Inpatient Hospitalization: For Immediate Safety, For Stabilization, For Discharge Planning, Pending Safe DC Plan Inpatient DSM-V Dx: F25.0 Clinical Impression: 32yo female with history of schizoaffective d/o who presented to ED with c/o AH and suicidal ideation of burning herself in her home. She continues to present as disorganized and unable to care for herself. She is medication compliant and starting to show some improvement but remains psychotically related. She merits hospitalization for immediate safety and stabilization. Plan - Plan Treatment Plan: Name: JESSICA BARRAGAN Birthdate: 1985 [id number] continue acute intensive psychiatric treatment. may decrease to q30min. may allow staff pass and computer use per RN discretion. continue Invega sustenna IM monthly- received 156mg IM 01/02/19. continue other medications, as ordered. referred to [facility] [place], awaiting correspondence Continued Medication Management: Consider Medication Medications: Current Medications Acetaminophen (Tylenol Tab*) 650 mg PO Q4H PRN PRN Reason: PAIN; OR TEMP >101 Last Admin: 01/02/19 01:49 Dose: 650 mg Al Hydrox/Mg Hydrox/Simethicone (Maalox Plus*) 30 ml PO Q4H PRN PRN Reason: INDIGESTION Last Admin: 12/21/18 17:46 Dose: 30 ml Benztropine Mesylate (Cogentin Tab*) 1 mg PO BID [facility] Last Admin: 01/02/19 08:28 Dose: 1 mg Carbamazepine (Tegretol Tab(*)) 400 mg PO BID [facility] Last Admin: 01/02/19 08:29 Dose: 400 mg Clonazepam (Klonopin Tab(*)) 1 mg PO BID [facility] Last Admin: 01/02/19 08:39 Dose: 1 mg Docusate Sodium (Colace Cap*) 100 mg PO BID [facility] Last Admin: 01/02/19 08:29 Dose: 100 mg Ferrous Sulfate (Ferrous Sulfate Tab*) 325 mg PO DAILY [facility] Last Admin: 01/02/19 08:27 Dose: 325 mg Fluphenazine HCl (Prolixin Tab*) 5 mg PO BID PRN PRN Reason: AGITATION/ANXIETY Last Admin: 12/22/18 23:46 Dose: 5 mg Hydrochlorothiazide (Hydrodiuril Tab*) 25 mg PO DAILY [facility] Last Admin: 01/02/19 08:29 Dose: 25 mg Lorazepam (Ativan Tab(*)) 1 mg PO Q6H PRN PRN Reason: agitation/anxiety Last Admin: 01/02/19 13:05 Dose: 1 mg Melatonin (Melatonin) 3 mg PO BEDTIME [facility] Last Admin: 01/01/19 20:48 Dose: 3 mg Miscellaneous (Ativan Pyxis Altamirano) 1 ea N/A .ATIVAN IV ALTAMIRANO PRN PRN Reason: PYXIS ALTAMIRANO Multi-Ingredient Mouthwash/Gargle (Magic M W2 Adolfo/Maal/Nyst/Lido*) 5 ml SWISH SPIT QID PRN PRN Reason: PAIN - MILD Last Admin: 01/02/19 08:35 Dose: 5 ml Multivitamins/Minerals (Theragran/Minerals Tab*) 1 tab PO DAILY [facility] Last Admin: 01/02/19 08:27 Dose: 1 tab Nicotine (Nicotine Patch 7 Mg/24 Hr*) 1 patch TRANSDERM DAILY [facility] Last Admin: 01/02/19 08:30 Dose: Not Given Nicotine Polacrilex (Nicotine Gum*) 2 mg PO Q2H PRN PRN Reason: CRAVING Last Admin: 12/19/18 19:17 Dose: 2 mg Nystatin (Nystatin Cream*) 1 applic TOPICAL DAILY [facility] Last Admin: 01/02/19 07:40 Dose: 1 applic Pantoprazole Sodium (Protonix Tab*) 40 mg PO DAILY WITH MEAL [facility] Last Admin: 01/02/19 08:28 Dose: 40 mg Pharmacy Profile Note (Nicotine Patch Removal Note*) 1 note FOLLOW UP 2100 [facility] Last Admin: 01/01/19 20:48 Dose: 1 note Potassium Chloride (Klor Con Er Tab*) 20 meq PO BID [facility] Last Admin: 01/02/19 08:27 Dose: 20 meq Sertraline HCl (Zoloft*) 100 mg PO DAILY [facility] Last Admin: 01/02/19 08:28 Dose: 100 mg Triamcinolone Acetonide (Triamcinolone 0.5% Oint *) 1 applic TOPICAL DAILY [facility] Last Admin: 01/02/19 07:40 Dose: 1 applic Valacyclovir HCl (Valtrex 1 Gm(*)) 1 gm PO BID [facility]; Protocol Last Admin: 01/02/19 08:26 Dose: 1 gm - Discharge Plan Discharge Plan: Consider Longer Term Tx
[2019-01-02] MEDS: Melatonin 3 MG TAB PO SCH (21:29)
[2019-01-02] MEDS: Nicotine Patch Removal NOTE FOLLOW UP SCH (21:34)
[2019-01-03] MEDS: Magic M W2 Ben/Maal/Nyst/Lido* 240 ML MOUTHWASH (alt formulation) SWISH SPIT PRN ×4 (04:25→20:23)
[2019-01-03] MEDS: LORazepam TAB(*) 1 MG PO PRN ×2 (04:25→13:56)
[2019-01-03] MEDS: Acetaminophen TAB* 325 MG PO PRN ×2 (04:25→17:56)
[2019-01-03] MEDS: Sertraline* 100 MG TAB PO SCH (09:03)
[2019-01-03] MEDS: Potassium Chlor TAB* 20 MEQ TAB.ER PO SCH ×2 (09:03→21:25)
[2019-01-03] MEDS: ValACYclovir (*) 1 GM TAB PO SCH ×2 (09:03→21:25)
[2019-01-03] MEDS: clonazePAM TAB(*) 1 MG PO SCH ×2 (09:04→21:26)
[2019-01-03] MEDS: Multivitamins/Minerals TAB PO SCH (09:04)
[2019-01-03] MEDS: Ferrous Sulfate TAB* 325 MG PO SCH (09:04)
[2019-01-03] MEDS: Pantoprazole TAB * 40 MG TAB PO SCH (09:04)
[2019-01-03] MEDS: Docusate CAP* 100 MG PO SCH ×2 (09:04→21:25)
[2019-01-03] MEDS: Hydrochlorothiazide TAB* 25 MG PO SCH (09:04)
[2019-01-03] MEDS: Benztropine TAB* 1 MG PO SCH ×2 (09:04→21:25)
[2019-01-03] MEDS: carBAMazepine TAB(*) 200 MG PO SCH ×2 (09:05→21:25)
[2019-01-03] MEDS: Triamcinolone 0.5% OINT * 15 GM TUBE TOPICAL SCH (09:05)
[2019-01-03] MEDS: Nicotine PATCH 7 MG/24 HR* PATCH TRANSDERM SCH (09:05)
[2019-01-03] MEDS: Nystatin CREAM* 15 GM TUBE TOPICAL SCH (09:05)
[2019-01-03] MEDS: Nicotine Patch Removal NOTE FOLLOW UP SCH (21:25)
[2019-01-03] MEDS: Melatonin 3 MG TAB PO SCH (21:25)
[2019-01-04] MEDS: LORazepam TAB(*) 1 MG PO PRN ×2 (06:30→14:14)
[2019-01-04] MEDS: Acetaminophen TAB* 325 MG PO PRN ×3 (06:30→21:18)
[2019-01-04] MEDS: Triamcinolone 0.5% OINT * 15 GM TUBE TOPICAL SCH (07:33)
[2019-01-04] MEDS: Nystatin CREAM* 15 GM TUBE TOPICAL SCH (07:33)
[2019-01-04] MEDS: Benztropine TAB* 1 MG PO SCH ×2 (09:33→21:59)
[2019-01-04] MEDS: clonazePAM TAB(*) 1 MG PO SCH ×2 (09:34→21:59)
[2019-01-04] MEDS: ValACYclovir (*) 1 GM TAB PO SCH ×2 (09:34→21:59)
[2019-01-04] MEDS: Hydrochlorothiazide TAB* 25 MG PO SCH (09:34)
[2019-01-04] MEDS: Potassium Chlor TAB* 20 MEQ TAB.ER PO SCH ×2 (09:35→21:59)
[2019-01-04] MEDS: carBAMazepine TAB(*) 200 MG PO SCH ×2 (09:35→21:59)
[2019-01-04] MEDS: Sertraline* 100 MG TAB PO SCH (09:35)
[2019-01-04] MEDS: Nicotine PATCH 7 MG/24 HR* PATCH TRANSDERM SCH (09:36)
[2019-01-04] MEDS: Ferrous Sulfate TAB* 325 MG PO SCH (09:36)
[2019-01-04] MEDS: Multivitamins/Minerals TAB PO SCH (09:36)
[2019-01-04] MEDS: Docusate CAP* 100 MG PO SCH ×2 (09:36→21:59)
[2019-01-04] MEDS: Pantoprazole TAB * 40 MG TAB PO SCH (09:36)
[2019-01-04] MEDS: Magic M W2 Ben/Maal/Nyst/Lido* 240 ML MOUTHWASH (alt formulation) SWISH SPIT PRN ×2 (12:33→21:12)
[2019-01-04] MEDS: Melatonin 3 MG TAB PO SCH (21:59)
[2019-01-04] MEDS: Nicotine Patch Removal NOTE FOLLOW UP SCH (22:00)
[2019-01-05] MEDS: Acetaminophen TAB* 325 MG PO PRN ×3 (00:05→18:29)
[2019-01-05] MEDS: LORazepam TAB(*) 1 MG PO PRN ×2 (00:05→12:56)
[2019-01-05] MEDS: Nystatin CREAM* 15 GM TUBE TOPICAL SCH (07:42)
[2019-01-05] MEDS: Triamcinolone 0.5% OINT * 15 GM TUBE TOPICAL SCH (07:42)
[2019-01-05] MEDS: Docusate CAP* 100 MG PO SCH ×2 (09:47→20:58)
[2019-01-05] MEDS: Ferrous Sulfate TAB* 325 MG PO SCH (09:47)
[2019-01-05] MEDS: Multivitamins/Minerals TAB PO SCH (09:47)
[2019-01-05] MEDS: Hydrochlorothiazide TAB* 25 MG PO SCH (09:47)
[2019-01-05] MEDS: ValACYclovir (*) 1 GM TAB PO SCH ×2 (09:48→21:00)
[2019-01-05] MEDS: Pantoprazole TAB * 40 MG TAB PO SCH (09:48)
[2019-01-05] MEDS: clonazePAM TAB(*) 1 MG PO SCH ×2 (09:48→20:59)
[2019-01-05] MEDS: Benztropine TAB* 1 MG PO SCH ×2 (09:48→20:58)
[2019-01-05] MEDS: Potassium Chlor TAB* 20 MEQ TAB.ER PO SCH ×2 (09:49→21:00)
[2019-01-05] MEDS: Sertraline* 100 MG TAB PO SCH (09:49)
[2019-01-05] MEDS: carBAMazepine TAB(*) 200 MG PO SCH ×2 (09:49→20:59)
[2019-01-05] MEDS: Nicotine PATCH 7 MG/24 HR* PATCH TRANSDERM SCH (09:50)
[2019-01-05] MEDS: Magic M W2 Ben/Maal/Nyst/Lido* 240 ML MOUTHWASH (alt formulation) SWISH SPIT PRN ×3 (10:02→14:42)
--- NOTE | 2019-01-05 16:12 | PN ---
Subjective - Subjective Date of Service: 01/05/19 Service Type: [id number] Hosp care 35 min high complexity Subjective: Eve presents as well-related and euthymic. Her mother and son visited this weekend. Patient reports desire to return home and return to work. Phone call with patient's mother, Annabel, and Roya Dawson [facility]. Notified of conversations with director of inpatient services at [facility] and [facility] efforts to have referral released to [facility]. Annabel reports feeling torn between wanting her daughter to return home and wanting her to have resources that are available at a [facility]. Providers validated Annabel's stance. Objective - General Observations Appearance: Well Groomed Stature: Overweight Posture: WNL Eye Contact: Average Behavior/Activity: WNL - Interaction Observations Attitude Towards Examiner: Cooperative Stated Mood: Euthymic Affect: Full Speech Pattern/Tone: Clear, Appropriate, Normal Volume Thought Process: Coherent, Goal Directed Perception: WNL Thought Content: WNL Hallucination Type: None Delusion Type: None - Cognitive Function Orientation: A&O x 4 Level of Consciousness: Alert Cognition: WNL Estimated Intelligence: Normal Judgment Within Normal Limits: No Ability to Make Reasonable Decisions: Moderately Impaired - Medication Compliance Cooperative with Inpatient Medication Regimen: Yes - Group Participation Participates in Group Activities: Yes Assessment - Assessment Merits Inpatient Hospitalization: For Immediate Safety, For Stabilization, Consolidate Improvements Inpatient DSM-V Dx: F25.0 Clinical Impression: 32yo female with history of schizoaffective d/o who presented to ED with c/o AH and suicidal ideation of burning herself in her home. She continues to present as disorganized and unable to care for herself. She is medication compliant and starting to show some improvement. She merits hospitalization for immediate safety and stabilization. Plan - Plan Treatment Plan: Name: EVE BARRAGAN Birthdate: 1985 [id number] continue acute intensive psychiatric treatment. may decrease to q30min. may allow staff pass and computer use per RN discretion. continue Invega sustenna IM monthly- received 156mg IM 01/02/19. continue other medications, as ordered. referred to [facility], awaiting correspondence Medications: Current Medications Acetaminophen (Tylenol Tab*) 650 mg PO Q4H PRN PRN Reason: PAIN; OR TEMP >101 Last Admin: 01/05/19 14:40 Dose: 650 mg Al Hydrox/Mg Hydrox/Simethicone (Maalox Plus*) 30 ml PO Q4H PRN PRN Reason: INDIGESTION Last Admin: 12/21/18 17:46 Dose: 30 ml Benztropine Mesylate (Cogentin Tab*) 1 mg PO BID [facility] Last Admin: 01/05/19 09:48 Dose: 1 mg Carbamazepine (Tegretol Tab(*)) 400 mg PO BID [facility] Last Admin: 01/05/19 09:49 Dose: 400 mg Clonazepam (Klonopin Tab(*)) 1 mg PO BID [facility] Last Admin: 01/05/19 09:48 Dose: 1 mg Docusate Sodium (Colace Cap*) 100 mg PO BID [facility] Last Admin: 01/05/19 09:47 Dose: 100 mg Ferrous Sulfate (Ferrous Sulfate Tab*) 325 mg PO DAILY [facility] Last Admin: 01/05/19 09:47 Dose: 325 mg Fluphenazine HCl (Prolixin Tab*) 5 mg PO BID PRN PRN Reason: AGITATION/ANXIETY Last Admin: 12/22/18 23:46 Dose: 5 mg Hydrochlorothiazide (Hydrodiuril Tab*) 25 mg PO DAILY [facility] Last Admin: 01/05/19 09:47 Dose: 25 mg Lorazepam (Ativan Tab(*)) 1 mg PO Q6H PRN PRN Reason: agitation/anxiety Last Admin: 01/05/19 12:56 Dose: 1 mg Melatonin (Melatonin) 3 mg PO BEDTIME [facility] Last Admin: 01/04/19 21:59 Dose: 3 mg Miscellaneous (Ativan Pyxis Altamirano) 1 ea N/A .ATIVAN IV ALTAMIRANO PRN PRN Reason: PYXIS ALTAMIRANO Multi-Ingredient Mouthwash/Gargle (Magic M W2 Adolfo/Maal/Nyst/Lido*) 5 ml SWISH SPIT QID PRN PRN Reason: PAIN - MILD Last Admin: 01/05/19 14:42 Dose: 5 ml Multivitamins/Minerals (Theragran/Minerals Tab*) 1 tab PO DAILY [facility] Last Admin: 01/05/19 09:47 Dose: 1 tab Nicotine (Nicotine Patch 7 Mg/24 Hr*) 1 patch TRANSDERM DAILY [facility] Last Admin: 01/05/19 09:50 Dose: Not Given Nicotine Polacrilex (Nicotine Gum*) 2 mg PO Q2H PRN PRN Reason: CRAVING Last Admin: 12/19/18 19:17 Dose: 2 mg Nystatin (Nystatin Cream*) 1 applic TOPICAL DAILY [facility] Last Admin: 01/05/19 07:42 Dose: 1 applic Pantoprazole Sodium (Protonix Tab*) 40 mg PO DAILY WITH MEAL [facility] Last Admin: 01/05/19 09:48 Dose: 40 mg Pharmacy Profile Note (Nicotine Patch Removal Note*) 1 note FOLLOW UP 2100 [facility] Last Admin: 01/04/19 22:00 Dose: Not Given Potassium Chloride (Klor Con Er Tab*) 20 meq PO BID [facility] Last Admin: 01/05/19 09:49 Dose: 20 meq Sertraline HCl (Zoloft*) 100 mg PO DAILY [facility] Last Admin: 01/05/19 09:49 Dose: 100 mg Triamcinolone Acetonide (Triamcinolone 0.5% Oint *) 1 applic TOPICAL DAILY [facility] Last Admin: 01/05/19 07:42 Dose: 1 applic Valacyclovir HCl (Valtrex 1 Gm(*)) 1 gm PO BID [facility]; Protocol Last Admin: 01/05/19 09:48 Dose: 1 gm - Discharge Plan Discharge Plan: Consider Longer Term Tx
[2019-01-05] MEDS: Melatonin 3 MG TAB PO SCH (21:00)
[2019-01-05] MEDS: Nicotine Patch Removal NOTE FOLLOW UP SCH (21:01)
[2019-01-06] MEDS: LORazepam TAB(*) 1 MG PO PRN ×2 (02:19→12:40)
[2019-01-06] MEDS: Acetaminophen TAB* 325 MG PO PRN ×3 (02:22→20:03)
[2019-01-06] MEDS: Sertraline* 100 MG TAB PO SCH (07:56)
[2019-01-06] MEDS: clonazePAM TAB(*) 1 MG PO SCH ×2 (07:56→20:04)
[2019-01-06] MEDS: Pantoprazole TAB * 40 MG TAB PO SCH (07:56)
[2019-01-06] MEDS: Benztropine TAB* 1 MG PO SCH ×2 (07:56→20:04)
[2019-01-06] MEDS: Potassium Chlor TAB* 20 MEQ TAB.ER PO SCH ×2 (07:56→20:04)
[2019-01-06] MEDS: Ferrous Sulfate TAB* 325 MG PO SCH (07:56)
[2019-01-06] MEDS: Docusate CAP* 100 MG PO SCH ×2 (07:56→20:04)
[2019-01-06] MEDS: Hydrochlorothiazide TAB* 25 MG PO SCH (07:56)
[2019-01-06] MEDS: Multivitamins/Minerals TAB PO SCH (07:56)
[2019-01-06] MEDS: Nicotine PATCH 7 MG/24 HR* PATCH TRANSDERM SCH (07:57)
[2019-01-06] MEDS: Nystatin CREAM* 15 GM TUBE TOPICAL SCH (07:57)
[2019-01-06] MEDS: ValACYclovir (*) 1 GM TAB PO SCH ×2 (07:57→20:04)
[2019-01-06] MEDS: carBAMazepine TAB(*) 200 MG PO SCH ×2 (07:57→20:04)
[2019-01-06] MEDS: Triamcinolone 0.5% OINT * 15 GM TUBE TOPICAL SCH (07:57)
[2019-01-06] MEDS: Magic M W2 Ben/Maal/Nyst/Lido* 240 ML MOUTHWASH (alt formulation) SWISH SPIT PRN ×3 (08:36→23:04)
[2019-01-06 11:29] LABS: Rapid Strep Molecular Negative (Negative)
[2019-01-06] MEDS ORDERED: hydrOXYzine HCL TAB* 50 MG ONE (13:31)
[2019-01-06] MEDS ORDERED: hydrOXYzine HCL TAB* 50 MG PO PRN (13:33)
[2019-01-06] MEDS ORDERED: hydrOXYzine HCL TAB* 50 MG PO ONE (14:00)
[2019-01-06] MEDS: Melatonin 3 MG TAB PO SCH (20:04)
[2019-01-06] MEDS: Nicotine Patch Removal NOTE FOLLOW UP SCH (20:05)
[2019-01-07] MEDS: LORazepam TAB(*) 1 MG PO PRN ×2 (00:16→14:01)
[2019-01-07] MEDS: Acetaminophen TAB* 325 MG PO PRN ×2 (00:16→17:42)
[2019-01-07] MEDS: Nicotine* 2MG (FRUIT FLAVOR) GUM PO PRN ×6 (08:02→21:45)
[2019-01-07] MEDS: Nicotine PATCH 7 MG/24 HR* PATCH TRANSDERM SCH (08:02)
[2019-01-07] MEDS: Potassium Chlor TAB* 20 MEQ TAB.ER PO SCH ×2 (08:05→21:41)
[2019-01-07] MEDS: Multivitamins/Minerals TAB PO SCH (08:06)
[2019-01-07] MEDS: Benztropine TAB* 1 MG PO SCH ×2 (08:07→21:42)
[2019-01-07] MEDS: Docusate CAP* 100 MG PO SCH ×2 (08:07→21:41)
[2019-01-07] MEDS: Ferrous Sulfate TAB* 325 MG PO SCH (08:07)
[2019-01-07] MEDS: Sertraline* 100 MG TAB PO SCH (08:08)
[2019-01-07] MEDS: clonazePAM TAB(*) 1 MG PO SCH ×2 (08:08→21:41)
[2019-01-07] MEDS: Hydrochlorothiazide TAB* 25 MG PO SCH (08:08)
[2019-01-07] MEDS: Pantoprazole TAB * 40 MG TAB PO SCH (08:08)
[2019-01-07] MEDS: carBAMazepine TAB(*) 200 MG PO SCH ×2 (08:09→21:41)
[2019-01-07] MEDS: ValACYclovir (*) 1 GM TAB PO SCH ×2 (08:11→21:42)
[2019-01-07] MEDS: Nystatin CREAM* 15 GM TUBE TOPICAL SCH ×2 (08:12→08:14)
[2019-01-07] MEDS: Triamcinolone 0.5% OINT * 15 GM TUBE TOPICAL SCH ×2 (08:12→08:15)
--- NOTE | 2019-01-07 12:22 | PN ---
Subjective - Subjective Date of Service: 01/07/19 Subjective: Jessica relates that she was upset this morning when thinking that her suicide attempt would have caused her 10-year-old son to grow up without a mother. She expresses frustration about not knowing if she will go to a [facility] or discharge home. She denies SI/HI or A/VH and she contracts for safety. She denies side effects from prescribed medications. Per staff, she has been adherent to unit's routines. Objective - General Observations Appearance: Neat Appears Stated Age: Yes Stature: Overweight Posture: WNL Eye Contact: Avoidant Behavior/Activity: WNL - Interaction Observations Attitude Towards Examiner: Defensive Stated Mood: Dysphoric Affect: Restricted Speech Pattern/Tone: Clear, Appropriate Thought Process: Coherent, Circumstantial Perception: WNL Thought Content: WNL Hallucination Type: None Delusion Type: None - Cognitive Function Orientation: A&O x 4 Level of Consciousness: Awake Cognition: WNL Estimated Intelligence: Normal Judgment Within Normal Limits: Yes - Medication Compliance Cooperative with Inpatient Medication Regimen: Yes - Group Participation Participates in Group Activities: Yes Assessment - Assessment Merits Inpatient Hospitalization: Consolidate Improvements, For Discharge Planning, Pending Safe DC Plan Inpatient DSM-V Dx: F25.0 Clinical Impression: 32yo female with history of schizoaffective d/o who presented to ED with c/o AH and suicidal ideation of burning herself in her home. She continues to present as disorganized and unable to care for herself. She is medication compliant and starting to show some improvement. She merits hospitalization for immediate safety and stabilization. She is stabilizing in this structured setting. Tolerating prescribed medications. Denying suicidality and torres for safety. Plan - Plan Treatment Plan: Name: JESSICA BARRAGAN Birthdate: 1985 [id number] continue acute intensive psychiatric treatment. may decrease to q30min. may allow staff pass and computer use per RN discretion. continue Invega sustenna IM monthly- received 156mg IM 01/02/19. continue other medications, as ordered. referred to [facility], awaiting correspondence Medications: Current Medications Acetaminophen (Tylenol Tab*) 650 mg PO Q4H PRN PRN Reason: PAIN; OR TEMP >101 Last Admin: 01/07/19 00:16 Dose: 650 mg Al Hydrox/Mg Hydrox/Simethicone (Maalox Plus*) 30 ml PO Q4H PRN PRN Reason: INDIGESTION Last Admin: 12/21/18 17:46 Dose: 30 ml Benztropine Mesylate (Cogentin Tab*) 1 mg PO BID [facility] Last Admin: 01/07/19 08:07 Dose: 1 mg Carbamazepine (Tegretol Tab(*)) 400 mg PO BID [facility] Last Admin: 01/07/19 08:09 Dose: 400 mg Clonazepam (Klonopin Tab(*)) 1 mg PO BID [facility] Last Admin: 01/07/19 08:08 Dose: 1 mg Docusate Sodium (Colace Cap*) 100 mg PO BID [facility] Last Admin: 01/07/19 08:07 Dose: 100 mg Ferrous Sulfate (Ferrous Sulfate Tab*) 325 mg PO DAILY [facility] Last Admin: 01/07/19 08:07 Dose: 325 mg Hydrochlorothiazide (Hydrodiuril Tab*) 25 mg PO DAILY [facility] Last Admin: 01/07/19 08:08 Dose: 25 mg Hydroxyzine HCl (Atarax Tab*) 50 mg PO Q6H PRN PRN Reason: anxiety Lorazepam (Ativan Tab(*)) 1 mg PO Q6H PRN PRN Reason: agitation/anxiety Last Admin: 01/07/19 00:16 Dose: 1 mg Melatonin (Melatonin) 3 mg PO BEDTIME [facility] Last Admin: 01/06/19 20:04 Dose: 3 mg Miscellaneous (Ativan Pyxis Altamirano) 1 ea N/A .ATIVAN IV ALTAMIRANO PRN PRN Reason: PYXIS ALTAMIRANO Multi-Ingredient Mouthwash/Gargle (Magic M W2 Adolfo/Maal/Nyst/Lido*) 5 ml SWISH SPIT QID PRN PRN Reason: PAIN - MILD Last Admin: 01/06/19 23:04 Dose: 5 ml Multivitamins/Minerals (Theragran/Minerals Tab*) 1 tab PO DAILY [facility] Last Admin: 01/07/19 08:06 Dose: 1 tab Nicotine (Nicotine Patch 7 Mg/24 Hr*) 1 patch TRANSDERM DAILY [facility] Last Admin: 01/07/19 08:02 Dose: 1 patch Nicotine Polacrilex (Nicotine Gum*) 2 mg PO Q2H PRN PRN Reason: CRAVING Last Admin: 01/07/19 10:11 Dose: 2 mg Nystatin (Nystatin Cream*) 1 applic TOPICAL DAILY [facility] Last Admin: 01/07/19 08:14 Dose: 1 applic Pantoprazole Sodium (Protonix Tab*) 40 mg PO DAILY WITH MEAL [facility] Last Admin: 01/07/19 08:08 Dose: 40 mg Pharmacy Profile Note (Nicotine Patch Removal Note*) 1 note FOLLOW UP 2100 [facility] Last Admin: 01/06/19 20:05 Dose: 1 note Potassium Chloride (Klor Con Er Tab*) 20 meq PO BID [facility] Last Admin: 01/07/19 08:05 Dose: 20 meq Sertraline HCl (Zoloft*) 100 mg PO DAILY [facility] Last Admin: 01/07/19 08:08 Dose: 100 mg Triamcinolone Acetonide (Triamcinolone 0.5% Oint *) 1 applic TOPICAL DAILY [facility] Last Admin: 01/07/19 08:15 Dose: 1 applic Valacyclovir HCl (Valtrex 1 Gm(*)) 1 gm PO BID [facility]; Protocol Last Admin: 01/07/19 08:11 Dose: 1 gm - Discharge Plan Discharge Plan: Consider Longer Term Tx Outpatient Program: TBD
[2019-01-07] MEDS: Melatonin 3 MG TAB PO SCH (21:42)
[2019-01-07] MEDS: Nicotine Patch Removal NOTE FOLLOW UP SCH (21:49)
[2019-01-08] MEDS: Acetaminophen TAB* 325 MG PO PRN ×3 (05:02→18:35)
[2019-01-08] MEDS: LORazepam TAB(*) 1 MG PO PRN ×2 (05:04→13:04)
[2019-01-08] MEDS: Hydrochlorothiazide TAB* 25 MG PO SCH (08:06)
[2019-01-08] MEDS: Pantoprazole TAB * 40 MG TAB PO SCH (08:07)
[2019-01-08] MEDS: clonazePAM TAB(*) 1 MG PO SCH ×2 (08:07→20:55)
[2019-01-08] MEDS: Docusate CAP* 100 MG PO SCH ×2 (08:07→20:55)
[2019-01-08] MEDS: Benztropine TAB* 1 MG PO SCH ×2 (08:07→20:59)
[2019-01-08] MEDS: Ferrous Sulfate TAB* 325 MG PO SCH (08:07)
[2019-01-08] MEDS: Multivitamins/Minerals TAB PO SCH (08:08)
[2019-01-08] MEDS: ValACYclovir (*) 1 GM TAB PO SCH ×2 (08:08→20:54)
[2019-01-08] MEDS: carBAMazepine TAB(*) 200 MG PO SCH ×2 (08:08→20:55)
[2019-01-08] MEDS: Sertraline* 100 MG TAB PO SCH (08:09)
[2019-01-08] MEDS: Potassium Chlor TAB* 20 MEQ TAB.ER PO SCH ×2 (08:09→20:55)
[2019-01-08] MEDS: Nicotine PATCH 7 MG/24 HR* PATCH TRANSDERM SCH (08:11)
[2019-01-08] MEDS: Nicotine* 2MG (FRUIT FLAVOR) GUM PO PRN ×4 (08:27→18:35)
[2019-01-08] MEDS: Magic M W2 Ben/Maal/Nyst/Lido* 240 ML MOUTHWASH (alt formulation) SWISH SPIT PRN ×3 (08:28→18:35)
[2019-01-08] MEDS: Triamcinolone 0.5% OINT * 15 GM TUBE TOPICAL SCH (12:34)
[2019-01-08] MEDS: Nystatin CREAM* 15 GM TUBE TOPICAL SCH (12:34)
[2019-01-08] MEDS: Melatonin 3 MG TAB PO SCH (20:55)
[2019-01-08] MEDS: Nicotine Patch Removal NOTE FOLLOW UP SCH (21:01)
[2019-01-09] MEDS: Acetaminophen TAB* 325 MG PO PRN (04:35)
[2019-01-09] MEDS: LORazepam TAB(*) 1 MG PO PRN ×2 (04:36→13:57)
[2019-01-09] MEDS: Magic M W2 Ben/Maal/Nyst/Lido* 240 ML MOUTHWASH (alt formulation) SWISH SPIT PRN ×3 (04:38→12:19)
[2019-01-09] MEDS: clonazePAM TAB(*) 1 MG PO SCH ×2 (08:28→20:13)
[2019-01-09] MEDS: Nicotine PATCH 7 MG/24 HR* PATCH TRANSDERM SCH (08:29)
[2019-01-09] MEDS: Sertraline* 100 MG TAB PO SCH (08:29)
[2019-01-09] MEDS: Ferrous Sulfate TAB* 325 MG PO SCH (08:29)
[2019-01-09] MEDS: Hydrochlorothiazide TAB* 25 MG PO SCH (08:29)
[2019-01-09] MEDS: Nystatin CREAM* 15 GM TUBE TOPICAL SCH (08:29)
[2019-01-09] MEDS: Benztropine TAB* 1 MG PO SCH (08:29)
[2019-01-09] MEDS: Pantoprazole TAB * 40 MG TAB PO SCH (08:29)
[2019-01-09] MEDS: Multivitamins/Minerals TAB PO SCH (08:29)
[2019-01-09] MEDS: Triamcinolone 0.5% OINT * 15 GM TUBE TOPICAL SCH (08:29)
[2019-01-09] MEDS: Docusate CAP* 100 MG PO SCH ×2 (08:29→20:14)
[2019-01-09] MEDS: Potassium Chlor TAB* 20 MEQ TAB.ER PO SCH (08:29)
[2019-01-09] MEDS: ValACYclovir (*) 1 GM TAB PO SCH (08:30)
[2019-01-09] MEDS: Nicotine* 2MG (FRUIT FLAVOR) GUM PO PRN ×6 (08:34→20:19)
[2019-01-09] MEDS: carBAMazepine TAB(*) 200 MG PO SCH ×2 (09:54→20:13)
--- NOTE | 2019-01-09 10:42 | PN ---
Subjective - Subjective Date of Service: 01/09/19 Service Type: [id number] Hosp care 25 min moderate complexity Subjective: Patient is euthymic and well-related. She has been in behavioral control and actively participating in programming. Patient's referral to [facility] was released by [facility] and sent to [facility]. According to [facility], patient's legal status will be soon and [facility] would need to pursue legal retention. Patient does not meet criteria for continued involuntary status. She wishes to be discharged and has demonstrated capacity to make informed decisions. Server Cashier informed patient's mother, Annabel of above. She is agreeable to patient being discharged to home. Her family is not available for discharge until this weekend. Patient notified of plan to discharge this weekend. She expressed much agreement with this plan. Objective - General Observations Appearance: Well Groomed Stature: Overweight Posture: WNL Eye Contact: Average Behavior/Activity: WNL - Interaction Observations Attitude Towards Examiner: Cooperative Stated Mood: Euthymic Affect: Bright Speech Pattern/Tone: Clear, Appropriate, Normal Volume Thought Process: Coherent, Goal Directed Perception: WNL Thought Content: WNL Hallucination Type: None Delusion Type: None - Cognitive Function Orientation: A&O x 4 Level of Consciousness: Alert Cognition: WNL Estimated Intelligence: Normal Insight: WNL Judgment Within Normal Limits: Yes - Medication Compliance Cooperative with Inpatient Medication Regimen: Yes - Group Participation Participates in Group Activities: Yes Assessment - Assessment Merits Inpatient Hospitalization: For Immediate Safety, For Discharge Planning, Pending Safe DC Plan Inpatient DSM-V Dx: F25.0 Clinical Impression: 32yo female with history of schizoaffective d/o who presented to ED with c/o AH and suicidal ideation of burning herself in her home. She continues to present as disorganized and unable to care for herself. She is medication compliant and starting to show some improvement. She is stabilizing in this structured setting. Tolerating prescribed medications. Denying suicidality and torres for safety. Plan - Plan Treatment Plan: Name: JESSICA BARRAGAN Birthdate: 1985 [id number] continue acute intensive psychiatric treatment. may decrease to q30min. may allow staff pass and computer use per RN discretion. continue Invega sustenna IM monthly- received 156mg IM 01/02/19. next injection due by 02/06/19. continue other medications, as ordered. patient no longer meets criteria for [facility] discharge to home with family on 01/11/19 Medications: Current Medications Acetaminophen (Tylenol Tab*) 650 mg PO Q4H PRN PRN Reason: PAIN; OR TEMP >101 Last Admin: 01/09/19 04:35 Dose: 650 mg Al Hydrox/Mg Hydrox/Simethicone (Maalox Plus*) 30 ml PO Q4H PRN PRN Reason: INDIGESTION Last Admin: 12/21/18 17:46 Dose: 30 ml Benztropine Mesylate (Cogentin Tab*) 1 mg PO BID [facility] Last Admin: 01/09/19 08:29 Dose: 1 mg Carbamazepine (Tegretol Tab(*)) 400 mg PO BID [facility] Last Admin: 01/09/19 09:54 Dose: 400 mg Clonazepam (Klonopin Tab(*)) 1 mg PO BID [facility] Last Admin: 01/09/19 08:28 Dose: 1 mg Docusate Sodium (Colace Cap*) 100 mg PO BID [facility] Last Admin: 01/09/19 08:29 Dose: 100 mg Ferrous Sulfate (Ferrous Sulfate Tab*) 325 mg PO DAILY [facility] Last Admin: 01/09/19 08:29 Dose: 325 mg Hydrochlorothiazide (Hydrodiuril Tab*) 25 mg PO DAILY [facility] Last Admin: 01/09/19 08:29 Dose: 25 mg Hydroxyzine HCl (Atarax Tab*) 50 mg PO Q6H PRN PRN Reason: anxiety Lorazepam (Ativan Tab(*)) 1 mg PO Q6H PRN PRN Reason: agitation/anxiety Last Admin: 01/09/19 04:36 Dose: 1 mg Melatonin (Melatonin) 3 mg PO BEDTIME [facility] Last Admin: 01/08/19 20:55 Dose: 3 mg Miscellaneous (Ativan Pyxis Altamirano) 1 ea N/A .ATIVAN IV ALTAMIRANO PRN PRN Reason: PYXIS ALTAMIRANO Multi-Ingredient Mouthwash/Gargle (Magic M W2 Adolfo/Maal/Nyst/Lido*) 5 ml SWISH SPIT QID PRN PRN Reason: PAIN - MILD Last Admin: 01/09/19 08:30 Dose: 5 ml Multivitamins/Minerals (Theragran/Minerals Tab*) 1 tab PO DAILY [facility] Last Admin: 01/09/19 08:29 Dose: 1 tab Nicotine (Nicotine Patch 7 Mg/24 Hr*) 1 patch TRANSDERM DAILY [facility] Last Admin: 01/09/19 08:29 Dose: 1 patch Nicotine Polacrilex (Nicotine Gum*) 2 mg PO Q2H PRN PRN Reason: CRAVING Last Admin: 01/09/19 08:34 Dose: 2 mg Nystatin (Nystatin Cream*) 1 applic TOPICAL DAILY [facility] Last Admin: 01/09/19 08:29 Dose: Not Given Pantoprazole Sodium (Protonix Tab*) 40 mg PO DAILY WITH MEAL [facility] Last Admin: 01/09/19 08:29 Dose: 40 mg Pharmacy Profile Note (Nicotine Patch Removal Note*) 1 note FOLLOW UP 2100 [facility] Last Admin: 01/08/19 21:01 Dose: 1 note Potassium Chloride (Klor Con Er Tab*) 20 meq PO BID [facility] Last Admin: 01/09/19 08:29 Dose: 20 meq Sertraline HCl (Zoloft*) 100 mg PO DAILY [facility] Last Admin: 01/09/19 08:29 Dose: 100 mg Triamcinolone Acetonide (Triamcinolone 0.5% Oint *) 1 applic TOPICAL DAILY [facility] Last Admin: 01/09/19 08:29 Dose: Not Given Valacyclovir HCl (Valtrex 1 Gm(*)) 1 gm PO BID [facility]; Protocol Last Admin: 01/09/19 08:30 Dose: 1 gm - Discharge Plan Discharge Plan: Outpatient Follow Up Outpatient Program: [facility]
[2019-01-09] MEDS: Melatonin 3 MG TAB PO SCH (20:13)
[2019-01-09] MEDS: ValACYclovir (*) 1 GM TAB PO PRN (20:14)
[2019-01-09] MEDS: Nicotine Patch Removal NOTE FOLLOW UP SCH (20:44)
[2019-01-10] MEDS: LORazepam TAB(*) 1 MG PO PRN ×2 (01:04→14:19)
[2019-01-10] MEDS: Acetaminophen TAB* 325 MG PO PRN ×2 (01:05→14:22)
[2019-01-10] MEDS: Magic M W2 Ben/Maal/Nyst/Lido* 240 ML MOUTHWASH (alt formulation) SWISH SPIT PRN ×3 (06:50→14:21)
[2019-01-10] MEDS: Pantoprazole TAB * 40 MG TAB PO SCH (08:31)
[2019-01-10] MEDS: Sertraline* 100 MG TAB PO SCH (08:31)
[2019-01-10] MEDS: Ferrous Sulfate TAB* 325 MG PO SCH (08:32)
[2019-01-10] MEDS: clonazePAM TAB(*) 1 MG PO SCH ×2 (08:33→20:57)
[2019-01-10] MEDS: Multivitamins/Minerals TAB PO SCH (08:33)
[2019-01-10] MEDS: Hydrochlorothiazide TAB* 25 MG PO SCH (08:34)
[2019-01-10] MEDS: Docusate CAP* 100 MG PO SCH ×2 (08:34→20:56)
[2019-01-10] MEDS: carBAMazepine TAB(*) 200 MG PO SCH ×2 (08:34→20:56)
[2019-01-10] MEDS: Nicotine PATCH 7 MG/24 HR* PATCH TRANSDERM SCH (08:35)
[2019-01-10] MEDS: ValACYclovir (*) 1 GM TAB PO PRN ×2 (08:37→21:00)
[2019-01-10] MEDS: Nicotine* 2MG (FRUIT FLAVOR) GUM PO PRN ×3 (08:42→15:08)
[2019-01-10] MEDS: Triamcinolone 0.5% OINT * 15 GM TUBE TOPICAL SCH (08:53)
[2019-01-10] MEDS: Nystatin CREAM* 15 GM TUBE TOPICAL SCH (08:53)
[2019-01-10] MEDS ORDERED: Influenza VAC *QUAD* 2019-20* 0.5 ML SYRINGE IM ONE (15:00)
[2019-01-10] MEDS: Melatonin 3 MG TAB PO SCH (20:56)
[2019-01-10] MEDS: Nicotine Patch Removal NOTE FOLLOW UP SCH (20:58)
[2019-01-11] MEDS: Acetaminophen TAB* 325 MG PO PRN ×2 (00:56→13:24)
[2019-01-11] MEDS: LORazepam TAB(*) 1 MG PO PRN ×2 (00:56→13:24)
[2019-01-11] MEDS: Ferrous Sulfate TAB* 325 MG PO SCH (08:21)
[2019-01-11] MEDS: Sertraline* 100 MG TAB PO SCH (08:21)
[2019-01-11] MEDS: Multivitamins/Minerals TAB PO SCH (08:21)
[2019-01-11] MEDS: Hydrochlorothiazide TAB* 25 MG PO SCH (08:21)
[2019-01-11] MEDS: Pantoprazole TAB * 40 MG TAB PO SCH (08:21)
[2019-01-11] MEDS: clonazePAM TAB(*) 1 MG PO SCH (08:21)
[2019-01-11] MEDS: Docusate CAP* 100 MG PO SCH (08:21)
[2019-01-11] MEDS: Triamcinolone 0.5% OINT * 15 GM TUBE TOPICAL SCH (08:22)
[2019-01-11] MEDS: Nicotine PATCH 7 MG/24 HR* PATCH TRANSDERM SCH (08:22)
[2019-01-11] MEDS ORDERED: Influenza VAC *QUAD* 2019-20* 0.5 ML SYRINGE IM ONE (09:00)
[2019-01-11] MEDS: carBAMazepine TAB(*) 200 MG PO SCH (09:07)
[2019-01-11] MEDS: Nystatin CREAM* 15 GM TUBE TOPICAL SCH (09:08)
[2019-01-11 10:56] VITALS: BP 110/72
[2019-01-11] MEDS: Magic M W2 Ben/Maal/Nyst/Lido* 240 ML MOUTHWASH (alt formulation) SWISH SPIT PRN (13:24)
--- NOTE | 2019-01-11 16:35 | DCNOTE ---
Subjective - Subjective Discharge Date: 01/11/19 Subjective: Eve maintains her readiness for discharge. She affirms she feels safe and good about being alive. She denies emotional pain or unmanageable anxiety. She avidly denies having thoughts of suicide or urges to self-harm. She denies problems with medications, and says she does not see obstacles to routine care / therapy, or emergency help if needed again. Objective - General Observations Appearance: Neat Appears Stated Age: Yes Stature: Overweight Posture: WNL Eye Contact: Average Behavior/Activity: WNL - Interaction Observations Attitude Towards Examiner: Cooperative Stated Mood: Euthymic Affect: Full Speech Pattern/Tone: Clear, Appropriate Thought Process: Coherent, Goal Directed Perception: WNL Thought Content: WNL Hallucination Type: None Delusion Type: None - Cognitive Function Orientation: A&O x 4 Level of Consciousness: Awake, Alert Estimated Intelligence: Borderline Range Judgment Within Normal Limits: Yes - Medication Compliance Cooperative with Inpatient Medication Regimen: Yes - Group Participation Participates in Group Activities: Yes DC Assessment - Assessment Clinical Impression: 32yo female with history of schizoaffective d/o who presented to ED with c/o AH and suicidal ideation of burning herself in her home. She continues to present as disorganized and unable to care for herself. She is medication compliant and starting to show some improvement. She is stabilizing in this structured setting. Tolerating prescribed medications. Denying suicidality and torres for safety. CONDITION AT DISCHARGE: At time of discharge, Eve was psychiatrically stable, free of suicidal/homicidal thoughts, she contracted for safety and she was future-oriented. Merits Inpatient Hospitalization: No Clear for Discharge: Adequate Clinical Respons, Acceptable Safety Profile, Low Utility of Inpt Care Inpatient DSM-V Dx: F25.0 Discharge Planning - Discharge Planning Discharge Plan: Outpatient Follow Up Recommendations for Continuing Care: Medication Management, Psychotherapy Discharge Planning: Prescriptions provided for discharge [X] Yes [] No Follow up care details as per social work arrangements. Patient response to discharge plan: [X] eager for discharge [] agreeable with discharge plan [] ambivalent about discharge [] disagrees with discharge today
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
== END 2019-01-11 13:57 | disposition home or self-care (01) | DRG 885 ==
LOC: ED 19:56 → BSU 11-23 01:20
PROVIDERS: ADMIT Psychiatry & Neurology Psychiatry; ATTEND Psychiatry & Neurology Psychiatry
PROC: GZHZZZZ Group Psychotherapy (ICD-10-PCS; principal; 2018-12-09)
DX: F25.0 Schizoaffective disorder, bipolar type (principal); R45.851 Suicidal ideations; N39.0 Urinary tract infection, site not specified; I10 Essential (primary) hypertension; F41.9 Anxiety disorder, unspecified; F17.210 Nicotine dependence, cigarettes, uncomplicated; E66.3 Overweight; D50.9 Iron deficiency anemia, unspecified; E87.6 Hypokalemia; Z62.810 Personal history of physical and sexual abuse in childhood; F50.9 Eating disorder, unspecified; Z98.84 Bariatric surgery status; Z82.49 Family history of ischemic heart disease and other diseases of the circulatory system; Z83.3 Family history of diabetes mellitus; Z88.6 Allergy status to analgesic agent; Z68.31 Body mass index [BMI] 31.0-31.9, adult; Z88.8 Allergy status to other drugs, medicaments and biological substances; Z81.8 Family history of other mental and behavioral disorders; Z23 Encounter for immunization; Z86.19 Personal history of other infectious and parasitic diseases
CPT/HCPCS: 36415; 70551; 80048; 80053; 80061; 80156; 80307; 80320; 80329; 81003; 81015; 83036; 84443; 84702; 85025; 85027; 87086; 87088; 87651; 90686; 90853; 93005; 99222; 99231; 99232; 99233; 99238; 99285; A9270-GY; G0480; J2060; J2426

== ENCOUNTER 2020-08-29 13:31 | Inpatient (IN) ==
[2020-08-29] MEDS ORDERED: Diazepam INJ CARPUJECT 5 MG/ML IM ONE (14:16)
[2020-08-29] MEDS ORDERED: Nicotine PATCH 14 MG/24 HR PATCH TRANSDERM ONE (14:16)
[2020-08-29] MEDS ORDERED: Nicotine PATCH 21 MG/24 HR PATCH ONE (14:25)
[2020-08-29] MEDS ORDERED: Nicotine PATCH 21 MG/24 HR PATCH TRANSDERM ONE (14:28)
[2020-08-29 14:37] LABS: ALT 16 U/L (7-52); AST 20 U/L (13-39); Albumin 4.3 g/dL (3.2-5.2); Albumin/Globulin Ratio 1.2 (1-3); Alkaline Phosphatase 105 U/L (34-104); Anion Gap 8 mmol/L (2-11); Blood Urea Nitrogen 10 mg/dL (6-24); CO2 Carbon Dioxide 24 mmol/L (22-32); Calcium 9.3 mg/dL (8.6-10.3); Chloride 100 mmol/L (101-111); EGFR African American 131.7 (>60); EGFR Non-African American 108.8 (>60); Globulin 3.5 g/dL (2-4); Glucose 106 mg/dL (70-100); HCG Pregnancy < 0.60 mIU/mL; Potassium 3.5 mmol/L (3.5-5.0); Sodium 132 mmol/L (135-145); Total Protein 7.8 g/dL (6.4-8.9)
[2020-08-29 14:49] LABS: ABS Basophils 0.1 10^3/ul (0-0.2); ABS Eosinophils 0.3 10^3/ul (0-0.6); ABS Monocytes 0.4 10^3/ul (0-0.8); ABS Neutrophils 4.2 10^3/ul (1.5-7.7); Eosinophil % 4.2 %; Hematocrit 38 % (35-47); Hemoglobin 12.5 g/dL (12.0-16.0); Lymphocyte % 28.5 %; Mean Corpuscular HGB Conc 33 g/dL (31-36); Mean Corpuscular Hemoglobin 26 pg (27-31); Mean Corpuscular Volume 78 fL (80-97); Mean Platelet Volume 7.9 fL (7.4-10.4); Platelet Count 275 10^3/uL (150-450); Red Blood Count 4.89 10^6 /uL (3.70-4.87); Red Cell Distribution Width 16 % (10-15)
[2020-08-29 15:11] LABS: Acetaminophen < 15 mcg/mL; Alcohol, S < 10 mg/dL (<10); Salicylate < 2.50 mg/dL (<30)
[2020-08-29 15:12] LABS: TSH Ultra Thyroid Stim Horm 1.85 mcIU/mL (0.34-5.60)
[2020-08-29] MEDS ORDERED: Al Hydrox/Mg Hydrox/Simet LIQ 30 ML UDC PO PRN (17:00)
[2020-08-30] MEDS: Nicotine GUM 2MG FRUIT FLAVOR PO PRN ×2 (09:34→12:27)
[2020-08-30] MEDS: Nicotine PATCH 21 MG/24 HR PATCH TRANSDERM SCH (10:35)
[2020-08-30] MEDS ORDERED: Nicotine Lozenge mini 4 MG LOZNG.MINI MT PRN (14:24)
[2020-08-30] MEDS ORDERED: Paliperidone SUSTENNA 234 MG/1.5 ML IM ONE (14:25)
[2020-08-30] MEDS: Nicotine GUM 4MG FRUIT FLAVOR PO PRN (16:04)
[2020-08-31 08:07] LABS: HDL Cholesterol 34.4 mg/dL
[2020-08-31] MEDS: Nicotine PATCH 21 MG/24 HR PATCH TRANSDERM SCH (08:23)
[2020-08-31] MEDS: Nicotine GUM 4MG FRUIT FLAVOR PO PRN ×2 (08:25→17:34)
[2020-08-31] MEDS ORDERED: Ondansetron ODT 4 mg TAB 4 MG TAB PO PRN (09:03)
[2020-08-31 21:49] VITALS: BP 145/70
== END 2020-08-31 21:15 | disposition home or self-care (01) | DRG 885 ==
LOC: ED 13:31 → BSU 17:00
PROVIDERS: ADMIT Psychiatry & Neurology Psychiatry; ATTEND Psychiatry & Neurology Psychiatry